=== PATIENT | male | born 1985 | race Caucasian/White ===

== ENCOUNTER → 2017-10-28 | Outpatient (CLI) | payer BC, OTHER ==
--- NOTE | 2017-10-28 15:37 | US ---
EXAMINATION TYPE: US carotid duplex BILAT DATE OF EXAM: 10/28/2017 COMPARISON: NONE CLINICAL HISTORY: R42 DIZZINESS. only symptoms is dizziness, no h/o stroke or high bp EXAM MEASUREMENTS: RIGHT: Peak Systolic Velocity (PSV) cm/sec ----- Right CCA: 95.2 ----- Right ICA: 73.5 ----- Right ECA: 95.2 ICA/CCA ratio: 0.8 RIGHT: End Diastole cm/sec ----- Right CCA: 18.2 ----- Right ICA: 32.2 ----- Right ECA: 22.7 LEFT: Peak Systolic Velocity (PSV) cm/sec ----- Left CCA: 89.6 ----- Left ICA: 74.5 ----- Left ECA: 84.3 ICA/CCA ratio: 0.8 LEFT: End Diastole cm/sec ----- Left CCA: 24.1 ----- Left ICA: 33.9 ----- Left ECA: 19.8 VERTEBRALS (direction of flow): Right Vertebral: Antegrade Left Vertebral: Antegrade Rhythm: Normal Mild homogeneous plaque seen with no significant stenosis IMPRESSION: 1. Minimal intimal thickening without significant flow-limiting stenosis. Criteria for Assigning % of Stenosis / Diameter reduction (Estimation based on the indirect measurements of the internal carotid artery velocities (ICA PSV). 1. Normal (no stenosis)=ICA PSV < 125 cm/s: ratio < 2.0: ICA EDV<40 cm/s. 2. Less than 50% stenosis=ICA PSV < 125 cm/s: ratio < 2.0: ICA EDV<40 cm/s. 3. 50 to 69% stenosis=ICA PSV of 125 to 230 cm/s: ration 2.0 ? 4.0: ICA EDV 40-100 cm/s. 4. Greater than 70% stenosis to near occlusion= ICA PSV > 230 cm/s: ratio > 4.0: ICA EDV > 100 cm/s. 5. Near occlusion= ICA PSV velocities may be low or undetectable: variable ratio and ICA EDV. 6. Total occlusion=unable to detect flow.
== END | disposition home or self-care (01) ==
LOC: RADUSWWP 14:48
PROVIDERS: ATTEND Psychiatry & Neurology Neurology
DX: I77.89 Other specified disorders of arteries and arterioles (principal)
CPT/HCPCS: 93880

== ENCOUNTER 2021-01-25 08:35 | Inpatient (IN) | payer BC, OTHER ==
[2021-01-25] MEDS ORDERED: ONDANSETRON 4 MG/2 ML VIAL IVP PRN (09:00)
[2021-01-25 11:00] LABS: Anisocytosis Moderate; HCT 26.7 % (39.0-53.0); Hypochromasia Marked; MCH 32.8 pg (25.0-35.0); MCHC 30.2 g/dL (31.0-37.0); MCV 108.6 fL (80.0-100.0); Macrocytosis Marked; Poikilocytosis Slight; RBC 2.45 m/uL (4.30-5.90); RDW 21.2 % (11.5-15.5)
[2021-01-25 11:11] LABS: Prothrombin Time 10.5 sec (9.0-12.0)
[2021-01-25 11:51] LABS: ALT 28 U/L (4-49); AST 47 U/L (17-59); African American GFR (CKD) >90 (>60 ml/min/1.73 sqM); Albumin 4.2 g/dL (3.5-5.0); Albumin/Globulin Ratio 1.6; Alkaline Phosphatase 66 U/L (38-126); Anion Gap 7 mmol/L; Blood Urea Nitrogen 14 mg/dL (9-20); Calcium 9.4 mg/dL (8.4-10.2); Carbon Dioxide 28 mmol/L (22-30); Chloride 106 mmol/L (98-107); Globulin 2.6 g/dL; Glucose 123 mg/dL (74-99); Non-African American GFR(CKD) >90 (>60 ml/min/1.73 sqM); Phosphorus 4.2 mg/dL (2.5-4.5); Potassium 4.1 mmol/L (3.5-5.1); Sodium 141 mmol/L (137-145); Total Bilirubin 0.7 mg/dL (0.2-1.3); Total Protein 6.8 g/dL (6.3-8.2); Uric Acid 7.9 mg/dL (3.5-8.5)
[2021-01-25] MEDS: SODIUM CHLORIDE 0.9% 1,000 ML IV SCH ×2 (11:57→18:09)
[2021-01-25] MEDS: SALT AND SODA MOUTHWASH 1,000 ML PO SCH ×3 (11:57→19:34)
[2021-01-25 12:00] LABS: Platelet Count 15 k/uL (150-450)
[2021-01-25 12:09] LABS: Band Neutrophils % 1 %; Metamyelocytes % 1 %; Myelocytes % 2 %; Neutrophils % (M) 24 %; Promyelocytes % 1 %
[2021-01-25 12:11] LABS: Nucleated Red Blood Cells 7 /100 WBC (0-0); Total Cells Counted 200
[2021-01-25 12:12] LABS: Metamyelocytes # (M) 0.39 k/uL (0); Monocytes # (M) 0.79 k/uL (0-1.0); Myelocytes # (M) 0.79 k/uL (0); Promyelocytes # (M) 0.39 k/uL (0); WBC 39.3 k/uL (3.8-10.6)
[2021-01-25 12:14] LABS: Polychromasia Present
[2021-01-25] MEDS ORDERED: LIDOCAINE 1% INJ 10MG/ML (20 ML MDV) SQ ONE (12:42)
[2021-01-25] MEDS ORDERED: metroNIDAZOLE 250 MG TABLET PO SCH (13:00)
--- NOTE | 2021-01-25 13:24 | IR ---
PICC LINE PLACEMENT: HISTORY: Infection requiring long-term antibiotic therapy PROCEDURE: Ultrasound and fluoroscopic guidance of PICC line placement. COMPLICATIONS: None ANESTHESIA: 1. 1% Lidocaine locally. FINDINGS/TECHNIQUE: The procedure was explained to the patient. The risks, complications, benefits and alternatives were discussed and any questions were answered. Informed consent was obtained. The patient was placed supine on the fluoroscopic table and prepped and draped in the usual sterile fash ion. Utilizing a 21 gauge needle and sonographic and fluoroscopic guidance, access in the basilic v ein was achieved and there is placement of a 0.018 guidewire. The vein is patent. A 4-F sheath was placed over the guidewire. The guidewire and dilator were removed and a 4-F. PICC line was placed th rough the sheath with the tip at the level of the SVC. The sheath was removed, the catheter was flus hed and sutured into position. The patient was stable throughout the procedure and remained stable u juan discharge from the Department of Radiology. The vein puncture was patent under ultrasound. A ortega scale image was obtained to document patency of the vein punctured. All elements of the maximal barrier technique were utilized. FLUOROSCOPY TIME: 0.2 minutes and one image submitted IMPRESSION: Successful PICC line placement under ultrasound and fluoroscopic guidance.
[2021-01-25] MEDS: PENICILLIN VK 500 MG TAB PO SCH ×2 (14:25→18:09)
[2021-01-25] MEDS: LEVOFLOXACIN 500 MG TAB PO SCH (14:26)
[2021-01-25] MEDS: DEXAMETHASONE SOD PHOSPHATE 10 MG/ML 1 ML VIAL IV SCH (14:27)
[2021-01-25] MEDS: FAMOTIDINE 20 MG/2 ML VIAL IV SCH (14:27)
[2021-01-25] MEDS: ONDANSETRON 16 MG in SODIUM CHLORIDE 0.9% 50 ML IVPB SCH (14:27)
[2021-01-25] MEDS: CYTARABINE IV SCH (15:23)
[2021-01-25] MEDS: IDArubicin HCL 20 MG, IDArubicin HCL 4 MG in EMPTY SYRINGE 1 SYR IV SCH ×2 (15:23)
[2021-01-25] MEDS: SODIUM CHLORIDE 0.9% IV SCH (15:23)
--- NOTE | 2021-01-25 16:54 | P.HPIM ---
History of Present Illness H&P Date: 01/25/21 Chief Complaint: AML, admit for CIVI induction chemotherapy with 7+3 regimen Mr. Ramos is a very pleasant 35-year-old male patient who recently had an abscessed tooth. Around the same time it was noted that his white count was increasing and his other counts were decreasing, he was also experiencing some mildly unusual fatigue. He was evaluated by Dr. Gresham and found to have a serial increasing white count as well as serial decreasing hemoglobin and platelets. Patient's hemoglobin has went from normal to 8 and about a week and a half. He had bone marrow biopsy and aspirate last week, preliminary results called to Dr. Gresham 2 days ago, unfortunate diagnosis of AML. Cytogenetics are pending. Patient is admitted today for CIVI 7 +3 induction chemotherapy regimen than for acute myeloid leukemia. He comes in today with no physical complaints and a 14 point review of systems, he is denying any current bleeding, some easy bruising, he is still on medication for his abscessed tooth. He has brought that with him. Review of Systems 14 point ROS is neg except as stated in HPI Past Medical History Past Medical History: Cancer Additional Past Medical History / Comment(s): AML, anemia/low RBC, elevated WBC, recent root canal with infection being treated with abx, occasional back pain History of Any Multi-Drug Resistant Organisms: None Reported Past Surgical History: Tonsillectomy Additional Past Surgical History / Comment(s): BMA/biopsy, EGD, colonoscopy Past Anesthesia/Blood Transfusion Reactions: No Reported Reaction Past Psychological History: No Psychological Hx Reported Smoking Status: Never smoker Past Alcohol Use History: None Reported Past Drug Use History: None Reported - Past Family History Mother Family Medical History: No Reported History Father Family Medical History: Osteoarthritis (OA) Medications and Allergies Home Medications Medication Instructions Recorded Confirmed Type Chlorhexidine Gluconate [Peridex] 15 ml PO DAILY 01/25/21 01/25/21 History Omeprazole [PriLOSEC] 40 mg PO BID 01/25/21 01/25/21 History Penicillin V Potassium [Pen Vee K] 500 mg PO QID 01/25/21 01/25/21 History metroNIDAZOLE [Flagyl] 250 mg PO QID 01/25/21 01/25/21 History Allergies Allergy/AdvReac Type Severity Reaction Status Date / Time No Known Allergies Allergy Verified 05/09/15 17:49 Physical Exam Vitals: Vital Signs Temp Pulse Resp BP Pulse Ox 01/25/21 09:23 98.1 F 93 18 137/86 99 Intake and Output 01/24/21 01/25/21 01/25/21 22:59 06:59 14:59 Other: Weight 106.9 kg - Constitutional General appearance: average body habitus, cooperative, no acute distress - EENT abscess tooth Eyes: anicteric sclerae, EOMI ENT: no hard of hearing, hearing grossly normal, no NA/AT, normal oropharynx, no other, no pharyngeal erythema, no thrush, no tonsillar exudates, no tonsillar swelling - Neck Neck: no lymphadenopathy, normal ROM - Respiratory Respiratory: bilateral: CTA - Cardiovascular Rhythm: regular Heart sounds: normal: S1, S2 Abnormal Heart Sounds: no systolic murmur, no diastolic murmur, no rub, no S3 Gallop, no S4 Gallop, no click, no other leg Peripheral Edema: bilateral: None - Gastrointestinal General gastrointestinal: no absent bowel sounds, no decreased bowel sounds, no distended, no hepatomegaly, no hyperactive bowel sounds, normal bowel sounds, no organomegaly, no rigid, no scaphoid, soft, no splenomegaly, no tenderness, no umbilical hernia, no ventral hernia - Integumentary Integumentary: normal, normal turgor - Neurologic Neurologic: CNII-XII intact - Musculoskeletal Musculoskeletal: strength equal bilaterally - Psychiatric Psychiatric: A&O x's 3, appropriate affect, intact judgment & insight Results CBC & Chem 7: 01/25/21 10:32 01/25/21 10:32 Thrombosis Risk Factor Assmnt - DVT/VTE Prophylaxis DVT/VTE Prophylaxis: Contraindicated - See note (Platelets are 15,000) - Choose All That Apply Any of the Below Risk Factors Present?: Yes Each Factor Represents 1 point: Obesity (BMI >25) Other Risk Factors: Yes Each Risk Factor Represents 2 Points: Malignancy Other congenital or acquired thrombophilia - If yes, enter type in comment: No Thrombosis Risk Factor Assessment Total Risk Factor Score: 3 Thrombosis Risk Factor Assessment Level: Moderate Risk Assessment and Plan (1) AML (acute myeloid leukemia) Narrative/Plan: New diagnosis, still pending cytology. Dr. Gresham reviewed the pathology, treatment recommendations as well as the follow-up plan. Risks versus benefit. Prognosis. F/U plans. Admit for 7+3 induction chemotherapy regimen. Orders reviewed. PICC line placement. Chemotherapy education, RN will provide. Diet as tolerated, liberal fluid intake Activity as tolerated, mandatory ambulation 4 times a day Supportive medications ordered. CBC and CMP monitoring. Uric acid and phos daily. Elitek will be ordered if needed for TLS. Current Visit: Yes Status: Acute Priority: High Code(s): C92.00 - ACUTE MYELOBLASTIC LEUKEMIA, NOT HAVING ACHIEVED REMISSION SNOMED Code(s): 59799783 (2) Tooth abscess Narrative/Plan: Patient brought his oral rinse medication from home. He will continue this as prescribed. RN will send him down to Pharmacy for documentation. Levaquin 500 mg by mouth daily added Current Visit: Yes Status: Acute Priority: High Code(s): K04.7 - P ERIAPICAL ABSCESS WITHOUT SINUS SNOMED Code(s): 148114063 Plan: Doctor attests: I performed a history and physical examination of this patient, developed impression and plan of care. Discussed with dictator. I agree with dictators note, documented as a scribe. Time with Patient: Greater than 30
[2021-01-26] MEDS: SALT AND SODA MOUTHWASH 1,000 ML PO SCH ×5 (00:13→20:31)
[2021-01-26] MEDS: SODIUM CHLORIDE 0.9% 1,000 ML IV SCH ×3 (00:15→18:31)
[2021-01-26 06:45] LABS: ALT 23 U/L (4-49); AST 39 U/L (17-59); African American GFR (CKD) >90 (>60 ml/min/1.73 sqM); Albumin 3.6 g/dL (3.5-5.0); Albumin/Globulin Ratio 1.6; Alkaline Phosphatase 57 U/L (38-126); Anion Gap 3 mmol/L; Blood Urea Nitrogen 16 mg/dL (9-20); Calcium 8.6 mg/dL (8.4-10.2); Carbon Dioxide 27 mmol/L (22-30); Chloride 108 mmol/L (98-107); Globulin 2.3 g/dL; Glucose 116 mg/dL (74-99); Non-African American GFR(CKD) >90 (>60 ml/min/1.73 sqM); Phosphorus 4.1 mg/dL (2.5-4.5); Sodium 138 mmol/L (137-145); Total Bilirubin 0.7 mg/dL (0.2-1.3); Total Protein 5.9 g/dL (6.3-8.2); Uric Acid 5.9 mg/dL (3.5-8.5)
[2021-01-26 06:46] LABS: Anisocytosis Moderate; HCT 23.9 % (39.0-53.0); Hypochromasia Marked; MCHC 29.2 g/dL (31.0-37.0); MCV 109.6 fL (80.0-100.0); Macrocytosis Marked; Mean Platelet Volume 6.3; Poikilocytosis Slight; Potassium 4.1 mmol/L (3.5-5.1); RBC 2.18 m/uL (4.30-5.90); RDW 21.3 % (11.5-15.5)
[2021-01-26 07:08] LABS: Platelet Count 15 k/uL (150-450)
[2021-01-26] MEDS ORDERED: ENOXAPARIN 40 MG/0.4 ML SYRINGE SQ SCH (09:00)
[2021-01-26] MEDS: LEVOFLOXACIN 500 MG TAB PO SCH (12:55)
[2021-01-26 13:29] LABS: Metamyelocytes % 1 %; Myelocytes % 2 %; Neutrophils % (M) 33 %; Promyelocytes % 2 %
[2021-01-26 13:30] LABS: Lymphocytes # (M) 4.65 k/uL (1.0-4.8); Metamyelocytes # (M) 0.33 k/uL (0); Monocytes # (M) 0.33 k/uL (0-1.0); Myelocytes # (M) 0.66 k/uL (0); Neutrophils # (M) 10.96 k/uL (1.3-7.7); Nucleated Red Blood Cells 7 /100 WBC (0-0); Promyelocytes # (M) 0.66 k/uL (0); Total Cells Counted 200; WBC 33.2 k/uL (3.8-10.6)
[2021-01-26 13:31] LABS: Polychromasia Present
[2021-01-26] MEDS: DEXAMETHASONE SOD PHOSPHATE 10 MG/ML 1 ML VIAL IV SCH (16:12)
[2021-01-26] MEDS: ONDANSETRON 16 MG in SODIUM CHLORIDE 0.9% 50 ML IVPB SCH (16:12)
[2021-01-26] MEDS: FAMOTIDINE 20 MG/2 ML VIAL IV SCH (16:12)
[2021-01-26] MEDS: IDArubicin HCL 20 MG, IDArubicin HCL 4 MG in EMPTY SYRINGE 1 SYR IV SCH ×2 (16:25)
[2021-01-26] MEDS: CYTARABINE IV SCH (16:26)
[2021-01-26] MEDS: SODIUM CHLORIDE 0.9% IV SCH (16:26)
--- NOTE | 2021-01-26 17:14 | P.PN ---
Subjective Progress Note Date: 01/26/21 Principal diagnosis: Day two of Induction with Chemotherapy for AML Some oozing around picc line, no swelling, no pain Platelets 15K, Hemoglobin 7. Afebrile Objective - Vital Signs Vital signs: Vital Signs Temp 98.0 F 01/26/21 12:00 Pulse 74 01/26/21 12:00 Resp 17 01/26/21 12:00 BP 115/73 01/26/21 12:00 Pulse Ox 99 01/26/21 12:00 Intake & Output 01/25/21 01/26/21 01/26/21 18:59 06:59 18:59 Intake Total 550 2840 Balance 550 2840 Weight 106.9 kg Intake: Intake, IV Titration 550 1760 Amount Cytarabine 400 mg In 260 Sodium Chloride 0.9% 500 ml 500 ml @ 21.667 mls/hr IV Q24H [facility] Rx#: [id number] Ondansetron 16 mg In 50 Sodium Chloride 0.9% 50 ml @ 232 mls/hr IVPB Q24H [facility] Rx#:[id number] Sodium Chloride 0.9% 1, 500 1500 000 ml @ 125 mls/hr IV . Q8H [facility] Rx#:[id number] Oral 1080 - Exam - Constitutional General appearance: average body habitus, cooperative, no acute distress - EENT abscess tooth Eyes: anicteric sclerae, EOMI ENT: no hard of hearing, hearing grossly normal, no NA/AT, normal oropharynx, no other, no pharyngeal erythema, no thrush, no tonsillar exudates, no tonsillar swelling - Neck Neck: no lymphadenopathy, normal ROM - Respiratory Respiratory: bilateral: CTA - Cardiovascular Rhythm: regular Heart sounds: normal: S1, S2 Abnormal Heart Sounds: no systolic murmur, no diastolic murmur, no rub, no S3 Gallop, no S4 Gallop, no click, no other leg Peripheral Edema: bilateral: None - Gastrointestinal General gastrointestinal: no absent bowel sounds, no decreased bowel sounds, no distended, no hepatomegaly, no hyperactive bowel sounds, normal bowel sounds, no organomegaly, no rigid, no scaphoid, soft, no splenomegaly, no tenderness, no umbilical hernia, no ventral hernia - Integumentary Integumentary: normal, normal turgor - Neurologic Neurologic: CNII-XII intact - Musculoskeletal Musculoskeletal: strength equal bilaterally - Psychiatric Psychiatric: A&O x's 3, appropriate affect, intact judgment & insight - Labs CBC & Chem 7: 01/26/21 06:14 01/26/21 06:14 Labs: Abnormal Lab Results - Last 24 Hours (Table) 01/26/21 01/26/21 Range/Units 06:14 06:14 WBC 33.2 H (3.8-10.6) k/uL RBC 2.18 L (4.30-5.90) m/uL Hgb 7.0 L (13.0-17.5) gm/dL Hct 23.9 L (39.0-53.0) % MCV 109.6 H (80.0-100.0) fL MCHC 29.2 L (31.0-37.0) g/dL RDW 21.3 H (11.5-15.5) % Plt Count 15 L* (150-450) k/uL Blast Cells % 50 H* % Neutrophils # (Manual) 10.96 H (1.3-7.7) k/uL Metamyelocytes # (Man) 0.33 H (0) k/uL Myelocytes # (Manual) 0.66 H (0) k/uL Promyelocytes # (Man) 0.66 H (0) k/uL Blast Cells # (Man) 16.60 H (0) k/uL Nucleated RBCs 7 H (0-0) /100 WBC Macrocytosis Marked A Chloride 108 H (98-107) mmol/L Glucose 116 H (74-99) mg/dL Total Protein 5.9 L (6.3-8.2) g/dL Assessment and Plan Plan: Thrombosis Risk Factor Assmnt - DVT/VTE Prophylaxis DVT/VTE Prophylaxis: Contraindicated - See note (Platelets are 15,000) - Choose All That Apply Any of the Below Risk Factors Present?: Yes Each Factor Represents 1 point: Obesity (BMI >25) Other Risk Factors: Yes Each Risk Factor Represents 2 Points: Malignancy Other congenital or acquired thrombophilia - If yes, enter type in comment: No Thrombosis Risk Factor Assessment Total Risk Factor Score: 3 Thrombosis Risk Factor Assessment Level: Moderate Risk Assessment and Plan: AML (acute myeloid leukemia) - New diagnosis, still pending cytology. - Dr. Gresham reviewed the pathology, treatment recommendations as well as the follow-up plan. Risks versus benefit. Prognosis. F/U plans. - Continue with Day 2 of 7+3 induction chemotherapy regimen. - Status Post Picc Line Activity as tolerated, mandatory ambulation 4 times a day Supportive medications ordered. CBC and CMP monitoring. Uric acid and phos daily. Elitek will be ordered if needed for TLS. Current Visit: Yes Status: Acute Priority: High Code(s): C92.00 - ACUTE MYELOBLASTIC LEUKEMIA, NOT HAVING ACHIEVED REMISSION SNOMED Code(s): 21636362 Tooth abscess Patient brought his oral rinse medication from home. He will continue this as prescribed. RN will send him down to Pharmacy for documentation. Levaquin 500 mg by mouth daily added Current Visit: Yes Status: Acute Priority: High Code(s): K04.7 - PERIAPICAL ABSCESS WITHOUT SINUS SNOMED Code(s): 184997960 Plan: Doctor attests: I performed a history and physical examination of this patient, developed impression and plan of care. Discussed with dictator. I agree with dictators note, documented as a scribe.
[2021-01-27] MEDS: SALT AND SODA MOUTHWASH 1,000 ML PO SCH ×6 (00:16→23:57)
[2021-01-27] MEDS: SODIUM CHLORIDE 0.9% 1,000 ML IV SCH ×3 (02:29→16:48)
[2021-01-27 05:56] LABS: Anisocytosis Moderate; HCT 22.6 % (39.0-53.0); Hypochromasia Marked; MCH 33.2 pg (25.0-35.0); MCHC 30.2 g/dL (31.0-37.0); MCV 109.9 fL (80.0-100.0); Macrocytosis Marked; Mean Platelet Volume 7.5; Poikilocytosis Slight; RBC 2.06 m/uL (4.30-5.90); RDW 20.9 % (11.5-15.5)
[2021-01-27 06:05] LABS: HGB 6.8 gm/dL (13.0-17.5); Platelet Count 12 k/uL (150-450)
[2021-01-27 06:10] LABS: Prothrombin Time 10.3 sec (9.0-12.0)
[2021-01-27 06:13] LABS: Partial Thromboplastin Time 18.9 sec (22.0-30.0)
[2021-01-27 06:16] LABS: Potassium 4.2 mmol/L (3.5-5.1)
[2021-01-27 06:17] LABS: ALT 20 U/L (4-49); AST 37 U/L (17-59); African American GFR (CKD) >90 (>60 ml/min/1.73 sqM); Albumin 3.3 g/dL (3.5-5.0); Albumin/Globulin Ratio 1.4; Alkaline Phosphatase 60 U/L (38-126); Anion Gap 3 mmol/L; Blood Urea Nitrogen 15 mg/dL (9-20); Calcium 8.6 mg/dL (8.4-10.2); Carbon Dioxide 26 mmol/L (22-30); Chloride 110 mmol/L (98-107); Globulin 2.4 g/dL; Glucose 125 mg/dL (74-99); Non-African American GFR(CKD) >90 (>60 ml/min/1.73 sqM); Phosphorus 4.1 mg/dL (2.5-4.5); Sodium 139 mmol/L (137-145); Total Bilirubin 0.6 mg/dL (0.2-1.3); Total Protein 5.7 g/dL (6.3-8.2); Uric Acid 6.4 mg/dL (3.5-8.5)
[2021-01-27 06:27] LABS: LDH 2124 U/L (313-618); Neutrophils % (M) 47 %; Nucleated Red Blood Cells 10 /100 WBC (0-0); Total Cells Counted 200
[2021-01-27 06:28] LABS: Blast Cells # (M) 9.36 k/uL (0); Lymphocytes # (M) 1.66 k/uL (1.0-4.8); Neutrophils # (M) 9.78 k/uL (1.3-7.7); WBC 20.8 k/uL (3.8-10.6)
[2021-01-27 06:29] LABS: Anisocytosis (M) Present; Poikilocytosis (M) Present; Polychromasia Present
--- NOTE | 2021-01-27 10:01 | P.PN ---
Subjective Progress Note Date: 01/27/21 Principal diagnosis: AML Pancytopenia Hgb 6.8, Plt 12 today. Today is D3 of chemotherapy. Tolerating well so far. Objective - Vital Signs Vital signs: Vital Signs Temp 98.3 F 01/27/21 08:00 Pulse 89 01/27/21 08:00 Resp 19 01/27/21 08:00 BP 117/70 01/27/21 08:00 Pulse Ox 98 01/27/21 08:00 Intake & Output 01/26/21 01/27/21 01/27/21 18:59 06:59 18:59 Intake Total 2520 Balance 2520 Intake: Intake, IV Titration 1440 Amount Cytarabine 400 mg In 240 Sodium Chloride 0.9% 500 ml 500 ml @ 21.667 mls/hr IV Q24H [facility] Rx#: [id number] Sodium Chloride 0.9% 1, 1200 000 ml @ 125 mls/hr IV . Q8H [facility] Rx#:[id number] Oral 1080 Other: # Voids 2 1 - Exam Gen: No acute distress HEENT: Conjunctival pallor. Neck: Supple Lungs: No respiratory distress Heart: Normal rate Abdomen: Soft MSK: No obvious deformities Neuro: Alert and oriented 3 Psych: Appropriate affect Skin: No jaundice - Labs CBC & Chem 7: 01/27/21 05:07 01/27/21 05:07 Labs: Abnormal Lab Results - Last 24 Hours (Table) 01/26/21 01/27/21 01/27/21 Range/Units 06:14 05:07 05:07 WBC 33.2 H 20.8 H (3.8-10.6) k/uL RBC 2.06 L (4.30-5.90) m/uL Hgb 6.8 L* (13.0-17.5) gm/dL Hct 22.6 L (39.0-53.0) % MCV 109.9 H (80.0-100.0) fL MCHC 30.2 L (31.0-37.0) g/dL RDW 20.9 H (11.5-15.5) % Plt Count 12 L* (150-450) k/uL Blast Cells % 50 H* 45 H* % Neutrophils # (Manual) 10.96 H 9.78 H (1.3-7.7) k/uL Lymphocytes # 6.1 H (1.0-4.8) k/uL Monocytes # 3.9 H (0-1.0) k/uL Metamyelocytes # (Man) 0.33 H (0) k/uL Myelocytes # (Manual) 0.66 H (0) k/uL Promyelocytes # (Man) 0.66 H (0) k/uL Blast Cells # (Man) 16.60 H 9.36 H (0) k/uL Nucleated RBCs 7 H 10 H (0-0) /100 WBC Macrocytosis Marked A APTT (22.0-30.0) sec Chloride 110 H (98-107) mmol/L Glucose 125 H (74-99) mg/dL Lactate Dehydrogenase 2124 H (313-618) U/L Total Protein 5.7 L (6.3-8.2) g/dL Albumin 3.3 L (3.5-5.0) g/dL 01/27/21 Range/Units 05:07 WBC (3.8-10.6) k/uL RBC (4.30-5.90) m/uL Hgb (13.0-17.5) gm/dL Hct (39.0-53.0) % MCV (80.0-100.0) fL MCHC (31.0-37.0) g/dL RDW (11.5-15.5) % Plt Count (150-450) k/uL Blast Cells % % Neutrophils # (Manual) (1.3-7.7) k/uL Lymphocytes # (1.0-4.8) k/uL Monocytes # (0-1.0) k/uL Metamyelocytes # (Man) (0) k/uL Myelocytes # (Manual) (0) k/uL Promyelocytes # (Man) (0) k/uL Blast Cells # (Man) (0) k/uL Nucleated RBCs (0-0) /100 WBC Macrocytosis APTT 18.9 L (22.0-30.0) sec Chloride (98-107) mmol/L Glucose (74-99) mg/dL Lactate Dehydrogenase (313-618) U/L Total Protein (6.3-8.2) g/dL Albumin (3.5-5.0) g/dL Assessment and Plan Assessment: AML Pancytopenia due to AML Plan: Mr. Ramos is a very pleasant 35 yo male with newly found AML who is here for induction chemotherapy with 7+3. Today's day 3 of chemo. Tolerating well so far. Continues to have bicytopenia with leukocytosis, white count decreasing slowly down to 20 today, and hemoglobin 6.8 with platelets of 12 today. Plan on PRBC transfusion today, irradiated blood products. Continue with supportive transfusion with leuko-reduced and irradiated blood products to maintain hemoglobin of 7 and platelets above 10 or bleeding. Continue chemotherapy. Continue supportive medications. Discussed with patient is agreeable to the plan. All of his questions were answered.
[2021-01-27] MEDS: LEVOFLOXACIN 500 MG TAB PO SCH (13:15)
[2021-01-27] MEDS: FAMOTIDINE 20 MG/2 ML VIAL IV SCH (16:42)
[2021-01-27] MEDS: DEXAMETHASONE SOD PHOSPHATE 10 MG/ML 1 ML VIAL IV SCH (16:42)
[2021-01-27] MEDS: ONDANSETRON 16 MG in SODIUM CHLORIDE 0.9% 50 ML IVPB SCH (16:42)
[2021-01-27] MEDS: IDArubicin HCL 20 MG, IDArubicin HCL 4 MG in EMPTY SYRINGE 1 SYR IV SCH ×2 (16:50)
[2021-01-27] MEDS: CYTARABINE IV SCH (16:52)
[2021-01-27] MEDS: SODIUM CHLORIDE 0.9% IV SCH (16:52)
[2021-01-28] MEDS: SODIUM CHLORIDE 0.9% 1,000 ML IV SCH ×2 (02:22→12:46)
[2021-01-28 05:54] LABS: Anisocytosis Moderate; HCT 23.6 % (39.0-53.0); HGB 7.5 gm/dL (13.0-17.5); Hypochromasia Marked; MCH 33.6 pg (25.0-35.0); MCHC 31.8 g/dL (31.0-37.0); MCV 105.7 fL (80.0-100.0); Macrocytosis Marked; Mean Platelet Volume 7.5; Poikilocytosis Moderate; RBC 2.24 m/uL (4.30-5.90); RDW 21.3 % (11.5-15.5); WBC 6.5 k/uL (3.8-10.6)
[2021-01-28 06:04] LABS: ALT 19 U/L (4-49); AST 30 U/L (17-59); African American GFR (CKD) >90 (>60 ml/min/1.73 sqM); Albumin 3.5 g/dL (3.5-5.0); Albumin/Globulin Ratio 1.5; Alkaline Phosphatase 51 U/L (38-126); Anion Gap 3 mmol/L; Blood Urea Nitrogen 16 mg/dL (9-20); Calcium 8.7 mg/dL (8.4-10.2); Carbon Dioxide 26 mmol/L (22-30); Chloride 111 mmol/L (98-107); Globulin 2.3 g/dL; Glucose 126 mg/dL (74-99); Non-African American GFR(CKD) >90 (>60 ml/min/1.73 sqM); Phosphorus 4.3 mg/dL (2.5-4.5); Potassium 4.3 mmol/L (3.5-5.1); Sodium 140 mmol/L (137-145); Total Bilirubin 0.7 mg/dL (0.2-1.3); Total Protein 5.8 g/dL (6.3-8.2); Uric Acid 5.8 mg/dL (3.5-8.5)
[2021-01-28 06:31] LABS: Platelet Count 10 k/uL (150-450)
[2021-01-28 07:29] LABS: Band Neutrophils % 1 %; Lymphocytes # (M) 0.52 k/uL (1.0-4.8); Neutrophils % (M) 69 %
[2021-01-28 07:30] LABS: Blast Cells # (M) 1.56 k/uL (0); Nucleated Red Blood Cells 0 /100 WBC (0-0); Total Cells Counted 200
--- NOTE | 2021-01-28 10:12 | P.PN ---
Subjective Progress Note Date: 01/28/21 Principal diagnosis: AML Leukocytosis Anemia Thrombocytopenia Hgb 7.5 after 1 unit pRBC yesterday, Plt 10 today. Today is D4 of chemotherapy. Tolerating well so far. Objective - Vital Signs Vital signs: Vital Signs Temp 97.6 F 01/28/21 08:00 Pulse 83 01/28/21 08:00 Resp 18 01/28/21 08:00 BP 145/73 01/28/21 08:00 Pulse Ox 95 01/28/21 08:00 Intake & Output 01/27/21 01/28/21 01/28/21 18:59 06:59 18:59 Intake Total 2500 3350 Balance 2500 3350 Intake: Intake, IV Titration 1000 1500 Amount Sodium Chloride 0.9% 1, 1000 1500 000 ml @ 125 mls/hr IV . Q8H [facility] Rx#:[id number] Oral 1500 1540 Blood Product 310 Rc Irr As1 Unit 310 [id number] Other: # Voids 2 - Exam Gen: No acute distress HEENT: Conjunctival pallor. Neck: Supple Lungs: No respiratory distress Heart: Normal rate Abdomen: Soft MSK: No obvious deformities Neuro: Alert and oriented 3 Psych: Appropriate affect Skin: No jaundice - Labs CBC & Chem 7: 01/28/21 04:51 01/28/21 04:51 Labs: Abnormal Lab Results - Last 24 Hours (Table) 01/27/21 01/28/21 01/28/21 Range/Units 09:46 04:51 04:51 RBC 2.24 L (4.30-5.90) m/uL Hgb 7.5 L (13.0-17.5) gm/dL Hct 23.6 L (39.0-53.0) % MCV 105.7 H (80.0-100.0) fL RDW 21.3 H (11.5-15.5) % Plt Count 10 L* (150-450) k/uL Blast Cells % 24 H* % Lymphocytes # (Manual) 0.52 L (1.0-4.8) k/uL Blast Cells # (Man) 1.56 H (0) k/uL Macrocytosis Marked A Chloride 111 H (98-107) mmol/L Glucose 126 H (74-99) mg/dL Total Protein 5.8 L (6.3-8.2) g/dL Crossmatch See Detail Assessment and Plan Assessment: AML Leukocytosis due to AML Bicytopenia, anemia and thrombocytopenia, due to AML Plan: Mr. Ramos is a very pleasant 35 yo male with newly found AML who is here for induction chemotherapy with 7+3. Today's day 4 of chemo. Tolerating well so far. Continues to have bicytopenia with leukocytosis, white count decreasing slowly down to 6.5 today, and hemoglobin 7.5 after 1 unit pRBC yesterday, with platelets of 10 today. Plan on plt transfusion today, irradiated blood products. Continue with supportive transfusion with leuko-reduced and irradiated blood products to maintain hemoglobin of 7 and platelets above 10 or bleeding. Monitor for TLS, no signs of this at this time. Continue chemotherapy. Continue supportive medications. Discussed with patient is agreeable to the plan. All of his questions were an swered.
[2021-01-28] MEDS: LEVOFLOXACIN 500 MG TAB PO SCH (12:45)
[2021-01-28] MEDS: SALT AND SODA MOUTHWASH 1,000 ML PO SCH ×4 (12:46→19:25)
[2021-01-28] MEDS: FAMOTIDINE 20 MG/2 ML VIAL IV SCH (16:32)
[2021-01-28] MEDS: DEXAMETHASONE SOD PHOSPHATE 10 MG/ML 1 ML VIAL IV SCH (16:32)
[2021-01-28] MEDS: ONDANSETRON 16 MG in SODIUM CHLORIDE 0.9% 50 ML IVPB SCH (16:32)
[2021-01-28] MEDS: CYTARABINE IV SCH (17:03)
[2021-01-28] MEDS: SODIUM CHLORIDE 0.9% IV SCH (17:03)
[2021-01-29] MEDS: SODIUM CHLORIDE 0.9% 1,000 ML IV SCH ×4 (00:10→17:10)
[2021-01-29] MEDS: SALT AND SODA MOUTHWASH 1,000 ML PO SCH ×5 (00:12→20:27)
[2021-01-29 05:47] LABS: Anisocytosis Moderate; HCT 22.6 % (39.0-53.0); HGB 7.3 gm/dL (13.0-17.5); Hypochromasia Marked; MCH 33.7 pg (25.0-35.0); MCHC 32.4 g/dL (31.0-37.0); MCV 104.2 fL (80.0-100.0); Macrocytosis Marked; Mean Platelet Volume 7.4; Poikilocytosis Moderate; RBC 2.17 m/uL (4.30-5.90); RDW 20.2 % (11.5-15.5)
[2021-01-29 05:53] LABS: Platelet Count 12 k/uL (150-450)
[2021-01-29 06:08] LABS: ALT 17 U/L (4-49); AST 24 U/L (17-59); African American GFR (CKD) >90 (>60 ml/min/1.73 sqM); Albumin 3.5 g/dL (3.5-5.0); Albumin/Globulin Ratio 1.5; Alkaline Phosphatase 44 U/L (38-126); Anion Gap 5 mmol/L; Blood Urea Nitrogen 16 mg/dL (9-20); Calcium 9.1 mg/dL (8.4-10.2); Carbon Dioxide 26 mmol/L (22-30); Chloride 108 mmol/L (98-107); Globulin 2.4 g/dL; Glucose 126 mg/dL (74-99); Non-African American GFR(CKD) >90 (>60 ml/min/1.73 sqM); Phosphorus 4.4 mg/dL (2.5-4.5); Potassium 4.2 mmol/L (3.5-5.1); Sodium 139 mmol/L (137-145); Total Bilirubin 0.7 mg/dL (0.2-1.3); Total Protein 5.9 g/dL (6.3-8.2); Uric Acid 4.9 mg/dL (3.5-8.5)
[2021-01-29 06:36] LABS: Band Neutrophils % 6 %; Neutrophils % (M) 68 %; Nucleated Red Blood Cells 10 /100 WBC (0-0); Total Cells Counted 100
[2021-01-29 06:37] LABS: Lymphocytes # (M) 0.17 k/uL (1.0-4.8); WBC 1.4 k/uL (3.8-10.6)
[2021-01-29 06:38] LABS: Anisocytosis (M) Present; Poikilocytosis (M) Present
[2021-01-29] MEDS: LEVOFLOXACIN 500 MG TAB PO SCH (12:07)
--- NOTE | 2021-01-29 15:24 | P.PN ---
Subjective Progress Note Date: 01/29/21 Principal diagnosis: Day two of Induction with Chemotherapy for AML Hemoglobin 7.3, platelets 12K. No fevers, s/s infection or bleedign. Objective - Vital Signs Vital signs: Vital Signs Temp 98.4 F 01/29/21 12:00 Pulse 78 01/29/21 12:00 Resp 18 01/29/21 12:00 BP 130/81 01/29/21 12:00 Pulse Ox 100 01/29/21 12:00 Intake & Output 01/28/21 01/29/21 01/29/21 18:59 06:59 18:59 Intake Total 1274 360 Balance 1274 360 Intake: Intake, IV Titration 1000 Amount Sodium Chloride 0.9% 1, 1000 000 ml @ 125 mls/hr IV . Q8H [facility] Rx#:[id number] Oral 360 Blood Product 274 Platelet Pheresis Pas 274 Psoralen Unit [id number] - Exam - Constitutional General appearance: average body habitus, cooperative, no acute distress - EENT abscess tooth Eyes: anicteric sclerae, EOMI ENT: no hard of hearing, hearing grossly normal, no NA/AT, normal oropharynx, no other, no pharyngeal erythema, no thrush, no tonsillar exudates, no tonsillar swelling - Neck Neck: no lymphadenopathy, normal ROM - Respiratory Respiratory: bilateral: CTA - Cardiovascular Rhythm: regular Heart sounds: normal: S1, S2 Abnormal Heart Sounds: no systolic murmur, no diastolic murmur, no rub, no S3 Gallop, no S4 Gallop, no click, no other leg Peripheral Edema: bilateral: None - Gastrointestinal General gastrointestinal: no absent bowel sounds, no decreased bowel sounds, no distended, no hepatomegaly, no hyperactive bowel sounds, normal bowel sounds, no organomegaly, no rigid, no scaphoid, soft, no splenomegaly, no tenderness, no umbilical hernia, no ventral hernia - Integumentary Integumentary: normal, normal turgor - Neurologic Neurologic: CNII-XII intact - Musculoskeletal Musculoskeletal: strength equal bilaterally - Psychiatric Psychiatric: A&O x's 3, appropriate affect, intact judgment & insight - Labs CBC & Chem 7: 01/29/21 05:10 01/29/21 05:10 Labs: Abnormal Lab Results - Last 24 Hours (Table) 01/29/21 01/29/21 Range/Units 05:10 05:10 WBC 1.4 L* (3.8-10.6) k/uL RBC 2.17 L (4.30-5.90) m/uL Hgb 7.3 L (13.0-17.5) gm/dL Hct 22.6 L (39.0-53.0) % MCV 104.2 H (80.0-100.0) fL RDW 20.2 H (11.5-15.5) % Plt Count 12 L* (150-450) k/uL Blast Cells % 14 H* % Neutrophils # (Manual) 1.00 L (1.3-7.7) k/uL Lymphocytes # (Manual) 0.17 L (1.0-4.8) k/uL Blast Cells # (Man) 0.20 H (0) k/uL Nucleated RBCs 10 H (0-0) /100 WBC Macrocytosis Marked A Chloride 108 H (98-107) mmol/L Creatinine 0.55 L (0.66-1.25) mg/dL Glucose 126 H (74-99) mg/dL Total Protein 5.9 L (6.3-8.2) g/dL Assessment and Plan Plan: Thrombosis Risk Factor Assmnt - DVT/VTE Prophylaxis DVT/VTE Prophylaxis: Contraindicated - See note (Platelets are 15,000) - Choose All That Apply Any of the Below Risk Factors Present?: Yes Each Factor Represents 1 point: Obesity (BMI >25) Other Risk Factors: Yes Each Risk Factor Represents 2 Points: Malignancy Other congenital or acquired thrombophilia - If yes, enter type in comment: No Thrombosis Risk Factor Assessment Total Risk Factor Score: 3 Thrombosis Risk Factor Assessment Level: Moderate Risk Assessment and Plan: AML (acute myeloid leukemia) - New diagnosis, still pending cytology. - Dr. Gresham reviewed the pathology, treatment recommendations as well as the follow-up plan. Risks versus benefit. Prognosis. F/U plans. - Continue with Day 2 of 7+3 induction chemotherapy regimen. - Status Post Picc Line Activity as tolerated, mandatory ambulation 4 times a day Supportive medications ordered. CBC and CMP monitoring. Uric acid and phos daily. Elitek will be ordered if needed for TLS. Current Visit: Yes Status: Acute Priority: High Code(s): C92.00 - ACUTE MYELOBLASTIC LEUKEMIA, NOT HAVING ACHIEVED REMISSION SNOMED Code(s): 88907777 Tooth abscess Levaquin 500 mg by mouth daily added Current Visit: Yes Status: Acute Priority: High Code(s): K04.7 - PERIAPICAL ABSCESS WITHOUT SINUS SNOMED Code(s): 977469824 Plan: - COnitnue on Induction Chemo - COntinue daily labs - Supportive care - PRN Irradiated transfusions prn Doctor attests: I performed a history and physical examination of this patient, developed impression and plan of care. Discussed with dictator. I agree with dictators note, documented as a scribe.
[2021-01-29] MEDS: FAMOTIDINE 20 MG/2 ML VIAL IV SCH (16:37)
[2021-01-29] MEDS: DEXAMETHASONE SOD PHOSPHATE 10 MG/ML 1 ML VIAL IV SCH (16:39)
[2021-01-29] MEDS: ONDANSETRON 16 MG in SODIUM CHLORIDE 0.9% 50 ML IVPB SCH (16:41)
[2021-01-29] MEDS: SODIUM CHLORIDE 0.9% IV SCH (17:10)
[2021-01-29] MEDS: CYTARABINE IV SCH (17:10)
[2021-01-30] MEDS: SODIUM CHLORIDE 0.9% 1,000 ML IV SCH ×3 (00:42→17:41)
[2021-01-30] MEDS: SALT AND SODA MOUTHWASH 1,000 ML PO SCH ×6 (00:42→23:26)
[2021-01-30 04:40] LABS: Anisocytosis Moderate; HCT 22.2 % (39.0-53.0); Hypochromasia Marked; MCH 32.1 pg (25.0-35.0); MCHC 31.2 g/dL (31.0-37.0); MCV 103.1 fL (80.0-100.0); Macrocytosis Marked; Mean Platelet Volume 6.9; Poikilocytosis Slight; RBC 2.15 m/uL (4.30-5.90); RDW 20.1 % (11.5-15.5)
[2021-01-30 04:43] LABS: ALT 16 U/L (4-49); AST 19 U/L (17-59); African American GFR (CKD) >90 (>60 ml/min/1.73 sqM); Albumin 3.5 g/dL (3.5-5.0); Albumin/Globulin Ratio 1.6; Alkaline Phosphatase 41 U/L (38-126); Anion Gap 5 mmol/L; Blood Urea Nitrogen 15 mg/dL (9-20); Calcium 8.9 mg/dL (8.4-10.2); Carbon Dioxide 25 mmol/L (22-30); Chloride 108 mmol/L (98-107); Globulin 2.2 g/dL; Glucose 127 mg/dL (74-99); Non-African American GFR(CKD) >90 (>60 ml/min/1.73 sqM); Phosphorus 4.2 mg/dL (2.5-4.5); Potassium 4.3 mmol/L (3.5-5.1); Sodium 138 mmol/L (137-145); Total Bilirubin 0.6 mg/dL (0.2-1.3); Total Protein 5.7 g/dL (6.3-8.2); Uric Acid 4.1 mg/dL (3.5-8.5)
[2021-01-30 04:49] LABS: HGB 6.9 gm/dL (13.0-17.5); Platelet Count 11 k/uL (150-450); WBC 0.7 k/uL (3.8-10.6)
[2021-01-30] MEDS: LEVOFLOXACIN 500 MG TAB PO SCH (11:29)
--- NOTE | 2021-01-30 14:27 | P.PN ---
Subjective Progress Note Date: 01/30/21 Principal diagnosis: Day two of Induction with Chemotherapy for AML No acute complaints, tolerating chemo well. Hemoglobin 6.9 transfusion order placed Objective - Vital Signs Vital signs: Vital Signs Temp 98 F 01/30/21 12:02 Pulse 78 01/30/21 12:02 Resp 16 01/30/21 12:02 BP 151/85 01/30/21 12:02 Pulse Ox 100 01/30/21 11:22 Intake & Output 01/29/21 01/30/21 01/30/21 18:59 06:59 18:59 Intake Total 1766 3510 0 Balance 1766 3510 0 Intake: Intake, IV Titration 1765 1740 Amount Cytarabine 400 mg In 216 240 Sodium Chloride 0.9% 500 ml 500 ml @ 21.667 mls/hr IV Q24H [facility] Rx#: [id number] Ondansetron 16 mg In 50 Sodium Chloride 0.9% 50 ml @ 232 mls/hr IVPB Q24H [facility] Rx#:[id number] Sodium Chloride 0.9% 1, 1500 1500 000 ml @ 125 mls/hr IV . Q8H [facility] Rx#:[id number] Oral 1770 Blood Product 0 Rc Irr As1 Unit 0 [id number] Other: # Voids 5 1 - Exam - Constitutional General appearance: average body habitus, cooperative, no acute distress - EENT abscess tooth Eyes: anicteric sclerae, EOMI ENT: no hard of hearing, hearing grossly normal, no NA/AT, normal oropharynx, no other, no pharyngeal erythema, no thrush, no tonsillar exudates, no tonsillar swelling - Neck Neck: no lymphadenopathy, normal ROM - Respiratory Respiratory: bilateral: CTA - Cardiovascular Rhythm: regular Heart sounds: normal: S1, S2 Abnormal Heart Sounds: no systolic murmur, no diastolic murmur, no rub, no S3 Gallop, no S4 Gallop, no click, no other leg Peripheral Edema: bilateral: None - Gastrointestinal General gastrointestinal: no absent bowel sounds, no decreased bowel sounds, no distended, no hepatomegaly, no hyperactive bowel sounds, normal bowel sounds, no organomegaly, no rigid, no scaphoid, soft, no splenomegaly, no tenderness, no umbilical hernia, no ventral hernia - Integumentary Integumentary: normal, normal turgor - Neurologic Neurologic: CNII-XII intact - Musculoskeletal Musculoskeletal: strength equal bilaterally - Psychiatric Psychiatric: A&O x's 3, appropriate affect, intact judgment & insight - Labs CBC & Chem 7: 01/30/21 03:47 01/30/21 03:47 Labs: Abnormal Lab Results - Last 24 Hours (Table) 01/27/21 01/30/21 01/30/21 Range/Units 09:46 03:47 03:47 WBC 0.7 L* (3.8-10.6) k/uL RBC 2.15 L (4.30-5.90) m/uL Hgb 6.9 L* (13.0-17.5) gm/dL Hct 22.2 L (39.0-53.0) % MCV 103.1 H (80.0-100.0) fL RDW 20.1 H (11.5-15.5) % Plt Count 11 L* (150-450) k/uL Macrocytosis Marked A Chloride 108 H (98-107) mmol/L Creatinine 0.59 L (0.66-1.25) mg/dL Glucose 127 H (74-99) mg/dL Total Protein 5.7 L (6.3-8.2) g/dL Crossmatch See Detail Assessment and Plan Plan: Thrombosis Risk Factor Assmnt - DVT/VTE Prophylaxis DVT/VTE Prophylaxis: Contraindicated - See note (Platelets are 15,000) - Choose All That Apply Any of the Below Risk Factors Present?: Yes Each Factor Represents 1 point: Obesity (BMI >25) Other Risk Factors: Yes Each Risk Factor Represents 2 Points: Malignancy Other congenital or acquired thrombophilia - If yes, enter type in comment: No Thrombosis Risk Factor Assessment Total Risk Factor Score: 3 Thrombosis Risk Factor Assessment Level: Moderate Risk Assessment and Plan: AML (acute myeloid leukemia) - New diagnosis, still pending cytology. - Dr. Gresham reviewed the pathology, treatment recommendations as well as the follow-up plan. Risks versus benefit. Prognosis. F/U plans. - Continue with Day 2 of 7+3 induction chemotherapy regimen. - Status Post Picc Line Activity as tolerated, mandatory ambulation 4 times a day Supportive medications ordered. CBC and CMP monitoring. Uric acid and phos daily. Elitek will be ordered if needed for TLS. Current Visit: Yes Status: Acute Priority: High Code(s): C92.00 - ACUTE MYELOBLASTIC LEUKEMIA, NOT HAVING ACHIEVED REMISSION SNOMED Code(s): 32010337 Tooth abscess Levaquin 500 mg by mouth daily added Current Visit: Yes Status: Acute Priority: High Code(s): K04.7 - PERIAPICAL ABSCESS WITHOUT SINUS SNOMED Code(s): 381503851 Plan: - One unit of PRBC irradiated today - Acyclovir, Nystatin and Levaquin to continue Doctor attests: I performed a history and physical examination of this patient, developed impression and plan of care. Discussed with dictator. I agree with dictators note, documented as a scribe.
[2021-01-30] MEDS: NYSTATIN 100,000 UNIT/ML SUSP 500,000 UNIT/5 ML CUP PO SCH ×2 (17:14→21:04)
[2021-01-30] MEDS: FAMOTIDINE 20 MG/2 ML VIAL IV SCH (17:36)
[2021-01-30] MEDS: DEXAMETHASONE SOD PHOSPHATE 10 MG/ML 1 ML VIAL IV SCH (17:38)
[2021-01-30] MEDS: ONDANSETRON 16 MG in SODIUM CHLORIDE 0.9% 50 ML IVPB SCH (17:41)
[2021-01-30] MEDS: SODIUM CHLORIDE 0.9% IV SCH (18:03)
[2021-01-30] MEDS: CYTARABINE IV SCH (18:03)
[2021-01-30] MEDS: ACYCLOVIR 200 MG CAP PO SCH (20:01)
[2021-01-31] MEDS: SODIUM CHLORIDE 0.9% 1,000 ML IV SCH ×3 (01:34→17:17)
[2021-01-31] MEDS: SALT AND SODA MOUTHWASH 1,000 ML PO SCH ×5 (04:50→23:59)
[2021-01-31 06:37] LABS: Anisocytosis Slight; HCT 21.4 % (39.0-53.0); HGB 7.2 gm/dL (13.0-17.5); Hypochromasia Moderate; MCH 33.4 pg (25.0-35.0); MCHC 33.4 g/dL (31.0-37.0); MCV 99.7 fL (80.0-100.0); Macrocytosis Moderate; Mean Platelet Volume 6.3; Poikilocytosis Moderate; RBC 2.15 m/uL (4.30-5.90)
[2021-01-31 06:47] LABS: Platelet Count 9 k/uL (150-450); WBC 0.6 k/uL (3.8-10.6)
[2021-01-31 07:00] LABS: ALT 16 U/L (4-49); AST 18 U/L (17-59); African American GFR (CKD) >90 (>60 ml/min/1.73 sqM); Albumin 3.3 g/dL (3.5-5.0); Albumin/Globulin Ratio 1.4; Alkaline Phosphatase 37 U/L (38-126); Anion Gap 4 mmol/L; Blood Urea Nitrogen 14 mg/dL (9-20); Calcium 9.1 mg/dL (8.4-10.2); Carbon Dioxide 27 mmol/L (22-30); Chloride 108 mmol/L (98-107); Globulin 2.4 g/dL; Glucose 114 mg/dL (74-99); Non-African American GFR(CKD) >90 (>60 ml/min/1.73 sqM); Phosphorus 4.3 mg/dL (2.5-4.5); Potassium 4.2 mmol/L (3.5-5.1); Sodium 139 mmol/L (137-145); Total Bilirubin 0.9 mg/dL (0.2-1.3); Total Protein 5.7 g/dL (6.3-8.2); Uric Acid 3.5 mg/dL (3.5-8.5)
[2021-01-31 07:16] LABS: Anisocytosis (M) Present
[2021-01-31] MEDS: ACYCLOVIR 200 MG CAP PO SCH ×2 (07:52→21:12)
[2021-01-31] MEDS: NYSTATIN 100,000 UNIT/ML SUSP 500,000 UNIT/5 ML CUP PO SCH ×4 (07:53→21:12)
[2021-01-31 11:16] VITALS: BMI 31.9
[2021-01-31] MEDS: LEVOFLOXACIN 500 MG TAB PO SCH (11:23)
[2021-01-31 16:23] LABS: Platelet Count 18 k/uL (150-450)
[2021-01-31] MEDS: ONDANSETRON 16 MG in SODIUM CHLORIDE 0.9% 50 ML IVPB SCH (17:17)
[2021-01-31] MEDS: DEXAMETHASONE SOD PHOSPHATE 10 MG/ML 1 ML VIAL IV SCH (17:17)
[2021-01-31] MEDS: FAMOTIDINE 20 MG/2 ML VIAL IV SCH (17:17)
[2021-01-31] MEDS ORDERED: ACETAMINOPHEN TAB 325 MG TAB PO PRN (18:26)
--- NOTE | 2021-01-31 18:38 | P.PN ---
Subjective Progress Note Date: 01/31/21 Principal diagnosis: Day two of Induction with Chemotherapy for AML Afebrile, platelets 9K, One unit of PLT ordered (irr) Objective - Vital Signs Vital signs: Vital Signs Temp 98.1 F 01/31/21 04:00 Pulse 62 01/31/21 04:00 Resp 18 01/31/21 04:00 BP 105/55 01/31/21 04:00 Pulse Ox 98 01/31/21 04:00 Intake & Output 01/30/21 01/31/21 01/31/21 18:59 06:59 18:59 Intake Total 2119 236 Balance 2119 2360 Intake: Intake, IV Titration 1810 1760 Amount Cytarabine 400 mg In 260 260 Sodium Chloride 0.9% 500 ml 500 ml @ 21.667 mls/hr IV Q24H [facility] Rx#: [id number] Ondansetron 16 mg In 50 Sodium Chloride 0.9% 50 ml @ 232 mls/hr IVPB Q24H [facility] Rx#:[id number] Sodium Chloride 0.9% 1, 1500 1500 000 ml @ 125 mls/hr IV . Q8H [facility] Rx#:[id number] Oral 600 Blood Product 310 Rc Irr As1 Unit 310 [id number] Other: Voiding Method Toilet # Voids 4 6 - Exam - Constitutional General appearance: average body habitus, cooperative, no acute distress - EENT abscess tooth Eyes: anicteric sclerae, EOMI ENT: no hard of hearing, hearing grossly normal, no NA/AT, normal oropharynx, no other, no pharyngeal erythema, no thrush, no tonsillar exudates, no tonsillar swelling - Neck Neck: no lymphadenopathy, normal ROM - Respiratory Respiratory: bilateral: CTA - Cardiovascular Rhythm: regular Heart sounds: normal: S1, S2 Abnormal Heart Sounds: no systolic murmur, no diastolic murmur, no rub, no S3 Gallop, no S4 Gallop, no click, no other leg Peripheral Edema: bilateral: None - Gastrointestinal General gastrointestinal: no absent bowel sounds, no decreased bowel sounds, no distended, no hepatomegaly, no hyperactive bowel sounds, normal bowel sounds, no organomegaly, no rigid, no scaphoid, soft, no splenomegaly, no tenderness, no umbilical hernia, no ventral hernia - Integumentary Integumentary: normal, normal turgor - Neurologic Neurologic: CNII-XII intact - Musculoskeletal Musculoskeletal: strength equal bilaterally - Psychiatric Psychiatric: A&O x's 3, appropriate affect, intact judgment & insight - Labs CBC & Chem 7: 01/31/21 15:36 01/31/21 05:41 Labs: Abnormal Lab Results - Last 24 Hours (Table) 01/27/21 01/31/21 01/31/21 Range/Units 09:46 05:41 05:41 WBC 0.6 L* (3.8-10.6) k/uL RBC 2.15 L (4.30-5.90) m/uL Hgb 7.2 L (13.0-17.5) gm/dL Hct 21.4 L (39.0-53.0) % RDW 19.0 H (11.5-15.5) % Plt Count 9 L* (150-450) k/uL Chloride 108 H (98-107) mmol/L Creatinine 0.53 L (0.66-1.25) mg/dL Glucose 114 H (74-99) mg/dL Alkaline Phosphatase 37 L (38-126) U/L Total Protein 5.7 L (6.3-8.2) g/dL Albumin 3.3 L (3.5-5.0) g/dL Crossmatch See Detail Assessment and Plan Plan: Thrombosis Risk Factor Assmnt - DVT/VTE Prophylaxis DVT/VTE Prophylaxis: Contraindicated - See note (Platelets are 15,000) - Choose All That Apply Any of the Below Risk Factors Present?: Yes Each Factor Represents 1 point: Obesity (BMI >25) Other Risk Factors: Yes Each Risk Factor Represents 2 Points: Malignancy Other congenital or acquired thrombophilia - If yes, enter type in comment: No Thrombosis Risk Factor Assessment Total Risk Factor Score: 3 Thrombosis Risk Factor Assessment Level: Moderate Risk Assessment and Plan: AML (acute myeloid leukemia) - New diagnosis, still pending cytology. - Dr. Gresham reviewed the pathology, treatment recommendations as well as the follow-up plan. Risks versus benefit. Prognosis. F/U plans. - Continue with Day 2 of 7+3 induction chemotherapy regimen. - Status Post Picc Line Activity as tolerated, mandatory ambulation 4 times a day Supportive medications ordered. CBC and CMP monitoring. Uric acid and phos daily. Elitek will be ordered if needed for TLS. Current Visit: Yes Status: Acute Priority: High Code(s): C92.00 - ACUTE MYELOBLASTIC LEUKEMIA, NOT HAVING ACHIEVED REMISSION SNOMED Code(s): 29732527 Tooth abscess Levaquin 500 mg by mouth daily added Current Visit: Yes Status: Acute Priority: High Code(s): K04.7 - PERIAPICAL ABSCESS WITHOUT SINUS SNOMED Code(s): 586199310 Plan: - One unit of PRBC irradiated today - Acyclovir, Nystatin and Levaquin to continue - One hour post PLatelet count to assess for platelet response
[2021-01-31] MEDS: CYTARABINE IV SCH (20:05)
[2021-01-31] MEDS: SODIUM CHLORIDE 0.9% IV SCH (20:05)
[2021-02-01] MEDS: SODIUM CHLORIDE 0.9% 1,000 ML IV SCH ×4 (03:41→19:34)
[2021-02-01] MEDS: SALT AND SODA MOUTHWASH 1,000 ML PO SCH ×5 (05:59→23:51)
[2021-02-01 07:12] LABS: ALT 17 U/L (4-49); AST 18 U/L (17-59); African American GFR (CKD) >90 (>60 ml/min/1.73 sqM); Albumin 3.6 g/dL (3.5-5.0); Albumin/Globulin Ratio 1.6; Alkaline Phosphatase 38 U/L (38-126); Anion Gap 4 mmol/L; Blood Urea Nitrogen 14 mg/dL (9-20); Carbon Dioxide 30 mmol/L (22-30); Chloride 107 mmol/L (98-107); Globulin 2.3 g/dL; Glucose 107 mg/dL (74-99); Non-African American GFR(CKD) >90 (>60 ml/min/1.73 sqM); Phosphorus 4.1 mg/dL (2.5-4.5); Potassium 4.1 mmol/L (3.5-5.1); Sodium 141 mmol/L (137-145); Total Bilirubin 0.9 mg/dL (0.2-1.3); Total Protein 5.9 g/dL (6.3-8.2); Uric Acid 3.1 mg/dL (3.5-8.5)
[2021-02-01 08:20] LABS: Anisocytosis Slight; HCT 21.9 % (39.0-53.0); HGB 7.1 gm/dL (13.0-17.5); Hypochromasia Marked; MCH 32.6 pg (25.0-35.0); MCHC 32.5 g/dL (31.0-37.0); MCV 100.3 fL (80.0-100.0); Macrocytosis Moderate; Mean Platelet Volume 7.7; Poikilocytosis Slight; RBC 2.18 m/uL (4.30-5.90); RDW 18.6 % (11.5-15.5)
[2021-02-01 08:27] LABS: WBC 0.6 k/uL (3.8-10.6)
[2021-02-01 08:29] LABS: Platelet Count 11 k/uL (150-450)
[2021-02-01] MEDS: ACYCLOVIR 200 MG CAP PO SCH ×2 (09:02→21:02)
[2021-02-01] MEDS: NYSTATIN 100,000 UNIT/ML SUSP 500,000 UNIT/5 ML CUP PO SCH ×4 (09:03→21:02)
[2021-02-01] MEDS: LEVOFLOXACIN 500 MG TAB PO SCH (11:22)
[2021-02-01 20:22] LABS: Glucose,Whole Blood 115 mg/dL (75-99)
[2021-02-02] MEDS: SALT AND SODA MOUTHWASH 1,000 ML PO SCH ×5 (05:42→23:29)
[2021-02-02 07:29] LABS: Anisocytosis Slight; Hypochromasia Moderate; MCH 33.3 pg (25.0-35.0); MCHC 33.4 g/dL (31.0-37.0); MCV 99.7 fL (80.0-100.0); Macrocytosis Slight; Mean Platelet Volume 7.7; Poikilocytosis Slight; RBC 1.98 m/uL (4.30-5.90); RDW 17.9 % (11.5-15.5)
[2021-02-02 07:36] LABS: HCT 19.8 % (39.0-53.0); HGB 6.6 gm/dL (13.0-17.5); WBC 0.9 k/uL (3.8-10.6)
[2021-02-02 07:37] LABS: Platelet Count 7 k/uL (150-450)
[2021-02-02 07:58] LABS: ALT 16 U/L (4-49); AST 17 U/L (17-59); African American GFR (CKD) >90 (>60 ml/min/1.73 sqM); Albumin 3.1 g/dL (3.5-5.0); Albumin/Globulin Ratio 1.5; Alkaline Phosphatase 37 U/L (38-126); Anion Gap 3 mmol/L; Blood Urea Nitrogen 17 mg/dL (9-20); Calcium 8.2 mg/dL (8.4-10.2); Carbon Dioxide 27 mmol/L (22-30); Chloride 112 mmol/L (98-107); Globulin 2.1 g/dL; Glucose 87 mg/dL (74-99); LDH 546 U/L (313-618); Magnesium 1.9 mg/dL (1.6-2.3); Non-African American GFR(CKD) >90 (>60 ml/min/1.73 sqM); Phosphorus 3.8 mg/dL (2.5-4.5); Potassium 4.2 mmol/L (3.5-5.1); Sodium 142 mmol/L (137-145); Total Bilirubin 0.7 mg/dL (0.2-1.3); Total Protein 5.2 g/dL (6.3-8.2); Uric Acid 3.6 mg/dL (3.5-8.5)
[2021-02-02] MEDS: ACYCLOVIR 200 MG CAP PO SCH ×2 (08:06→21:13)
[2021-02-02] MEDS: NYSTATIN 100,000 UNIT/ML SUSP 500,000 UNIT/5 ML CUP PO SCH ×4 (08:06→21:15)
[2021-02-02 09:41] LABS: Spherocytes Present
[2021-02-02] MEDS: SODIUM CHLORIDE 0.9% 1,000 ML IV SCH ×2 (12:07→21:19)
[2021-02-02] MEDS: LEVOFLOXACIN 500 MG TAB PO SCH (12:07)
--- NOTE | 2021-02-02 14:06 | P.PN ---
Subjective Progress Note Date: 02/01/21 Principal diagnosis: Day two of Induction with Chemotherapy for AML Still tolerating well, a little flushed in face today, no thrush, diarrhea or constipation, no nausea or vomtiing Objective - Vital Signs Vital signs: Vital Signs Temp 98.4 F 02/01/21 11:26 Pulse 60 02/01/21 11:26 Resp 20 02/01/21 11:26 BP 124/73 02/01/21 11:26 Pulse Ox 100 02/01/21 11:26 Intake & Output 01/31/21 02/01/21 02/01/21 18:59 06:59 18:59 Intake Total 2184.2 2360 Balance 2184.2 2360 Weight 106.9 kg Intake: Intake, IV Titration 1809.2 1760 Amount Cytarabine 400 mg In 259.2 260 Sodium Chloride 0.9% 500 ml 500 ml @ 21.667 mls/hr IV Q24H [facility] Rx#: [id number] Ondansetron 16 mg In 50 Sodium Chloride 0.9% 50 ml @ 232 mls/hr IVPB Q24H [facility] Rx#:[id number] Sodium Chloride 0.9% 1, 1500 1500 000 ml @ 125 mls/hr IV . Q8H [facility] Rx#:[id number] Oral 600 Blood Product 375 Platelet Pheresis Pas 375 Psoralen Unit [id number] Other: Voiding Method Toilet # Voids 4 - Exam - Constitutional General appearance: average body habitus, cooperative, no acute distress - EENT abscess tooth Eyes: anicteric sclerae, EOMI ENT: no hard of hearing, hearing grossly normal, no NA/AT, normal oropharynx, no other, no pharyngeal erythema, no thrush, no tonsillar exudates, no tonsillar swelling - Neck Neck: no lymphadenopathy, normal ROM - Respiratory Respiratory: bilateral: CTA - Cardiovascular Rhythm: regular Heart sounds: normal: S1, S2 Abnormal Heart Sounds: no systolic murmur, no diastolic murmur, no rub, no S3 Gallop, no S4 Gallop, no click, no other leg Peripheral Edema: bilateral: None - Gastrointestinal General gastrointestinal: no absent bowel sounds, no decreased bowel sounds, no distended, no hepatomegaly, no hyperactive bowel sounds, normal bowel sounds, no organomegaly, no rigid, no scaphoid, soft, no splenomegaly, no tenderness, no umbilical hernia, no ventral hernia - Integumentary Integumentary: normal, normal turgor - Neurologic Neurologic: CNII-XII intact - Musculoskeletal Musculoskeletal: strength equal bilaterally - Psychiatric Psychiatric: A&O x's 3, appropriate affect, intact judgment & insight - Labs CBC & Chem 7: 02/02/21 07:12 02/02/21 07:12 Labs: Abnormal Lab Results - Last 24 Hours (Table) 01/31/21 02/01/21 02/01/21 Range/Units 15:36 06:07 06:07 WBC 0.6 L* (3.8-10.6) k/uL RBC 2.18 L (4.30-5.90) m/uL Hgb 7.1 L (13.0-17.5) gm/dL Hct 21.9 L (39.0-53.0) % MCV 100.3 H (80.0-100.0) fL RDW 18.6 H (11.5-15.5) % Plt Count 18 L* D 11 L* (150-450) k/uL Creatinine 0.57 L (0.66-1.25) mg/dL Glucose 107 H (74-99) mg/dL Uric Acid 3.1 L (3.5-8.5) mg/dL Total Protein 5.9 L (6.3-8.2) g/dL Assessment and Plan Plan: Thrombosis Risk Factor Assmnt - DVT/VTE Prophylaxis DVT/VTE Prophylaxis: Contraindicated - See note (Platelets are 15,000) - Choose All That Apply Any of the Below Risk Factors Present?: Yes Each Factor Represents 1 point: Obesity (BMI >25) Other Risk Factors: Yes Each Risk Factor Represents 2 Points: Malignancy Other congenital or acquired thrombophilia - If yes, enter type in comment: No Thrombosis Risk Factor Assessment Total Risk Factor Score: 3 Thrombosis Risk Factor Assessment Level: Moderate Risk Assessment and Plan: AML (acute myeloid leukemia) - New diagnosis, still pending cytology. - Dr. Gresham reviewed the pathology, treatment recommendations as well as the follow-up plan. Risks versus benefit. Prognosis. F/U plans. - Continue with Day 2 of 7+3 induction chemotherapy regimen. - Status Post Picc Line Activity as tolerated, mandatory ambulation 4 times a day Supportive medications ordered. CBC and CMP monitoring. Uric acid and phos daily. Elitek will be ordered if needed for TLS. Current Visit: Yes Status: Acute Priority: High Code(s): C92.00 - ACUTE MYELOBLASTIC LEUKEMIA, NOT HAVING ACHIEVED REMISSION SNOMED Code(s): 69941891 Tooth abscess Levaquin 500 mg by mouth daily added Current Visit: Yes Status: Acute Priority: High Code(s): K04.7 - PERIAPICAL ABSCESS WITHOUT SINUS SNOMED Code(s): 624399184 Plan: - One unit of PRBC irradiated today - Acyclovir, Nystatin and Levaquin to continue - One hour post PLatelet count to assess for platelet response
--- NOTE | 2021-02-02 14:24 | P.PN ---
Subjective Progress Note Date: 02/02/21 Principal diagnosis: Day two of Induction with Chemotherapy for AML Spoke to patient's nurse Angelica early this AM, patient had His picc line was being changed and he became pale and loss consciousness. I do not see event notes on my profile (however is charted) to provide full desciption of event. However, Platelet transfusion, PRBC transfusion, Chest Xray, Blood Cultures (maribell e and peripheral), B12 Folate, Iron (to draw from 01/30 labs), Echocardiogram, and EKG have been ordered to full assess for other causes. This likely was related to severe anemia but with a complex diagnosis with curative chemotherapy treatment plan will need to ensure. Patient and at bedside. He is feeling better after blood. Objective - Vital Signs Vital signs: Vital Signs Temp 98.2 F 02/02/21 13:50 Pulse 92 02/02/21 13:49 Resp 18 02/02/21 13:50 BP 134/68 02/02/21 13:50 Pulse Ox 98 02/02/21 12:39 Intake & Output 02/01/21 02/02/21 02/02/21 18:59 06:59 18:59 Intake Total 240 2180 310 Output Total 600 Balance -360 2180 310 Intake: Intake, IV Titration 1580 Amount Cytarabine 400 mg In 80 Sodium Chloride 0.9% 500 ml 500 ml @ 21.667 mls/hr IV Q24H [facility] Rx#: [id number] Sodium Chloride 0.9% 1, 1500 000 ml @ 125 mls/hr IV . Q8H [facility] Rx#:[id number] Oral 240 600 Blood Product 310 Rc Irr As1 Unit 310 [id number] Output: Urine 600 Other: Voiding Method Toilet Toilet # Voids 5 - Exam - Constitutional General appearance: average body habitus, cooperative, no acute distress - EENT abscess tooth Eyes: anicteric sclerae, EOMI ENT: no hard of hearing, hearing grossly normal, no NA/AT, normal oropharynx, no other, no pharyngeal erythema, no thrush, no tonsillar exudates, no tonsillar swelling - Neck Neck: no lymphadenopathy, normal ROM - Respiratory Respiratory: bilateral: CTA - Cardiovascular Rhythm: regular Heart sounds: normal: S1, S2 Abnormal Heart Sounds: no systolic murmur, no diastolic murmur, no rub, no S3 Gallop, no S4 Gallop, no click, no other leg Peripheral Edema: bilateral: None - Gastrointestinal General gastrointestinal: no absent bowel sounds, no decreased bowel sounds, no distended, no hepatomegaly, no hyperactive bowel sounds, normal bowel sounds, no organomegaly, no rigid, no scaphoid, soft, no splenomegaly, no tenderness, no umbilical hernia, no ventral hernia - Integumentary Integumentary: normal, normal turgor - Neurologic Neurologic: CNII-XII intact - Musculoskeletal Musculoskeletal: strength equal bilaterally - Psychiatric Psychiatric: A&O x's 3, appropriate affect, intact judgment & insight - Labs CBC & Chem 7: 02/02/21 07:12 02/02/21 07:12 Labs: Abnormal Lab Results - Last 24 Hours (Table) 02/01/21 02/02/21 02/02/21 Range/Units 20:10 07:12 07:12 WBC 0.9 L* (3.8-10.6) k/uL RBC 1.98 L (4.30-5.90) m/uL Hgb 6.6 L* (13.0-17.5) gm/dL Hct 19.8 L* (39.0-53.0) % RDW 17.9 H (11.5-15.5) % Plt Count 7 L* (150-450) k/uL Chloride 112 H (98-107) mmol/L Creatinine 0.59 L (0.66-1.25) mg/dL POC Glucose (mg/dL) 115 H (75-99) mg/dL Calcium 8.2 L (8.4-10.2) mg/dL Alkaline Phosphatase 37 L (38-126) U/L Total Protein 5.2 L (6.3-8.2) g/dL Albumin 3.1 L (3.5-5.0) g/dL Crossmatch 02/02/21 Range/Units 09:17 WBC (3.8-10.6) k/uL RBC (4.30-5.90) m/uL Hgb (13.0-17.5) gm/dL Hct (39.0-53.0) % RDW (11.5-15.5) % Plt Count (150-450) k/uL Chloride (98-107) mmol/L Creatinine (0.66-1.25) mg/dL POC Glucose (mg/dL) (75-99) mg/dL Calcium (8.4-10.2) mg/dL Alkaline Phosphatase (38-126) U/L Total Protein (6.3-8.2) g/dL Albumin (3.5-5.0) g/dL Crossmatch See Detail Assessment and Plan Plan: Thrombosis Risk Factor Assmnt - DVT/VTE Prophylaxis DVT/VTE Prophylaxis: Contraindicated - See note (Platelets are 15,000) - Choose All That Apply Any of the Below Risk Factors Present?: Yes Each Factor Represents 1 point: Obesity (BMI >25) Other Risk Factors: Yes Each Risk Factor Represents 2 Points: Malignancy Other congenital or acquired thrombophilia - If yes, enter type in comment: No Thrombosis Risk Factor Assessment Total Risk Factor Score: 3 Thrombosis Risk Factor Assessment Level: Moderate Risk Assessment and Plan: AML (acute myeloid leukemia) - New diagnosis, still pending cytology. - Dr. Gresham reviewed the pathology, treatment recommendations as well as the follow-up plan. Risks versus benefit. Prognosis. F/U plans. - Continue with Day 2 of 7+3 induction chemotherapy regimen. - Status Post Picc Line Activity as tolerated, mandatory ambulation 4 times a day Supportive medications ordered. CBC and CMP monitoring. Uric acid and phos daily. Elitek will be ordered if needed for TLS. Current Visit: Yes Status: Acute Priority: High Code(s): C92.00 - ACUTE MYELOBLASTIC LEUKEMIA, NOT HAVING ACHIEVED REMISSION SNOMED Code(s): 78523881 Tooth abscess Levaquin 500 mg by mouth daily added Current Visit: Yes Status: Acute Priority: High Code(s): K04.7 - PERIAPICAL ABSCESS WITHOUT SINUS SNOMED Code(s): 842606137 Plan: - One unit of PRBC irradiated today - Acyclovir, Nystatin and Levaquin to continue - One hour post PLatelet count to assess for platelet response - Aristeo in office on Friday - Will hold discharge today due to event below Spoke to patient's nurse Angelica early this AM, apparently patient had episode of syncope with loss of consciousness. Per RN there was a Code Blue, which was quic damir changed to A-Team as patient did have a pulse and was breathing. His hemoglobin has dropped to 6.6, platelets 7K, No obvious signs of bleeding. His picc line was being changed and he became pale and loss consciousness. I do not see event notes to provide full desciption of event. However, Platelet transfusion, PRBC transfusion, Chest Xray, Blood Cultures (line and peripheral), B12 Folate, Iron (to draw from 01/30 labs), Echocardiogram, and EKG have been ordered to full assess for other causes. This likely was related to severe anemia but with a complex diagnosis with curative chemotherapy treatment plan will need to ensure.
[2021-02-02 15:13] LABS: D-Dimer 0.9 mg/L FEU (<0.60)
[2021-02-02 15:18] LABS: Partial Thromboplastin Time 19.6 sec (22.0-30.0)
[2021-02-02 15:28] LABS: Reticulocyte % 0.1 % (0.5-2.0)
[2021-02-02 16:45] LABS: Appearance,Urine Clear (Clear); Bilirubin,Urine Negative (Negative); Blood,Urine Negative (Negative); Color,Urine Light Yellow; Glucose,Urine (UA) Negative (Negative); Ketones,Urine Negative (Negative); Leukocyte Esterase,Urine Negative (Negative); Nitrite,Urine Negative (Negative); PH, Urine 6.5 (5.0-8.0); Protein,Urine Negative (Negative); Specific Gravity,Urine 1.011 (1.001-1.035); Urobilinogen,Urine <2.0 mg/dL (<2.0)
--- NOTE | 2021-02-02 18:02 | ECHOF ---
Referral Reason:syncopal event on chemo MEASUREMENTS -------- HEIGHT: 182.9 cm WEIGHT: 106.6 kg BP: RVIDd: 2.6 cm (< 3.3) IVSd: 1.2 cm (0.6 - 1.1) LVIDd: 4.5 cm (3.9 - 5.3) LVPWd: 1.7 cm (0.6 - 1.1) IVSs: 1.5 cm LVIDs: 3.3 cm LVPWs: 1.8 cm LA Diam: 4.1 cm (2.7 - 3.8) Ao Diam: 3.1 cm (2.0 - 3.7) AV Cusp: 1.9 cm (1.5 - 2.6) LA Diam: 4.1 cm (2.7 - 3.8) MV EXCURSION: 19.523 mm (> 18.000) MV EF SLOPE: 89 mm/s (70 - 150) EPSS: 0.4 cm MV E Dmitriy: 0.65 m/s MV DecT: 185 ms MV A Dmitriy: 0.76 m/s MV E/A Ratio: 0.85 RAP: 5.00 mmHg RVSP: 17.37 mmHg FINDINGS -------- Sinus rhythm. This was a technically good study. The left ventricular size is normal. There is mild concentric left ventricular hypertrophy. Overa ll left ventricular systolic function is normal with, an EF between 55 - 60 %. The right ventricle is normal in size. The left atrium is mildly dilated. The right atrial size is normal. The aortic valve is trileaflet, and appears structurally normal. No aortic stenosis or regurgitation. The mitral valve is normal. Mild mitral regurgitation is present. The tricuspid valve appears structurally normal. Mild tricuspid regurgitation present. Right vent ricular systolic pressure is normal at < 35 mmHg. There is no pulmonic regurgitation present. The aortic root size is normal. There is no pericardial effusion. CONCLUSIONS -------- 1. There is mild concentric left ventricular hypertrophy. 2. Overall left ventricular systolic function is normal with, an EF between 55 - 60 %. 3. The left atrium is mildly dilated. 4. The aortic valve is trileaflet, and appears structurally normal. No aortic stenosis or regurgitati on. 5. Mild mitral regurgitation is present. 6. Mild tricuspid regurgitation present. 7. There is no pericardial effusion. PATIENT ACCOUNT SPECIALIST: Carisa Jackson RDCS
--- NOTE | 2021-02-02 18:41 | XR ---
EXAMINATION TYPE: XR chest 2V DATE OF EXAM: 02/02/2021 COMPARISON: NONE HISTORY: Syncope TECHNIQUE: 2 views FINDINGS: Heart and mediastinum are normal. Lungs are clear. Diaphragm is normal. Bony thorax appears intact. IMPRESSION: Normal chest.
[2021-02-02] MEDS ORDERED: diphenhydrAMINE 50 MG/ML 1 ML VIAL IVP ONE (21:53)
[2021-02-02 22:27] LABS: % Iron Saturation 84.13 (15.00-50.00)
[2021-02-02 22:37] LABS: Folate, Serum 5.7 ng/mL
[2021-02-02 22:42] LABS: Ferritin 770.5 ng/mL (22.0-322.0)
[2021-02-02 23:28] LABS: INR 0.9 (<1.2); Prothrombin Time 10.1 sec (9.0-12.0)
--- NOTE | 2021-02-02 23:33 | US ---
EXAMINATION TYPE: US venous doppler duplex UE LT DATE OF EXAM: 02/02/2021 COMPARISON: NONE CLINICAL HISTORY: left arm swelling. left picc line, iv in left wrist SIDE PERFORMED: left Left Arm: Negative for DVT IMPRESSION: No sign of deep vein thrombosis in the left arm.
[2021-02-03] MEDS: SODIUM CHLORIDE 0.9% 1,000 ML IV SCH ×2 (01:52→08:45)
[2021-02-03 04:12] VITALS: RESP 16
[2021-02-03] MEDS: SALT AND SODA MOUTHWASH 1,000 ML PO SCH ×2 (05:38→08:42)
[2021-02-03 06:23] LABS: Anisocytosis Slight; HCT 20.7 % (39.0-53.0); HGB 7.1 gm/dL (13.0-17.5); Hypochromasia Slight; MCH 33.3 pg (25.0-35.0); MCHC 34.4 g/dL (31.0-37.0); MCV 96.7 fL (80.0-100.0); Macrocytosis Slight; Mean Platelet Volume 12.6; Poikilocytosis Moderate; RBC 2.14 m/uL (4.30-5.90); RDW 17.8 % (11.5-15.5)
[2021-02-03 06:31] LABS: ALT 15 U/L (4-49); AST 18 U/L (17-59); African American GFR (CKD) >90 (>60 ml/min/1.73 sqM); Albumin 2.9 g/dL (3.5-5.0); Albumin/Globulin Ratio 1.4; Alkaline Phosphatase 37 U/L (38-126); Anion Gap 4 mmol/L; Blood Urea Nitrogen 14 mg/dL (9-20); Calcium 7.9 mg/dL (8.4-10.2); Carbon Dioxide 25 mmol/L (22-30); Chloride 111 mmol/L (98-107); Globulin 2.1 g/dL; Glucose 93 mg/dL (74-99); LDH 528 U/L (313-618); Magnesium 1.9 mg/dL (1.6-2.3); Non-African American GFR(CKD) >90 (>60 ml/min/1.73 sqM); Phosphorus 3.5 mg/dL (2.5-4.5); Sodium 140 mmol/L (137-145); Uric Acid 2.7 mg/dL (3.5-8.5)
[2021-02-03 06:37] LABS: WBC 0.9 k/uL (3.8-10.6)
[2021-02-03 06:38] LABS: Platelet Count 13 k/uL (150-450)
[2021-02-03] MEDS: NYSTATIN 100,000 UNIT/ML SUSP 500,000 UNIT/5 ML CUP PO SCH (08:41)
[2021-02-03] MEDS: ACYCLOVIR 200 MG CAP PO SCH (08:41)
--- NOTE | 2021-02-03 10:19 | P.PN ---
Subjective Progress Note Date: 02/03/21 Principal diagnosis: Day two of Induction with Chemotherapy for AML With John SYncopal episode , likely related to Anemia, will transfuse one unit PRBC today and he maybe discharged after. Will also supplement Folic acid, Vitamin D, and Calcium prior to discharge Objective - Vital Signs Vital signs: Vital Signs Temp 98.6 F 02/03/21 04:00 Pulse 97 02/03/21 04:00 Resp 16 02/03/21 04:00 BP 104/67 02/03/21 04:00 Pulse Ox 97 02/03/21 04:00 Intake & Output 02/02/21 02/03/21 02/03/21 18:59 06:59 18:59 Intake Total 860 1783 Balance 860 1783 Intake: Intake, IV Titration 1500 Amount Sodium Chloride 0.9% 1, 1500 000 ml @ 125 mls/hr IV . Q8H [facility] Rx#:[id number] Oral 240 Blood Product 620 283 Platelet Pheresis Pas 283 Psoralen Unit [id number] Rc Irr As1 Unit 310 [id number] Rc Irr As1 Unit 310 [id number] Other: Voiding Method Toilet Toilet # Voids 3 1 # Bowel Movements 1 - Exam - Constitutional General appearance: average body habitus, cooperative, no acute distress - EENT abscess tooth Eyes: anicteric sclerae, EOMI ENT: no hard of hearing, hearing grossly normal, no NA/AT, normal oropharynx, no other, no pharyngeal erythema, no thrush, no tonsillar exudates, no tonsillar swelling - Neck Neck: no lymphadenopathy, normal ROM - Respiratory Respiratory: bilateral: CTA - Cardiovascular Rhythm: regular Heart sounds: normal: S1, S2 Abnormal Heart Sounds: no systolic murmur, no diastolic murmur, no rub, no S3 Gallop, no S4 Gallop, no click, no other leg Peripheral Edema: bilateral: None - Gastrointestinal General gastrointestinal: no absent bowel sounds, no decreased bowel sounds, no distended, no hepatomegaly, no hyperactive bowel sounds, normal bowel sounds, no organomegaly, no rigid, no scaphoid, soft, no splenomegaly, no tenderness, no umbilical hernia, no ventral hernia - Integumentary Integumentary: normal, normal turgor - Neurologic Neurologic: CNII-XII intact - Musculoskeletal Musculoskeletal: strength equal bilaterally - Psychiatric Psychiatric: A&O x's 3, appropriate affect, intact judgment & insight - Labs CBC & Chem 7: 02/03/21 05:37 02/03/21 05:37 Labs: Abnormal Lab Results - Last 24 Hours (Table) 02/02/21 02/02/21 02/02/21 Range/Units 09:17 14:26 14:26 WBC (3.8-10.6) k/uL RBC (4.30-5.90) m/uL Hgb (13.0-17.5) gm/dL Hct (39.0-53.0) % RDW (11.5-15.5) % Plt Count (150-450) k/uL Retic Count 0.1 L (0.5-2.0) % APTT (22.0-30.0) sec D-Dimer (<0.60) mg/L FEU Chloride (98-107) mmol/L Creatinine (0.66-1.25) mg/dL Uric Acid (3.5-8.5) mg/dL Calcium (8.4-10.2) mg/dL TIBC 208 L (228-460) ug/dL % Saturation 84.13 H (15.00-50.00) Ferritin 770.5 H (22.0-322.0) ng/mL Alkaline Phosphatase (38-126) U/L Total Protein (6.3-8.2) g/dL Albumin (3.5-5.0) g/dL Vitamin D 25-Hydroxy 19.6 L (30.0-100.0) ng/mL Crossmatch See Detail 02/02/21 02/03/21 02/03/21 Range/Units 14:26 05:37 05:37 WBC 0.9 L* (3.8-10.6) k/uL RBC 2.14 L (4.30-5.90) m/uL Hgb 7.1 L (13.0-17.5) gm/dL Hct 20.7 L (39.0-53.0) % RDW 17.8 H (11.5-15.5) % Plt Count 13 L* D (150-450) k/uL Retic Count (0.5-2.0) % APTT 19.6 L (22.0-30.0) sec D-Dimer 0.90 H (<0.60) mg/L FEU Chloride 111 H (98-107) mmol/L Creatinine 0.46 L (0.66-1.25) mg/dL Uric Acid 2.7 L (3.5-8.5) mg/dL Calcium 7.9 L (8.4-10.2) mg/dL TIBC (228-460) ug/dL % Saturation (15.00-50.00) Ferritin (22.0-322.0) ng/mL Alkaline Phosphatase 37 L (38-126) U/L Total Protein 5.0 L (6.3-8.2) g/dL Albumin 2.9 L (3.5-5.0) g/dL Vitamin D 25-Hydroxy (30.0-100.0) ng/mL Crossmatch Assessment and Plan (1) Hypocalcemia Status: Acute Code(s): E83.51 - HYPOCALCEMIA SNOMED Code(s): 0037114 (2) Pancytopenia due to antineoplastic chemotherapy Status: Acute Code(s): D61.810 - ANTINEOPLASTIC CHEMOTHERAPY INDUCED PANCYTOPENIA; T45.1X5A - ADVERSE EFFECT OF ANTINEOPLASTIC AND IMMUNOSUP DRUGS, INIT SNOMED Code(s): 551754011791687 (3) Syncopal episodes Status: Acute Code(s): R55 - SYNCOPE AND COLLAPSE SNOMED Code(s): 301219209 Plan: Thrombosis Risk Factor Assmnt - DVT/VTE Prophylaxis DVT/VTE Prophylaxis: Contraindicated - See note (Platelets are 15,000) - Choose All That Apply Any of the Below Risk Factors Present?: Yes Each Factor Represents 1 point: Obesity (BMI >25) Other Risk Factors: Yes Each Risk Factor Represents 2 Points: Malignancy Other congenital or acquired thrombophilia - If yes, enter type in comment: No Thrombosis Risk Factor Assessment Total Risk Factor Score: 3 Thrombosis Risk Factor Assessment Level: Moderate Risk Assessment and Plan: AML (acute myeloid leukemia) - New diagnosis, still pending cytology. - Dr. Gresham reviewed the pathology, treatment recommendations as well as the follow-up plan. Risks versus benefit. Prognosis. F/U plans. - Continue with Day 2 of 7+3 induction chemotherapy regimen. - Status Post Picc Line Activity as tolerated, mandatory ambulation 4 times a day Supportive medications ordered. CBC and CMP monitoring. Uric acid and phos daily. Elitek will be ordered if needed for TLS. Current Visit: Yes Status: Acute Priority: High Code(s): C92.00 - ACUTE MYELOBLASTIC LEUKEMIA, NOT HAVING ACHIEVED REMISSION SNOMED Code(s): 66163473 Tooth abscess Levaquin 500 mg by mouth daily added Current Visit: Yes Status: Acute Priority: High Code(s): K04.7 - PERIAPICAL ABSCESS WITHOUT SINUS SNOMED Code(s): 382417654 Plan: - One unit of PRBC irradiated today - Acyclovir, Nystatin and Levaquin to continue - One hour post PLatelet count to assess for platelet response - Folic acid sent to pharmacy and Vitamin D3 - CBC/CMP friday with [employer], and CBc 3x a week - Monitor for recurrent syncopal episodes, likely related to symptomatic anemia: infectious and cardiac work-up neg - May benefit from PRBC transfusion less than 7.5
[2021-02-03] MEDS ORDERED: FOLIC ACID 1 MG TAB PO SCH (10:33)
[2021-02-03] MEDS ORDERED: CALCIUM GLUCONATE 2 GM in SODIUM CHLORIDE 0.9% 100 ML IVPB ONE (11:00)
[2021-02-03] MEDS: LEVOFLOXACIN 500 MG TAB PO SCH (11:02)
[2021-02-03 12:35] VITALS: TEMP 98.6
--- NOTE | 2021-02-03 14:48 | P.DS ---
Providers Date of admission: 01/25/21 08:58 Expected date of discharge: 02/03/21 Attending physician: Leif Gresham Primary care physician: Stated None Hospital Course: See Progress Note dated today Patient Condition at Discharge: Fair Plan - Discharge Summary Discharge Rx Participant: No New Discharge Prescriptions: New Acetaminophen Tab [Tylenol] 650 mg PO Q4HR PRN tab PRN Reason: Fever And/ Or Pain Acyclovir [Zovirax] 400 mg PO BID #60 cap Sennosides/Docusate Sodium [Senna Plus 8.6-50 mg Tablet] 2 each PO HS #60 tablet Ondansetron Odt [Zofran ODT] 4 mg PO Q6HR PRN #45 tab PRN Reason: Nausea Folic Acid 1 mg PO DAILY 30 Days tab Levofloxacin [Levaquin] 500 mg PO Q24H #30 tab Nystatin 100,000 Unit/ml Susp [Mycostatin Oral Susp] 500,000 unit PO QID #360 ml Cholecalciferol [Vitamin D3 (25 Mcg = 1000 Iu)] 50 mcg PO DAILY #60 tablet Folic Acid 1 mg PO DAILY #30 tablet Continue Omeprazole [PriLOSEC] 40 mg PO BID Chlorhexidine Gluconate [Peridex] 15 ml PO DAILY Discontinued metroNIDAZOLE [Flagyl] 250 mg PO QID Penicillin V Potassium [Pen Vee K] 500 mg PO QID Discharge Medication List Chlorhexidine Gluconate [Peridex] 15 ml PO DAILY 01/25/21 [History] Omeprazole [PriLOSEC] 40 mg PO BID 01/25/21 [History] Acetaminophen Tab [Tylenol] 650 mg PO Q4HR PRN tab 02/02/21 [Rx] Acyclovir [Zovirax] 400 mg PO BID #60 cap 02/02/21 [Rx] Ondansetron Odt [Zofran ODT] 4 mg PO Q6HR PRN #45 tab 02/02/21 [Rx] Sennosides/Docusate Sodium [Senna Plus 8.6-50 mg Tablet] 2 each PO HS #60 tablet 02/02/21 [Rx] Cholecalciferol [Vitamin D3 (25 Mcg = 1000 Iu)] 50 mcg PO DAILY #60 tablet 02/03/21 [Rx] Folic Acid 1 mg PO DAILY #30 tablet 02/03/21 [Rx] Folic Acid 1 mg PO DAILY 30 Days tab 02/03/21 [Rx] Levofloxacin [Levaquin] 500 mg PO Q24H #30 tab 02/03/21 [Rx] Nystatin 100,000 Unit/ml Susp [Mycostatin Oral Susp] 500,000 unit PO QID #360 ml 02/03/21 [Rx] Follow up Appointment(s)/Referral(s): Leif Gresham MD [STAFF PHYSICIAN] - 02/05/21 11:30 am (Lab encounter) Maggie Yuen NPC [Nurse Practitioner] - 02/06/21 8:30 am Patient Instructions/Handouts: Pancytopenia (DC) Activity/Diet/Wound Care/Special Instructions: Call if fever greater than 100.4, any signs of bleeding or more dizzy spells.
[2021-02-03 15:47] VITALS: BP 133/80; PULSE 94
[2021-02-04] MEDS ORDERED: CHOLECALCIFEROL 25 MCG (1000 IU) TABLET PO SCH (09:00)
[2021-02-04] MEDS ORDERED: FOLIC ACID 1 MG TAB PO SCH (09:00)
== END 2021-02-03 16:22 | disposition home or self-care (01) | DRG 837 ==
LOC: 5NMEDONC 08:58
PROVIDERS: ADMIT Internal Medicine Hematology & Oncology; ATTEND Internal Medicine Hematology & Oncology
PROC: 02HV33Z Insertion of Infusion Device into Superior Vena Cava, Percutaneous Approach (ICD-10-PCS; 2021-01-25)
PROC: B5181ZA Fluoroscopy of Superior Vena Cava using Low Osmolar Contrast, Guidance (ICD-10-PCS; 2021-01-25)
PROC: 3E0M305 Introduction of Other Antineoplastic into Peritoneal Cavity, Percutaneous Approach (ICD-10-PCS; principal; 2021-01-25 09:00)
PROC: 30233N1 Transfusion of Nonautologous Red Blood Cells into Peripheral Vein, Percutaneous Approach (ICD-10-PCS; 2021-01-27)
PROC: 30233R1 Transfusion of Nonautologous Platelets into Peripheral Vein, Percutaneous Approach (ICD-10-PCS; 2021-01-28)
DX: Z51.11 Encounter for antineoplastic chemotherapy (principal); D61.810 Antineoplastic chemotherapy induced pancytopenia; C92.00 Acute myeloblastic leukemia, not having achieved remission; K04.7 Periapical abscess without sinus; D69.59 Other secondary thrombocytopenia; E83.51 Hypocalcemia; T45.1X5A Adverse effect of antineoplastic and immunosuppressive drugs, initial encounter; Z79.2 Long term (current) use of antibiotics
CPT/HCPCS: 36573; 71046; 80053; 81003; 82306; 82607; 82728; 82746; 83540; 83550; 83615; 83735; 83921; 84100; 84443; 84550; 85025; 85045; 85049; 85379; 85384; 85610; 85730; 86850; 86900; 86901; 86920; 87040; 92950; 93005; 93306

== ENCOUNTER → 2021-02-14 | Outpatient (CLI) | payer BC, OTHER ==
--- NOTE | 2021-02-14 11:35 | CT ---
CT CHEST FOR PULMONARY EMBOLISM. EXAMINATION TYPE: CT angio chest DATE OF EXAM: 02/14/2021 INDICATION: Mid Chest discomfort and shortness of breath. CT DLP: 448.4 mGycm, Automated exposure control for dose reduction was used. CONTRAST: Patient injected with 48 mL of Isovue 370. COMPARISON: None TECHNIQUE: CT of the chest is performed on a spiral scan at 2 mm thick sections. Study is performed with intravenous contrast timed for evaluation for pulmonary embolism. This will limit additional po rtions of the evaluation. 3-D MIP images reconstructed by the technologist are reviewed on the compu ter in the coronal and sagittal planes. FINDINGS: Contrast timing is limited. No persistent filling defects are evident to suggest an acute pulmonary e mbolism. No mediastinal or hilar adenopathy enlarged by CT criteria is evident. The ascending aorta diameter at the level of the main pulmonary artery is 2.9 cm. The main pulmonary artery diameter at the bifur cation is 3.4 cm. Correlate for some pulmonary hypertension. Some reflux into the proximal inferior v tori cava is present. Lung windows are clear. Limited CT section through the upper abdomen are unremarkable. IMPRESSIONS: 1. No obvious large pulmonary emboli evident. However, contrast spine causes some limitation. Clinica l consideration for pulmonary hypertension
== END | disposition home or self-care (01) ==
LOC: RADCTMAIN 10:04
PROVIDERS: ATTEND Internal Medicine Hematology & Oncology
DX: R07.89 Other chest pain (principal); R06.02 Shortness of breath
CPT/HCPCS: 71275; Q9967

== ENCOUNTER 2021-02-15 13:50 | Observation (INO) | payer BC, OTHER ==
[2021-02-15] MEDS ORDERED: ASPIRIN 81 MG PO STA (14:33)
[2021-02-15] MEDS ORDERED: NITROGLYCERIN SL TABS 0.4 MG TAB SUBLINGUAL STA ×3 (14:33)
--- NOTE | 2021-02-15 14:38 | ED ---
General Adult HPI - General Chief complaint: Chest Pain Stated complaint: chest pain Time Seen by Provider: 02/15/21 14:12 Source: patient, RN notes reviewed Mode of arrival: ambulatory Limitations: no limitations - History of Present Illness Initial comments: Patient is a pleasant 35-year-old male presenting to the emergency department with complaints of chest discomfort. Onset of symptoms was 2 days ago. Symptoms worsened around noon today. Discomfort seemed somewhat improved is currently rated 6/10. Patient does have history of AML. Patient did have a CTA of the chest done yesterday which was reported as negative. Patient did not have EKG or chest x-ray done. This was as discussed with Bertha Pastrana, practitioner. Patient states he did feel a little bit sweaty earlier. Patient states there is some mild dyspnea however that has been somewhat chronic. Patient does have some increased discomfort with deep breaths. - Related Data Home Medications Medication Instructions Recorded Confirmed Chlorhexidine Gluconate [Peridex] 15 ml PO DAILY 01/25/21 02/12/21 Omeprazole [PriLOSEC] 40 mg PO BID 01/25/21 02/12/21 Previous Rx's Medication Instructions Recorded Acetaminophen Tab [Tylenol] 650 mg PO Q4HR PRN tab 02/02/21 Acyclovir [Zovirax] 400 mg PO BID #60 cap 02/02/21 Ondansetron Odt [Zofran ODT] 4 mg PO Q6HR PRN #45 tab 02/02/21 Sennosides/Docusate Sodium [Senna 2 each PO HS #60 tablet 02/02/21 Plus 8.6-50 mg Tablet] Cholecalciferol [Vitamin D3 (25 50 mcg PO DAILY #60 tablet 02/03/21 Mcg = 1000 Iu)] Folic Acid 1 mg PO DAILY #30 tablet 02/03/21 Folic Acid 1 mg PO DAILY 30 Days tab 02/03/21 Levofloxacin [Levaquin] 500 mg PO Q24H #30 tab 02/03/21 Nystatin 100,000 Unit/ml Susp 500,000 unit PO QID #360 ml 02/03/21 [Mycostatin Oral Susp] Allergies Allergy/AdvReac Type Severity Reaction Status Date / Time No Known Allergies Allergy Verified 02/15/21 13:55 Review of Systems ROS Statement: Those systems with pertinent positive or pertinent negative responses have been documented in the HPI. ROS Other: All systems not noted in ROS Statement are negative. Constitutional: Denies: fever Eyes: Denies: eye pain ENT: Denies: ear pain Respiratory: Reports: as per HPI Cardiovascular: Reports: as per HPI, chest pain Endocrine: Denies: fatigue Gastrointestinal: Denies: abdominal pain Genitourinary: Denies: dysuria Musculoskeletal: Denies: back pain Skin: Denies: rash Neurological: Denies: headache Past Medical History Past Medical History: Cancer Additional Past Medical History / Comment(s): AML, anemia/low RBC, elevated WBC, recent root canal with infection being treated with abx, occasional back pain History of Any Multi-Drug Resistant Organisms: None Reported Past Surgical History: Tonsillectomy Additional Past Surgical History / Comment(s): BMA/biopsy, EGD, colonoscopy Past Anesthesia/Blood Transfusion Reactions: No Reported Reaction Past Psychological History: No Psychological Hx Reported Smoking Status: Never smoker Past Alcohol Use History: None Reported Past Drug Use History: None Reported - Past Family History Mother Family Medical History: No Reported History Father Family Medical History: Osteoarthritis (OA) General Exam Limitations: no limitations General appearance: alert, in no apparent distress Head exam: Present: normocephalic Eye exam: Present: normal appearance Neck exam: Present: normal inspection Respiratory exam: Present: normal lung sounds bilaterally Cardiovascular Exam: Present: regular rate, normal rhythm, normal heart sounds Expanded Peripheral pulses: 2+: Radial (R), Radial (L), Posterior Tibialis (R), Posterior Tibialis (L) GI/Abdominal exam: Present: soft. 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 EKG Findings - EKG Comments: EKG Findings:: Normal sinus rhythm with rate of 75. OR 140. QRS 86. QT 368. QTC 410. Normal axis. LVH criteria. No acute ST change. Medical Decision Making - Medical Decision Making Patient reevaluated and resting comfortably in bed. Discomfort improved with nitroglycerin however still 45/10. Nitropaste will be applied. Medications are limited secondary to patient's counts. Dr. Lewis has been paged for admission covering for hospital call. Cardiology and oncology will be placed on consult. - Lab Data Result diagrams: 02/15/21 14:36 02/15/21 14:36 Lab Results 02/15/21 02/15/21 02/15/21 Range/Units 14:36 14:36 14:36 WBC 1.0 L* (3.8-10.6) k/uL RBC 2.42 L (4.30-5.90) m/uL Hgb 7.7 L (13.0-17.5) gm/dL Hct 22.8 L (39.0-53.0) % MCV 94.3 (80.0-100.0) fL MCH 31.9 (25.0-35.0) pg MCHC 33.8 (31.0-37.0) g/dL RDW 18.4 H (11.5-15.5) % Plt Count 18 L* (150-450) k/uL MPV 9.7 Neutrophils % (Manual) 26 % Lymphocytes % (Manual) 71 % Monocytes % (Manual) 3 % Neutrophils # (Manual) 0.26 L* (1.3-7.7) k/uL Lymphocytes # (Manual) 0.71 L (1.0-4.8) k/uL Monocytes # (Manual) 0.03 (0-1.0) k/uL Nucleated RBCs 3 H (0-0) /100 WBC Manual Slide Review Performed Polychromasia Present Hypochromasia Slight Poikilocytosis Moderate Anisocytosis Slight Macrocytosis Slight PT 10.3 (9.0-12.0) sec INR 1.0 (<1.2) APTT 20.5 L (22.0-30.0) sec Sodium 139 (137-145) mmol/L Potassium 3.9 (3.5-5.1) mmol/L Chloride 107 (98-107) mmol/L Carbon Dioxide 26 (22-30) mmol/L Anion Gap 6 mmol/L BUN 11 (9-20) mg/dL Creatinine 0.58 L (0.66-1.25) mg/dL Est GFR (CKD-EPI)AfAm >90 (>60 ml/min/1.73 sqM) Est GFR (CKD-EPI)NonAf >90 (>60 ml/min/1.73 sqM) Glucose 119 H (74-99) mg/dL Calcium 8.9 (8.4-10.2) mg/dL Magnesium 2.0 (1.6-2.3) mg/dL Total Bilirubin 1.0 (0.2-1.3) mg/dL AST 39 (17-59) U/L ALT 27 (4-49) U/L Alkaline Phosphatase 109 (38-126) U/L Troponin I (0.000-0.034) ng/mL NT-Pro-B Natriuret Pep pg/mL Total Protein 6.4 (6.3-8.2) g/dL Albumin 3.8 (3.5-5.0) g/dL Amylase 39 (30-110) U/L Lipase 79 (23-300) U/L 02/15/21 02/15/21 Range/Units 14:36 14:36 WBC (3.8-10.6) k/uL RBC (4.30-5.90) m/uL Hgb (13.0-17.5) gm/dL Hct (39.0-53.0) % MCV (80.0-100.0) fL MCH (25.0-35.0) pg MCHC (31.0-37.0) g/dL RDW (11.5-15.5) % Plt Count (150-450) k/uL MPV Neutrophils % (Manual) % Lymphocytes % (Manual) % Monocytes % (Manual) % Neutrophils # (Manual) (1.3-7.7) k/uL Lymphocytes # (Manual) (1.0-4.8) k/uL Monocytes # (Manual) (0-1.0) k/uL Nucleated RBCs (0-0) /100 WBC Manual Slide Review Polychromasia Hypochromasia Poikilocytosis Anisocytosis Macrocytosis PT (9.0-12.0) sec INR (<1.2) APTT (22.0-30.0) sec Sodium (137-145) mmol/L Potassium (3.5-5.1) mmol/L Chloride (98-107) mmol/L Carbon Dioxide (22-30) mmol/L Anion Gap mmol/L BUN (9-20) mg/dL Creatinine (0.66-1.25) mg/dL Est GFR (CKD-EPI)AfAm (>60 ml/min/1.73 sqM) Est GFR (CKD-EPI)NonAf (>60 ml/min/1.73 sqM) Glucose (74-99) mg/dL Calcium (8.4-10.2) mg/dL Magnesium (1.6-2.3) mg/dL Total Bilirubin (0.2-1.3) mg/dL AST (17-59) U/L ALT (4-49) U/L Alkaline Phosphatase (38-126) U/L Troponin I 0.362 H* (0.000-0.034) ng/mL NT-Pro-B Natriuret Pep 362 pg/mL Total Protein (6.3-8.2) g/dL Albumin (3.5-5.0) g/dL Amylase (30-110) U/L Lipase (23-300) U/L - Radiology Data Radiology results: image reviewed (Chest x-ray shows likely atelectasis. PICC line.) Disposition Clinical Impression: Unstable angina pectoris Disposition: ADMITTED IP TO THIS HOSP Condition: Serious Is patient prescribed a controlled substance at d/c from ED?: No Referrals: Jose Thomson NPC [Primary Care Provider] - 1-2 days Decision Time: 16:04
[2021-02-15 14:46] LABS: Anisocytosis Slight; HCT 22.8 % (39.0-53.0); HGB 7.7 gm/dL (13.0-17.5); Hypochromasia Slight; MCH 31.9 pg (25.0-35.0); MCHC 33.8 g/dL (31.0-37.0); MCV 94.3 fL (80.0-100.0); Macrocytosis Slight; Mean Platelet Volume 9.7; Poikilocytosis Moderate; RBC 2.42 m/uL (4.30-5.90); RDW 18.4 % (11.5-15.5)
[2021-02-15 14:51] LABS: Platelet Count 18 k/uL (150-450)
[2021-02-15 14:56] LABS: ALT 27 U/L (4-49); AST 39 U/L (17-59); African American GFR (CKD) >90 (>60 ml/min/1.73 sqM); Albumin 3.8 g/dL (3.5-5.0); Alkaline Phosphatase 109 U/L (38-126); Amylase 39 U/L (30-110); Anion Gap 6 mmol/L; Blood Urea Nitrogen 11 mg/dL (9-20); Calcium 8.9 mg/dL (8.4-10.2); Carbon Dioxide 26 mmol/L (22-30); Chloride 107 mmol/L (98-107); Glucose 119 mg/dL (74-99); Lipase 79 U/L (23-300); Non-African American GFR(CKD) >90 (>60 ml/min/1.73 sqM); Potassium 3.9 mmol/L (3.5-5.1); Sodium 139 mmol/L (137-145); Total Protein 6.4 g/dL (6.3-8.2)
[2021-02-15 15:04] LABS: Prothrombin Time 10.3 sec (9.0-12.0)
[2021-02-15 15:05] LABS: Partial Thromboplastin Time 20.5 sec (22.0-30.0)
[2021-02-15 15:12] LABS: Neutrophils % (M) 26 %
[2021-02-15 15:14] LABS: Lymphocytes # (M) 0.71 k/uL (1.0-4.8); Monocytes # (M) 0.03 k/uL (0-1.0); Neutrophils # (M) 0.26 k/uL (1.3-7.7); Nucleated Red Blood Cells 3 /100 WBC (0-0); Total Cells Counted 100
[2021-02-15 15:19] LABS: Polychromasia Present
--- NOTE | 2021-02-15 15:42 | XR ---
EXAMINATION TYPE: XR chest 2V DATE OF EXAM: 02/15/2021 COMPARISON: 02/02/2021 HISTORY: 35-year-old male with chest pain TECHNIQUE: PA and lateral views FINDINGS: Slightly low lung volumes and crowded vascular markings. Heart normal size. Aorta and pelvic vasculat ure within normal limits. Left PICC tip not seen beyond the left brachiocephalic vein, located to the left of midline. No pleural effusion. Some mild patchy density at the medial right base, likely atel ectasis. IMPRESSION: Left PICC tip likely in the left brachiocephalic vein to the left of midline. Mild patchy medial righ t basilar opacity, likely atelectasis.
[2021-02-15] MEDS ORDERED: ATORVASTATIN 40 MG TAB PO SCH (16:00)
[2021-02-15] MEDS ORDERED: NITROGLYCERIN SL TABS 0.4 MG TAB SUBLINGUAL PRN (16:04)
[2021-02-15] MEDS: NITROGLYCERIN OINT 1 INCH/GM PACKET TOPICAL SCH (16:56)
[2021-02-15] MEDS: METOPROLOL TARTRATE 25 MG TAB PO SCH ×2 (16:56→23:09)
[2021-02-15] MEDS ORDERED: ONDANSETRON ODT 4 MG TAB PO PRN (20:47)
--- NOTE | 2021-02-15 20:59 | P.HPIM ---
History of Present Illness H&P Date: 02/15/21 Chief Complaint: Chest pain Patient is a 35-year-old male with a known history of AML with recent chemotherapy, pancytopenia was sent to hospital from his oncologist clinic due to complaints of chest pain. Patient states that he has been having left retrosternal chest pain for the past 2 days intermittently. While he was at his oncologist office patient started having left retrosternal chest pain with radiation to the left arm. Patient otherwise denies any complaints of nausea or vomiting. Mild shortness of breath. Patient was sent to ER for evaluation. EKG and chest x-ray was done. While he was coming to the ER he became diaphoretic. No dizziness or lighthead edness. He was given nitroglycerin which seemed to improve his symptoms. EKG showed left 50 likely in the left brachiocephalic vein to the left of midline. Mild patchy medial right basilar opacity likely atelectasis. EKG showed normal sinus rhythm. On admission blood pressure 89/47, pulse 91 respirations 16 and pulse ox 100% on room air Laboratory showed WBC 1.0, hemoglobin 7.7 and platelets 18 Sodium 132 potassium 3.9 chloride 107 BUN 11 and creatinine 0.58 Troponin 0 0.362, 0.360 proBNP 362 Liver enzymes are not elevated Review of Systems Constitutional: Patient denies any fever or chills . No generalized weakness or weight loss. Abdomen: Patient denied nausea vomiting and diarrhea and abdominal pain. Cardiovascular: Patient does left retrosternal chest pain associated with diaphoresis. No palpitations. No dizziness or lightheadedness.. Respiratory: patient denied any cough or sputum production. No shortness of breath Neurologic: Patient denied any numbness or tingling headache. Musculoskeletal: Patient denies any complaints of joint swelling or deformity. Skin: Negative Psychiatric: Negative Endocrine: No heat or cold intolerance. No recent weight gain. Genitourinary: No dysuria or hematuria. All other 14 point ROS negative except the above Past Medical History Past Medical History: Cancer Additional Past Medical History / Comment(s): AML, anemia/low RBC, elevated WBC, recent root canal with infection being treated with abx, occasional back pain History of Any Multi-Drug Resistant Organisms: None Reported Past Surgical History: Tonsillectomy Additional Past Surgical History / Comment(s): BMA/biopsy, EGD, colonoscopy Past Anesthesia/Blood Transfusion Reactions: No Reported Reaction Smoking Status: Never smoker - Past Family History Mother Family Medical History: No Reported History Father Family Medical History: Osteoarthritis (OA) Medications and Allergies Home Medications Medication Instructions Recorded Confirmed Type Chlorhexidine Gluconate [Peridex] 15 ml PO DAILY 01/25/21 02/15/21 History Omeprazole [PriLOSEC] 40 mg PO BID 01/25/21 02/15/21 History Acyclovir [Zovirax] 400 mg PO BID #60 cap 02/02/21 02/15/21 Rx Ondansetron Odt [Zofran ODT] 4 mg PO Q6HR PRN #45 tab 02/02/21 02/15/21 Rx Cholecalciferol [Vitamin D3 (25 50 mcg PO DAILY #60 tablet 02/03/21 02/15/21 Rx Mcg = 1000 Iu)] Folic Acid 1 mg PO DAILY #30 tablet 02/03/21 02/15/21 Rx Nystatin 100,000 Unit/ml Susp 500,000 unit PO QID #360 ml 02/03/21 02/15/21 Rx [Mycostatin Oral Susp] Levofloxacin [Levaquin] 750 mg PO DAILY 02/15/21 02/15/21 History Loratadine [Claritin] 10 mg PO DAILY 02/15/21 02/15/21 History Atorvastatin [Lipitor] 20 mg PO HS #30 tab 02/16/21 Rx Metoprolol Succinate (ER) [Toprol 25 mg PO DAILY #30 tab.er.24h 02/16/21 Rx XL] Nitroglycerin Sl Tabs [Nitrostat] 0.4 mg SUBLINGUAL Q5M PRN #30 tab 02/16/21 Rx Allergies Allergy/AdvReac Type Severity Reaction Status Date / Time No Known Allergies Allergy Verified 02/15/21 16:39 Physical Exam Vitals: Vital Signs Temp Pulse Pulse Resp BP BP Pulse Ox 02/15/21 18:40 99.1 F 94 20 128/80 99 02/15/21 18:25 92 16 102/67 100 02/15/21 16:21 92 16 107/72 100 02/15/21 16:18 91 16 89/47 100 02/15/21 15:42 86 18 100 02/15/21 14:20 18 02/15/21 13:53 97.4 F L 81 20 112/59 99 Intake and Output 02/15/21 02/15/21 02/15/21 06:59 14:59 22:59 Other: Weight 106.141 kg 106.141 kg PHYSICAL EXAMINATION: Patient is lying in the bed comfortably, no acute distress, awake alert and oriented.. HEENT: Normocephalic. Neck is supple. Pupils reactive. Nostrils clear. Oral cavity is moist. Neck reveals no JVD, carotid bruits, or thyromegaly. CHEST EXAMINATION: Trachea is central. Symmetrical expansion. Lung brock clear to auscultation and percussion. CARDIAC: Normal S1, S2 with no gallops. No murmurs ABDOMEN: Soft. Bowel sounds normal. No organomegaly. No abdominal bruits. Extremities: reveal no edema. No clubbing or cyanosis Neurologically awake, alert, oriented x3 with well-coordinated movements. No focal deficits noted Skin: No rash or skin lesions. Psychiatric: Coperative. Nonsuicidal Musculoskeletal: No joint swelling or deformity. Normal range of motion. Results CBC & Chem 7: 02/16/21 06:48 02/16/21 06:48 Labs: Abnormal Lab Results - Last 24 Hours (Table) 02/15/21 02/15/21 02/15/21 Range/Units 14:36 14:36 14:36 WBC 1.0 L* (3.8-10.6) k/uL RBC 2.42 L (4.30-5.90) m/uL Hgb 7.7 L (13.0-17.5) gm/dL Hct 22.8 L (39.0-53.0) % RDW 18.4 H (11.5-15.5) % Plt Count 18 L* (150-450) k/uL Neutrophils # (Manual) 0.26 L* (1.3-7.7) k/uL Lymphocytes # (Manual) 0.71 L (1.0-4.8) k/uL Nucleated RBCs 3 H (0-0) /100 WBC APTT 20.5 L (22.0-30.0) sec Creatinine 0.58 L (0.66-1.25) mg/dL Glucose 119 H (74-99) mg/dL Troponin I (0.000-0.034) ng/mL 02/15/21 02/15/21 Range/Units 14:36 16:35 WBC (3.8-10.6) k/uL RBC (4.30-5.90) m/uL Hgb (13.0-17.5) gm/dL Hct (39.0-53.0) % RDW (11.5-15.5) % Plt Count (150-450) k/uL Neutrophils # (Manual) (1.3-7.7) k/uL Lymphocytes # (Manual) (1.0-4.8) k/uL Nucleated RBCs (0-0) /100 WBC APTT (22.0-30.0) sec Creatinine (0.66-1.25) mg/dL Glucose (74-99) mg/dL Troponin I 0.362 H* 0.360 H* (0.000-0.034) ng/mL Thrombosis Risk Factor Assmnt - DVT/VTE Prophylaxis DVT/VTE Prophylaxis: Mechanical Prophylaxis ordered - Choose All That Apply Other Risk Factors: No Other congenital or acquired thrombophilia - If yes, enter type in comment: No Assessment and Plan Assessment: Acute non-ST elevated WA with elevated troponin level. Atypical chest pain Possible demand ischemia AML status post chemotherapy on January 25, 2021 Pancytopenia secondary to chemotherapy. Right basilar atelectasis Occasional black pain DVT prophylaxis with SCDs due to thrombocytopenia Plan: Patient will be continued on telemetry monitoring. Serial EKG and troponin x3. Patient was not given aspirin or started on heparin drip due to severe thrombocytopenia. Monitor CBC daily. Continue with statins, metoprolol and cardiology was informed. Oncology will be consulted as well. Follow-up closely. Patient will be continued on home dose of prophylactic antibiotics due to AML and recent chemotherapy. Time with Patient: Greater than 30
[2021-02-15] MEDS: PANTOPRAZOLE 40 MG TABLET PO SCH (21:11)
[2021-02-15] MEDS: ACYCLOVIR 200 MG CAP PO SCH (21:11)
[2021-02-15] MEDS: NYSTATIN 100,000 UNIT/ML SUSP 500,000 UNIT/5 ML CUP PO SCH (21:11)
[2021-02-16] MEDS: NITROGLYCERIN OINT 1 INCH/GM PACKET TOPICAL SCH ×2 (01:08→05:43)
[2021-02-16] MEDS: ACETAMINOPHEN TAB 325 MG TAB PO PRN (03:56)
[2021-02-16 08:09] LABS: African American GFR (CKD) >90 (>60 ml/min/1.73 sqM); Anion Gap 5 mmol/L; Blood Urea Nitrogen 11 mg/dL (9-20); Calcium 8.7 mg/dL (8.4-10.2); Carbon Dioxide 27 mmol/L (22-30); Chloride 108 mmol/L (98-107); Glucose 111 mg/dL (74-99); Non-African American GFR(CKD) >90 (>60 ml/min/1.73 sqM); Sodium 140 mmol/L (137-145)
[2021-02-16 08:12] LABS: Anisocytosis Slight; HGB 7.3 gm/dL (13.0-17.5); Hypochromasia Moderate; MCHC 33.2 g/dL (31.0-37.0); MCV 96.3 fL (80.0-100.0); Macrocytosis Slight; Mean Platelet Volume 10.3; Poikilocytosis Moderate; RBC 2.28 m/uL (4.30-5.90); RDW 18.5 % (11.5-15.5)
[2021-02-16 08:17] LABS: Platelet Count 19 k/uL (150-450); WBC 0.9 k/uL (3.8-10.6)
[2021-02-16] MEDS: LEVOFLOXACIN 750 MG TAB PO SCH (08:41)
[2021-02-16] MEDS: NYSTATIN 100,000 UNIT/ML SUSP 500,000 UNIT/5 ML CUP PO SCH ×4 (08:41→20:59)
[2021-02-16] MEDS: FOLIC ACID 1 MG TAB PO SCH (08:42)
[2021-02-16] MEDS: ACYCLOVIR 200 MG CAP PO SCH ×2 (08:42→20:59)
[2021-02-16] MEDS: CHOLECALCIFEROL 25 MCG (1000 IU) TABLET PO SCH (08:42)
[2021-02-16] MEDS: PANTOPRAZOLE 40 MG TABLET PO SCH ×2 (08:42→20:59)
[2021-02-16] MEDS: LORATADINE 10 MG TAB PO SCH (08:42)
[2021-02-16] MEDS: METOPROLOL TARTRATE 25 MG TAB PO SCH (08:42)
[2021-02-16] MEDS: CHLORHEXIDINE GLUCONATE 15 ML CUP MUCOUS MEM SCH (08:43)
[2021-02-16 08:47] LABS: Mixed Population RBC Present
[2021-02-16 08:48] LABS: Target Cells Present
[2021-02-16] MEDS ORDERED: ASPIRIN 325 MG TAB PO SCH (09:00)
--- NOTE | 2021-02-16 12:24 | P.CRDCN ---
History of Present Illness History of present illness: HISTORY OF PRESENTING ILLNESS This is a pleasant 35-year-old male past medical history significant for AML status post chemotherapy. 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 We have been asked to see in consultation for chest pain. Center to the hospital with a 2-3 day history of chest discomfort in the midsternal region. He states he finished chemotherapy on January 27. He has been following closely with Dr. Gresham. He saw Dr. buckley nurse practitioner and was describing his chest discomfort. He was sent for a CT of the chest that revealed no obvious large pulmonary embolism. He was sent to the hospital for further evaluation. He states the discomfort in his chest is located in the midsternal region and at times radiates to the left shoulder and down his left arm. The pain is worse when he moves his torso, stretches his arm or to lay down. The pain is relieved when he gets up and moves around. He still has a mild chest discomfort that hasn't proved in intensity since admission. EKG reveals sinus mechanism with no acute ST or T wave abnormalities noted. Chest x-ray reveals mild patchy medial right basilar opacity. Laboratory data reviewed, WBC 0.9, hemoglobin 7.3, platelets 19, sodium 140, potassium 4.0, creatinine 0.48, magnesium 2.0, troponin 0.362, 0.360, 0.258 and an T proBNP 362. He takes no daily cardiac medications. He had an echocardiogram performed status post chemotherapy earlier this month revealing preserved LV systolic function with ejection fraction 55-60%. REVIEW OF SYSTEMS At the time of my exam: CONSTITUTIONAL: Denies fever or chills. CARDIOVASCULAR: Denies chest pain, shortness of breath, orthopnea, PND or palpitations. RESPIRATORY: Denies cough. GASTROINTESTINAL: Denies abdominal pain, diarrhea, constipation, nausea or vomiting. MUSCULOSKELETAL: Denies myalgias. NEUROLOGIC: Denies numbness, tingling, headacbe or weakness. ENDOCRINE: Denies fatigue, weight change, polydipsia or polyurina. GENITOURINARY: Denies burning, hematuria or urgency with micturation. HEMATOLOGIC: Denies history of anemia or bleeding. PHYSICAL EXAMINATION Blood pressure 137/82 heart rate 80 afebrile and maintaining oxygen saturation on room air. CONSTITUTIONAL: No apparent distress. HEENT: Head is normocephalic. Pupils are equal, round. Sclerae anicteric. Mucous membranes of the mouth are moist. No JVD. No carotid bruit. CHEST EXAMINATION: Lungs are clear to auscultation. No chest wall tenderness is noted on palpation or with deep breathing. HEART EXAMINATION: Regular rate and rhythm. S1, S2 heard. No murmurs, gallops or rub. ABDOMEN: Soft, nontender. Positive bowel sounds. EXTREMITIES: 2+ peripheral pulses, no lower extremity edema and no calf tenderness. NEUROLOGIC EXAMINATION: Patient is awake, alert and oriented x3. ASSESSMENT Chest pain, pleuritic and musculoskeletal Pancytopenia status post chemotherapy AML status post chemotherapy Troponin leak of unclear etiology, flat in nature and not suggestive of primary myocardial injury with no evidence of EKG abnormalities and atypical chest discomfort PLAN Obtain a limited echo to assess cardiac function. Recommend some Toprol 25 mg daily and atorvastatin 20 mg daily to be taken for the next 30 days. Given his significant pancytopenia we recommend discharge from the hospital to prevent infection. Follow-up in the office with Dr. York for further outpatient testing as warranted. Thank you kindly for this consultation. Nurse Practitioner note has been reviewed, I agree with a documented findings and plan of care. Patient was seen and examined. Past Medical History Past Medical History: Cancer Additional Past Medical History / Comment(s): AML, anemia/low RBC, elevated WBC, recent root canal with infection being treated with abx, occasional back pain History of Any Multi-Drug Resistant Organisms: None Reported Past Surgical History: Tonsillectomy Additional Past Surgical History / Comment(s): BMA/biopsy, EGD, colonoscopy Past Anesthesia/Blood Transfusion Reactions: No Reported Reaction Smoking Status: Never smoker - Past Family History Mother Family Medical History: No Reported History Father Family Medical History: Osteoarthritis (OA) Medications and Allergies Home Medications Medication Instructions Recorded Confirmed Type Chlorhexidine Gluconate [Peridex] 15 ml PO DAILY 01/25/21 02/15/21 History Omeprazole [PriLOSEC] 40 mg PO BID 01/25/21 02/15/21 History Acyclovir [Zovirax] 400 mg PO BID #60 cap 02/02/21 02/15/21 Rx Ondansetron Odt [Zofran ODT] 4 mg PO Q6HR PRN #45 tab 02/02/21 02/15/21 Rx Cholecalciferol [Vitamin D3 (25 50 mcg PO DAILY #60 tablet 02/03/21 02/15/21 Rx Mcg = 1000 Iu)] Folic Acid 1 mg PO DAILY #30 tablet 02/03/21 02/15/21 Rx Nystatin 100,000 Unit/ml Susp 500,000 unit PO QID #360 ml 02/03/21 02/15/21 Rx [Mycostatin Oral Susp] Levofloxacin [Levaquin] 750 mg PO DAILY 02/15/21 02/15/21 History Loratadine [Claritin] 10 mg PO DAILY 02/15/21 02/15/21 History Allergies Allergy/AdvReac Type Severity Reaction Status Date / Time No Known Allergies Allergy Verified 02/15/21 16:39 Physical Exam Vitals: Vital Signs Temp Pulse Pulse Resp BP BP Pulse Ox 02/16/21 05:00 98.8 F 02/16/21 03:30 99.7 F H 109 H 17 114/70 95 02/15/21 23:08 99 F 101 H 17 119/72 95 02/15/21 20:05 99 F 90 19 125/83 99 02/15/21 18:40 99.1 F 94 20 128/80 99 02/15/21 18:25 92 16 102/67 100 02/15/21 16:21 92 16 107/72 100 02/15/21 16:18 91 16 89/47 100 02/15/21 15:42 86 18 100 02/15/21 14:20 18 02/15/21 13:53 97.4 F L 81 20 112/59 99 Intake and Output 02/15/21 02/16/21 02/16/21 22:59 06:59 14:59 Other: Voiding Method Toilet Toilet # Voids 3 Weight 106.141 kg 105.2 kg Results 02/16/21 06:48 02/16/21 06:48 Cardiac Enzymes 02/15/21 02/15/21 02/15/21 Range/Units 14:36 14:36 16:35 AST 39 (17-59) U/L Troponin I 0.362 H* 0.360 H* (0.000-0.034) ng/mL 02/15/21 Range/Units 20:39 AST (17-59) U/L Troponin I 0.258 H* (0.000-0.034) ng/mL Coagulation 02/15/21 Range/Units 14:36 PT 10.3 (9.0-12.0) sec APTT 20.5 L (22.0-30.0) sec CBC 02/15/21 02/16/21 Range/Units 14:36 06:48 WBC 1.0 L* 0.9 L* (3.8-10.6) k/uL RBC 2.42 L 2.28 L (4.30-5.90) m/uL Hgb 7.7 L 7.3 L (13.0-17.5) gm/dL Hct 22.8 L 22.0 L (39.0-53.0) % Plt Count 18 L* 19 L* (150-450) k/uL Comprehensive Metabolic Panel 02/15/21 02/16/21 Range/Units 14:36 06:48 Sodium 139 140 (137-145) mmol/L Potassium 3.9 4.0 (3.5-5.1) mmol/L Chloride 107 108 H (98-107) mmol/L Carbon Dioxide 26 27 (22-30) mmol/L BUN 11 11 (9-20) mg/dL Creatinine 0.58 L 0.48 L (0.66-1.25) mg/dL Glucose 119 H 111 H (74-99) mg/dL Calcium 8.9 8.7 (8.4-10.2) mg/dL AST 39 (17-59) U/L ALT 27 (4-49) U/L Alkaline Phosphatase 109 (38-126) U/L Total Protein 6.4 (6.3-8.2) g/dL Albumin 3.8 (3.5-5.0) g/dL Current Medications Generic Name Dose Route Start Last Admin Trade Name Freq PRN Reason Stop Dose Admin Acetaminophen 650 mg 02/16/21 03:34 02/16/21 03:56 Acetaminophen Tab 325 Mg Tab PO 650 mg Q6HR PRN Administration Fever and/ or Pain Acyclovir 400 mg 02/15/21 21:00 02/15/21 21:11 Acyclovir 200 Mg Cap PO 400 mg BID MARTINE Administration Atorvastatin Calcium 40 mg 02/15/21 16:00 02/15/21 16:56 Atorvastatin 40 Mg Tab PO 40 mg HS MARTINE Administration Chlorhexidine Gluconate 15 ml 02/16/21 09:00 Chlorhexidine Gluconate 15 Ml Cup MUCOUS MEM DAILY [facility] Cholecalciferol 50 mcg 02/16/21 09:00 Cholecalciferol 25 Mcg (1000 Iu) Tablet PO DAILY [facility] Folic Acid 1 mg 02/16/21 09:00 Folic Acid 1 Mg Tab PO DAILY [facility] Levofloxacin 750 mg 02/16/21 09:00 Levofloxacin 750 Mg Tab PO DAILY [facility] Loratadine 10 mg 02/16/21 09:00 Loratadine 10 Mg Tab PO DAILY [facility] Metoprolol Tartrate 25 mg 02/15/21 16:00 02/15/21 23:09 Metoprolol Tartrate 25 Mg Tab PO 25 mg BID MARTINE Administration Nitroglycerin 0.4 mg 02/15/21 16:04 Nitroglycerin Sl Tabs 0.4 Mg Tab SUBLINGUAL Q5M PRN Chest Pain Nitroglycerin 1 inch 02/15/21 16:00 02/16/21 05:43 Nitroglycerin Oint 1 Inch/Gm Packet TOPICAL Not Given Q6HR [facility] Nystatin 500,000 unit 02/15/21 22:00 02/15/21 21:11 Nystatin 100,000 Unit/Ml Susp 500,000 Unit/5 Ml Cup PO 500,000 unit QID [facility] Administration Ondansetron HCl 4 mg 02/15/21 20:47 Ondansetron Odt 4 Mg Tab PO Q6HR PRN Nausea Pantoprazole Sodium 40 mg 02/15/21 21:00 02/15/21 21:11 Pantoprazole 40 Mg Tablet PO 40 mg BID [facility] Administration Intake and Output 02/15/21 02/16/21 02/16/21 22:59 06:59 14:59 Other: Voiding Method Toilet Toilet # Voids 3 Weight 106.141 kg 105.2 kg 02/16/21 06:48 02/16/21 06:48
[2021-02-16 13:37] LABS: Chol/HDL Ratio 4.13; Cholesterol 161 mg/dL (0-200); LDL Cholesterol,Calculated 111.4 mg/dL (0.0-131.0)
--- NOTE | 2021-02-16 17:13 | ECHOF ---
Referral Reason: MEASUREMENTS -------- HEIGHT: 182.9 cm WEIGHT: 104.8 kg BP: 114/70 FINDINGS -------- Sinus rhythm. Echo done 02/05 normal EF: Limited study for LV function, no changes. This was a technically good study. Overall left ventricular systolic function is normal with, an EF between 55 - 60 %. The right ventricle is normal in size. The left atrial size is normal. The right atrial size is normal. There is no pericardial effusion. CONCLUSIONS -------- 1. Echo done 02/05 normal EF: Limited study for LV function, no changes. 2. Overall left ventricular systolic function is normal with, an EF between 55 - 60 %. 3. There is no pericardial effusion. [employer] ASSEMBLER: Carisa Jacksno RDCS
--- NOTE | 2021-02-16 17:13 | P.CONS ---
History of Present Illness - Reason for Consult Consult date: 02/16/21 Chest Pain, AML, Pancytopenia - History of Present Illness the patient is a 75-year-old white male well known to myself. He was initially evaluated in 09/07 for macrocytic anemia. Initial workup was negative other than high sedimentation rate. Patient was referred to rheumatology and had negative autoimmune workup. On follow-up he was found to have new onset of leukocytosis with a significant left shift. He therefore underwent bone marrow aspiration biopsy in early 02/05 that was positive for acute myeloid leukemia. The patient was admitted for induction chemotherapy with a 7+3 regimen on 01/26/21, and was discharged on 02/03/21. He has followed up in the office since then with CBC 3 times a week and blood transfusions as needed. She was admitted this time because of development of mid chest pain with some radiation to the left shoulder and down the left arm. This was of acute onset and not associated with any significant exertion there was no associated shortness of breath, diaphoresis or nausea. It is intermittent. CTA of the chest was negative for PE. Patient was subsequently admitted and had cardiac workup done which showed no change in his EKG. There was a minimal troponin leak in the 0.3 range, without any increase on follow-up. The patient's pretreatment echocardiogram was normal. His CBC this admission showed WBC in the 900-1000 range, platelets 17-18, and hemoglobin 7.8. He d enied any signs or symptoms suggestive of infection. There is no history of smoking, or cardiovascular risk factors. number of the left upper extremity was negative on 02/02/21. He does have PICC line in situ on the left Review of Systems Constitutional: Reports fatigue Eyes: denies blurred vision, denies pain Ears: deny: decreased hearing, ear discharge, earache, tinnitus Ears, nose, mouth and throat: Denies headache, Denies sore throat Cardiovascular: Reports chest pain, Reports decreased exercise tolerance Respiratory: Denies cough Gastrointestinal: Denies abdominal pain, Denies diarrhea, Denies nausea, Denies vomiting Genitourinary: Reports as per HPI Musculoskeletal: Reports muscle weakness, Denies myalgias Integumentary: Denies pruritus, Denies rash Neurological: Reports weakness (mild) Psychiatric: Denies anxiety, Denies depression Endocrine: Reports fatigue Hematologic/Lymphatic: Reports as per HPI Past Medical History Past Medical History: Cancer Additional Past Medical History / Comment(s): AML, anemia/low RBC, elevated WBC, recent root canal with infection being treated with abx, occasional back pain History of Any Multi-Drug Resistant Organisms: None Reported Past Surgical History: Tonsillectomy Additional Past Surgical History / Comment(s): BMA/biopsy, EGD, colonoscopy Past Anesthesia/Blood Transfusion Reactions: No Reported Reaction Smoking Status: Never smoker - Past Family History Mother Family Medical History: No Reported History Father Family Medical History: Osteoarthritis (OA) Medications and Allergies Home Medications Medication Instructions Recorded Confirmed Type Chlorhexidine Gluconate [Peridex] 15 ml PO DAILY 01/25/21 02/15/21 History Omeprazole [PriLOSEC] 40 mg PO BID 01/25/21 02/15/21 History Acyclovir [Zovirax] 400 mg PO BID #60 cap 02/02/21 02/15/21 Rx Ondansetron Odt [Zofran ODT] 4 mg PO Q6HR PRN #45 tab 02/02/21 02/15/21 Rx Cholecalciferol [Vitamin D3 (25 50 mcg PO DAILY #60 tablet 02/03/21 02/15/21 Rx Mcg = 1000 Iu)] Folic Acid 1 mg PO DAILY #30 tablet 02/03/21 02/15/21 Rx Nystatin 100,000 Unit/ml Susp 500,000 unit PO QID #360 ml 02/03/21 02/15/21 Rx [Mycostatin Oral Susp] Levofloxacin [Levaquin] 750 mg PO DAILY 02/15/21 02/15/21 History Loratadine [Claritin] 10 mg PO DAILY 02/15/21 02/15/21 History Atorvastatin [Lipitor] 20 mg PO HS #30 tab 02/16/21 Rx Metoprolol Succinate (ER) [Toprol 25 mg PO DAILY #30 tab.er.24h 02/16/21 Rx XL] Nitroglycerin Sl Tabs [Nitrostat] 0.4 mg SUBLINGUAL Q5M PRN #30 tab 02/16/21 Rx Allergies Allergy/AdvReac Type Severity Reaction Status Date / Time No Known Allergies Allergy Verified 02/15/21 16:39 Physical Exam Vitals: Vital Signs Temp Pulse Pulse Resp BP BP Pulse Ox 02/16/21 16:00 98.0 F 95 16 128/80 99 02/16/21 14:00 80 16 02/16/21 11:38 98.6 F 80 16 137/82 99 02/16/21 08:00 98.7 F 85 16 116/74 96 02/16/21 05:00 98.8 F 02/16/21 03:30 99.7 F H 109 H 17 114/70 95 02/15/21 23:08 99 F 101 H 17 119/72 95 02/15/21 20:05 99 F 90 19 125/83 99 02/15/21 18:40 99.1 F 94 20 128/80 99 02/15/21 18:25 92 16 102/67 100 Intake and Output 02/16/21 02/16/21 02/16/21 06:59 14:59 22:59 Intake Total 240 1600 Balance 240 1600 Intake: Oral 240 1600 Other: Voiding Method Toilet Toilet # Voids 3 1 Weight 105.2 kg - Constitutional General appearance: no acute distress - EENT Eyes: EOMI, PERRLA ENT: hearing grossly normal, normal oropharynx - Neck Neck: no lymphadenopathy Thyroid: bilateral: normal size - Respiratory Respiratory: bilateral: CTA - Cardiovascular Rhythm: regular Heart sounds: normal: S1, S2 - Gastrointestinal General gastrointestinal: normal bowel sounds, soft - Integumentary Integumentary: normal - Neurologic Neurologic: CNII-XII intact - Musculoskeletal Musculoskeletal: generalized weakness, strength equal bilaterally - Psychiatric Psychiatric: A&O x's 3, appropriate affect Results CBC & Chem 7: 02/16/21 06:48 02/16/21 06:48 Labs: Abnormal Lab Results - Last 24 Hours (Table) 02/15/21 02/15/21 02/16/21 Range/Units 16:35 20:39 06:48 WBC (3.8-10.6) k/uL RBC (4.30-5.90) m/uL Hgb (13.0-17.5) gm/dL Hct (39.0-53.0) % RDW (11.5-15.5) % Plt Count (150-450) k/uL Chloride 108 H (98-107) mmol/L Creatinine 0.48 L (0.66-1.25) mg/dL Glucose 111 H (74-99) mg/dL Troponin I 0.360 H* 0.258 H* (0.000-0.034) ng/mL HDL Cholesterol 39.0 L (40.0-60.0) mg/dL 02/16/21 Range/Units 06:48 WBC 0.9 L* (3.8-10.6) k/uL RBC 2.28 L (4.30-5.90) m/uL Hgb 7.3 L (13.0-17.5) gm/dL Hct 22.0 L (39.0-53.0) % RDW 18.5 H (11.5-15.5) % Plt Count 19 L* (150-450) k/uL Chloride (98-107) mmol/L Creatinine (0.66-1.25) mg/dL Glucose (74-99) mg/dL Troponin I (0.000-0.034) ng/mL HDL Cholesterol (40.0-60.0) mg/dL Comments: EKG report reviewed Chest x-ray: report reviewed CT scan - chest: report reviewed Assessment and Plan (1) Unstable angina pectoris Narrative/Plan: the patient was admitted with a diagnosis of the same, given history of chest pain, as well as small troponin leak. He has been evaluated by cardiology. It is felt that this troponin leak is of unclear etiology. The patient is 35-year-old, with no family history of premature coronary artery disease, and has no cardiovascular risk factors. At this time he is not a candidate for any invasive, investigational procedures because of his low WBC and platelets. Therefore cardiology has recommended empiric statin and beta adrian. The patient was advised that it is possible that his chest discomfort could be due to impending bone marrow recovery causing marrow expansion, especially in the sternal region. However it would be reasonable to empirically treat for possible cardiac causes and work that up further once his counts have recovered. Given the location of his pain, I will also check repeat Doppler of his left u pper extremity. Current Visit: Yes Status: Acute Code(s): I20.0 - UNSTABLE ANGINA SNOMED Code(s): 8041962 (2) AML (acute myeloid leukemia) Narrative/Plan: the patient is status post induction treatment with the 7+3 regimen. He is currently on day 20. Bone marrow recovery is expected in the next few days. Repeat bone marrow aspiration biopsy to be scheduled once recovery has stabilized. Current Visit: No Status: Acute Priority: High Code(s): C92.00 - ACUTE MYELOBLASTIC LEUKEMIA, NOT HAVING ACHIEVED REMISSION SNOMED Code(s): 64178801 (3) Pancytopenia due to antineoplastic chemotherapy Narrative/Plan: his counts are in a safe range from the hematology standpoint. Transfuse, if needed, to keep hemoglobin greater than 7, and platelets greater than 10,000 unless the patient has active bleeding. Only irradiated products to be transfused Current Visit: No Status: Acute Code(s): D61.810 - ANTINEOPLASTIC CHEMOTHERAPY INDUCED PANCYTOPENIA; T45.1X5A - ADVERSE EFFECT OF ANTINEOPLASTIC AND IMMUNOSUP DRUGS, INIT SNOMED Code(s): 560685414139788
[2021-02-16] MEDS ORDERED: ATORVASTATIN 20 MG TAB PO SCH (21:00)
--- NOTE | 2021-02-16 22:11 | P.PN ---
Subjective Progress Note Date: 02/16/21 Principal diagnosis: Elevated troponin level Patient is a 35-year-old male with a known history of AML with recent chemotherapy, pancytopenia was sent to hospital from his oncologist clinic due to complaints of chest pain. Patient states that he has been having left retrosternal chest pain for the past 2 days intermittently. While he was at his oncologist office patient started having left retrosternal chest pain with radiation to the left arm. Patient otherwise denies any complaints of nausea or vomiting. Mild shortness of breath. Patient was sent to ER for evaluation. EKG and chest x-ray was done. While he was coming to the ER he became diaphoretic. No dizziness or lightheadedness. He was given nitroglycerin which seemed to improve his symptoms. EKG showed left 50 likely in the left brachiocephalic vein to the left of midline. Mild patchy medial right basilar opacity likely atelectasis. EKG showed normal sinus rhythm. On admission blood pressure 89/47, pulse 91 respirations 16 and pulse ox 100% on room air Laboratory showed WBC 1.0, hemoglobin 7.7 and platelets 18 Sodium 132 potassium 3.9 chloride 107 BUN 11 and creatinine 0.58 Troponin 0 0.362, 0.360 proBNP 362 Liver enzymes are not elevated 02/16/2021 Patient is currently sitting in the chair comfortably. No complaints of chest pain or shortness of breath. 2-D echocardiogram showed normal EF. Limited study for LV function. No changes. Overall left ventricle systolic function is normal with ejection fraction 55-60%. No pericardial effusion. Patient was seen by cardiology and recommends to continue metoprolol and statins. Patient may need workup down the road. Patient did improve symptomatically otherwise. Continue with telemetry monitoring. Anticipate discharge home soon. Current medications reviewed. Objective - Vital Signs Vital signs: Vital Signs Temp 98.0 F 02/16/21 16:00 Pulse 95 02/16/21 16:00 Resp 16 02/16/21 16:00 BP 128/80 02/16/21 16:00 Pulse Ox 99 02/16/21 16:00 Intake & Output 02/16/21 02/16/21 02/17/21 06:59 18:59 06:59 Intake Total 1840 Balance 1840 Weight 105.2 kg Intake: Oral 1840 Other: Voiding Method Toilet Toilet # Voids 3 1 - Exam PHYSICAL EXAMINATION: Patient is lying in the bed comfortably, no acute distress, awake alert and oriented.. HEENT: Normocephalic. Neck is supple. Pupils reactive. Nostrils clear. Oral cavity is moist. Neck reveals no JVD, carotid bruits, or thyromegaly. CHEST EXAMINATION: Trachea is central. Symmetrical expansion. Lung brock clear to auscultation and percussion. CARDIAC: Normal S1, S2 with no gallops. No murmurs ABDOMEN: Soft. Bowel sounds normal. No organomegaly. No abdominal bruits. Extremities: reveal no edema. No clubbing or cyanosis Neurologically awake, alert, oriented x3 with well-coordinated movements. No focal deficits noted Skin: No rash or skin lesions. Psychiatric: Coperative. Nonsuicidal Musculoskeletal: No joint swelling or deformity. Normal range of motion. - Labs CBC & Chem 7: 02/16/21 06:48 02/16/21 06:48 Labs: Abnormal Lab Results - Last 24 Hours (Table) 02/15/21 02/16/21 02/16/21 Range/Units 20:39 06:48 06:48 WBC 0.9 L* (3.8-10.6) k/uL RBC 2.28 L (4.30-5.90) m/uL Hgb 7.3 L (13.0-17.5) gm/dL Hct 22.0 L (39.0-53.0) % RDW 18.5 H (11.5-15.5) % Plt Count 19 L* (150-450) k/uL Chloride 108 H (98-107) mmol/L Creatinine 0.48 L (0.66-1.25) mg/dL Glucose 111 H (74-99) mg/dL Troponin I 0.258 H* (0.000-0.034) ng/mL HDL Cholesterol 39.0 L (40.0-60.0) mg/dL Assessment and Plan Assessment: Acute non-ST elevated VA with elevated troponin level. Atypical chest pain. Mostly pleuritic and musculoskeletal. AML status post chemotherapy on January 25, 2021 Pancytopenia secondary to chemotherapy. Right basilar atelectasis Occasional black pain DVT prophylaxis with SCDs due to thrombocytopenia Plan: Patient will be continued on telemetry monitoring. Serial EKG and troponin x3. Patient was not given aspirin or started on heparin drip due to severe thrombocytopenia. Monitor CBC daily. Continue with statins, metoprolol as per cardiology recommendations. 2-D echocardiogram was ordered.. Oncology will be consulted as well. Follow-up closely. Patient will be continued on home dose of prophylactic antibiotics due to AML and recent chemotherapy.
--- NOTE | 2021-02-16 22:22 | US ---
EXAMINATION TYPE: US venous doppler duplex UE LT DATE OF EXAM: 02/16/2021 COMPARISON: US 02/02/2021 CLINICAL HISTORY: left chest, UE pain. SIDE PERFORMED: Left Left Arm: Negative for DVT There is venous flow and compressibility demonstrated in the axillary and brachial veins. Patency of the cephalic and basilic veins. There is patency of the radial and ulnar veins. IMPRESSION: No evidence of deep vein thrombosis in the left arm.
[2021-02-17] MEDS: ACETAMINOPHEN TAB 325 MG TAB PO PRN (04:49)
[2021-02-17 07:57] VITALS: BP 122/73; PULSE 89; RESP 16; TEMP 97.7
[2021-02-17] MEDS: ACYCLOVIR 200 MG CAP PO SCH (08:00)
[2021-02-17] MEDS: CHLORHEXIDINE GLUCONATE 15 ML CUP MUCOUS MEM SCH (08:00)
[2021-02-17] MEDS: NYSTATIN 100,000 UNIT/ML SUSP 500,000 UNIT/5 ML CUP PO SCH (08:00)
[2021-02-17] MEDS: FOLIC ACID 1 MG TAB PO SCH (08:01)
[2021-02-17] MEDS: PANTOPRAZOLE 40 MG TABLET PO SCH (08:01)
[2021-02-17] MEDS: LORATADINE 10 MG TAB PO SCH (08:01)
[2021-02-17] MEDS: CHOLECALCIFEROL 25 MCG (1000 IU) TABLET PO SCH (08:01)
[2021-02-17] MEDS: LEVOFLOXACIN 750 MG TAB PO SCH (08:02)
[2021-02-17] MEDS ORDERED: METOPROLOL SUCCINATE (ER) 25 MG TAB.ER.24H PO SCH (09:00)
--- NOTE | 2021-02-17 13:59 | P.PN ---
Subjective Progress Note Date: 02/17/21 Patient was interviewed and examined sitting in the chair with his spouse at the bedside. Patient has no complaints today of any chest pain. He reports that the pain in his chest, left arm, mid back does respond to Tylenol. It is felt at this time that his pain is mostly related to his cancer treatment. Echocardiogram was completed which demonstrated an EF of 55-60%. GENERAL: Well-appearing, well-nourished and in no acute distress. NECK: Supple without JVD or thyromegaly. LUNGS: Breath sounds clear to auscultation bilaterally. Respiration equal and unlabored. No wheezes, rales or rhonchi. HEART: Regular rate and rhythm without murmurs, rubs or gallops. S1 and S2 heard. EXTREMITIES: Normal range of motion, no edema. No clubbing or cyanosis. Peripheral pulses intact and strong. VITALS: [97.7, pulse 89, respirations 16, blood pressure 122/73, O2 sat 97% on room air] TELEMETRY: [Dictation is normal sinus rhythm on telemetry] LABS: White count 0.9, hemoglobin 7.3, sodium 140, potassium 4.0, B1 11, creatinine 0.48, glucose 111, triglycerides 53, cholesterol 161, LDL 111.4, VLDL 10.60, HDL 39.0. IMPRESSION: Chest pain, pleuritic and musculoskeletal Pancytopenia status post chemotherapy AML status post chemotherapy Troponin leak of unclear etiology, flat nature and not suggestive of primary [place] arterial injury with no evidence of EKG abnormalities and atypical chest discomfort PLAN: [Continue medications as prescribed Patient can be discharged from a cardiology standpoint Follow-up in the office with Dr. York for further outpatient testing as warranted The patient has been seen and evaluated. Plan of care has been reviewed and agreed upon by Dr. York.] Objective - Vital Signs Vital signs: Vital Signs Temp 97.7 F 02/17/21 07:55 Pulse 89 02/17/21 07:55 Resp 16 02/17/21 07:55 BP 122/73 02/17/21 07:55 Pulse Ox 97 02/17/21 07:55 Intake & Output 02/16/21 02/17/21 02/17/21 18:59 06:59 18:59 Intake Total 1840 480 240 Balance 1840 480 240 Weight 104.3 kg Intake: Oral 1840 480 240 Other: Voiding Method Toilet Toilet # Voids 1 2 - Labs CBC & Chem 7: 02/16/21 06:48 02/16/21 06:48
--- NOTE | 2021-02-23 18:16 | P.DS ---
Providers Date of admission: 02/15/21 16:04 Expected date of discharge: 02/17/21 Attending physician: Alissa Lewis Consults: 02/15/21 16:04 Consult Physician Urgent Consulting Provider: Israel York Consult Reason/Comments: cp, elevated trop Do you want consulting provider notified?: Yes Consult Physician Urgent Consulting Provider: Leif Gresham Consult Reason/Comments: Oncological care Do you want consulting provider notified?: Yes Primary care physician: Jose Thomson Hospital Course: Discharge diagnosis Atypical chest pain. Mostly pleuritic and musculoskeletal. Elevated troponin level likely due to ischemia without evidence of infarct. AML status post chemotherapy on January 25, 2021 Pancytopenia secondary to chemotherapy. Right basilar atelectasis Occasional black pain DVT prophylaxis with SCDs due to thrombocytopenia Hospital course Patient is a 35-year-old male with a known history of AML with recent chemotherapy, pancytopenia was sent to hospital from his oncologist clinic due to complaints of chest pain. Patient states that he has been having left retrosternal chest pain for the past 2 days intermittently. While he was at his oncologist office patient started having left retrosternal chest pain with radiation to the left arm. Patient otherwise denies any complaints of nausea or vomiting. Mild shortness of breath. Patient was sent to ER for evaluation. EKG and chest x-ray was done. While he was coming to the ER he became diaphoretic. No dizziness or lightheadedness. He was given nitroglycerin which seemed to improve his symptoms. EKG showed left 50 likely in the left brachiocephalic vein to the left of midline. Mild patchy medial right basilar opacity likely atelectasis. EKG showed normal sinus rhythm. On admission blood pressure 89/47, pulse 91 respirations 16 and pulse ox 100% on room air Laboratory showed WBC 1.0, hemoglobin 7.7 and platelets 18 Sodium 132 potassium 3.9 chloride 107 BUN 11 and creatinine 0.58 Troponin 0 0.362, 0.360 proBNP 362 Liver enzymes are not elevated 02/16/2021 Patient is currently sitting in the chair comfortably. No complaints of chest pain or shortness of breath. 2-D echocardiogram showed normal EF. Limited study for LV function. No changes. Overall left ventricle systolic function is normal with ejection fraction 55-60%. No pericardial effusion. Patient was seen by cardiology and recommends to continue metoprolol and statins. Patient may need workup down the road. Patient did improve symptomatically otherwise. Continue with telemetry monitoring. Anticipate discharge home soon. 02/17/2021 Patient is currently sitting in the chair comfortably. No complaints of chest pain or shortness of breath. No pleuritic chest pain today. Cardiology recommends to continue metoprolol and statins and follow-up as an outpatient. No further workup recommended at this time. His chest pain could be expanding bone marrow as per oncology. Patient denied any fever or chills. No headache or dizziness lightheadedness. No cough or sputum production. Patient is being discharged home today. Next and PHYSICAL EXAMINATION: Patient is lying in the bed comfortably, no acute distress, awake alert and oriented.. HEENT: Normocephalic. Neck is supple. Pupils reactive. Nostrils clear. Oral cavity is moist. Neck reveals no JVD, carotid bruits, or thyromegaly. CHEST EXAMINATION: Trachea is central. Symmetrical expansion. Lung brock clear to auscultation and percussion. CARDIAC: Normal S1, S2 with no gallops. No murmurs ABDOMEN: Soft. Bowel sounds normal. No organomegaly. No abdominal bruits. Extremities: reveal no edema. No clubbing or cyanosis Neurologically awake, alert, oriented x3 with well-coordinated movements. No focal deficits noted Skin: No rash or skin lesions. Psychiatric: Coperative. Nonsuicidal Musculoskeletal: No joint swelling or deformity. Normal range of motion. Vital signs: Vital Signs Temp 97.7 F 02/17/21 07:55 Pulse 89 02/17/21 07:55 Resp 16 02/17/21 07:55 BP 122/73 02/17/21 07:55 Pulse Ox 97 02/17/21 07:55 Intake & Output 02/16/21 02/17/21 02/17/21 18:59 06:59 18:59 Intake Total 1840 480 240 Balance 1840 480 240 Weight 104.3 kg Intake: Oral 1840 480 240 Other: Voiding Method Toilet Toilet # Voids 1 2 Patient Condition at Discharge: Serious Plan - Discharge Summary Discharge Rx Participant: Yes New Discharge Prescriptions: New Atorvastatin [Lipitor] 20 mg PO HS #30 tab Nitroglycerin Sl Tabs [Nitrostat] 0.4 mg SUBLINGUAL Q5M PRN #30 tab PRN Reason: Chest Pain Metoprolol Succinate (ER) [Toprol XL] 25 mg PO DAILY #30 tab.er.24h Continue Acyclovir [Zovirax] 400 mg PO BID #60 cap Levofloxacin [Levaquin] 750 mg PO DAILY Omeprazole [PriLOSEC] 40 mg PO BID Chlorhexidine Gluconate [Peridex] 15 ml PO DAILY Ondansetron Odt [Zofran ODT] 4 mg PO Q6HR PRN #45 tab PRN Reason: Nausea Nystatin 100,000 Unit/ml Susp [Mycostatin Oral Susp] 500,000 unit PO QID #360 ml Cholecalciferol [Vitamin D3 (25 Mcg = 1000 Iu)] 50 mcg PO DAILY #60 tablet Folic Acid 1 mg PO DAILY #30 tablet Loratadine [Claritin] 10 mg PO DAILY Discharge Medication List Chlorhexidine Gluconate [Peridex] 15 ml PO DAILY 01/25/21 [History] Omeprazole [PriLOSEC] 40 mg PO BID 01/25/21 [History] Acyclovir [Zovirax] 400 mg PO BID #60 cap 02/02/21 [Rx] Ondansetron Odt [Zofran ODT] 4 mg PO Q6HR PRN #45 tab 02/02/21 [Rx] Cholecalciferol [Vitamin D3 (25 Mcg = 1000 Iu)] 50 mcg PO DAILY #60 tablet 02/03/21 [Rx] Folic Acid 1 mg PO DAILY #30 tablet 02/03/21 [Rx] Nystatin 100,000 Unit/ml Susp [Mycostatin Oral Susp] 500,000 unit PO QID #360 ml 02/03/21 [Rx] Levofloxacin [Levaquin] 750 mg PO DAILY 02/15/21 [History] Loratadine [Claritin] 10 mg PO DAILY 02/15/21 [History] Atorvastatin [Lipitor] 20 mg PO HS #30 tab 02/16/21 [Rx] Metoprolol Succinate (ER) [Toprol XL] 25 mg PO DAILY #30 tab.er.24h 02/16/21 [Rx] Nitroglycerin Sl Tabs [Nitrostat] 0.4 mg SUBLINGUAL Q5M PRN #30 tab 02/16/21 [Rx] Follow up Appointment(s)/Referral(s): Jose Thomson, NPC [Primary Care Provider] - 1-2 days (office closed please make an apt Friday ) Patient Instructions/Handouts: Angina (DC) Discharge Disposition: HOME SELF-CARE
== END 2021-02-17 12:00 | disposition home or self-care (01) ==
LOC: EC 13:50 → 3SCARD 16:04 → INTOOBSV 16:04 → 3SCARD 17:35 → UNDODISIN 02-17 12:00
PROVIDERS: ADMIT Internal Medicine; ATTEND Internal Medicine
DX: R07.89 Other chest pain (principal); R79.89 Other specified abnormal findings of blood chemistry; C92.00 Acute myeloblastic leukemia, not having achieved remission; D61.810 Antineoplastic chemotherapy induced pancytopenia; T45.1X5A Adverse effect of antineoplastic and immunosuppressive drugs, initial encounter; J98.11 Atelectasis; R61 Generalized hyperhidrosis; M54.9 Dorsalgia, unspecified; Z79.2 Long term (current) use of antibiotics; Z79.899 Other long term (current) drug therapy; Z98.890 Other specified postprocedural states; Z95.828 Presence of other vascular implants and grafts; Z86.19 Personal history of other infectious and parasitic diseases; Z82.61 Family history of arthritis
CPT/HCPCS: 99285; 36415; 94760; 93005; 93308; 83880; 80061; 80053; 80048; 82150; 83690; 83735; 84484; 85025 ×2; 85610; 85730; 71046; 93971; G0378 ×3

== ENCOUNTER 2021-04-02 09:02 | Inpatient (IN) | payer BC, OTHER ==
[2021-04-02] MEDS ORDERED: NITROGLYCERIN SL TABS 0.4 MG TAB SUBLINGUAL PRN (10:04)
[2021-04-02] MEDS ORDERED: PROCHLORPERAZINE INJ 10 MG/2 ML VIAL IVP PRN (10:07)
[2021-04-02] MEDS ORDERED: ONDANSETRON 4 MG/2 ML VIAL IVP PRN (10:07)
[2021-04-02] MEDS ORDERED: LORazepam 2 MG/ML INJ IV PRN (10:07)
[2021-04-02 10:22] LABS: ALT 24 U/L (4-49); AST 51 U/L (17-59); African American GFR (CKD) >90 (>60 ml/min/1.73 sqM); Albumin 4.2 g/dL (3.5-5.0); Albumin/Globulin Ratio 1.8; Alkaline Phosphatase 73 U/L (38-126); Anion Gap 6 mmol/L; Blood Urea Nitrogen 10 mg/dL (9-20); Calcium 9.6 mg/dL (8.4-10.2); Carbon Dioxide 27 mmol/L (22-30); Chloride 107 mmol/L (98-107); Globulin 2.4 g/dL; Glucose 113 mg/dL (74-99); Non-African American GFR(CKD) >90 (>60 ml/min/1.73 sqM); Phosphorus 3.8 mg/dL (2.5-4.5); Potassium 3.7 mmol/L (3.5-5.1); Sodium 140 mmol/L (137-145); Total Bilirubin 1.1 mg/dL (0.2-1.3); Total Protein 6.6 g/dL (6.3-8.2); Uric Acid 8.2 mg/dL (3.5-8.5)
[2021-04-02 10:39] LABS: Anisocytosis Marked; HCT 25.9 % (39.0-53.0); HGB 7.9 gm/dL (13.0-17.5); Hypochromasia Marked; MCH 33.7 pg (25.0-35.0); MCHC 30.6 g/dL (31.0-37.0); Macrocytosis Marked; Mean Platelet Volume 11.5; Poikilocytosis Moderate; RBC 2.36 m/uL (4.30-5.90)
[2021-04-02 10:40] LABS: RDW 25.1 % (11.5-15.5)
[2021-04-02 10:46] LABS: Platelet Count 51 k/uL (150-450)
[2021-04-02 11:50] LABS: Blast Cells # (M) 6.98 k/uL (0); Lymphocytes # (M) 2.33 k/uL (1.0-4.8); Metamyelocytes # (M) 0.47 k/uL (0); Metamyelocytes % 1 %; Neutrophils # (M) 37.67 k/uL (1.3-7.7); Neutrophils % (M) 81 %; Nucleated Red Blood Cells 9 /100 WBC (0-0); Total Cells Counted 200; WBC 46.5 k/uL (3.8-10.6)
[2021-04-02] MEDS: ALTEPLASE 2 MG VIAL (CATHFLO) IV PRN ×2 (11:51→11:53)
[2021-04-02 11:53] LABS: Polychromasia Present
[2021-04-02] MEDS ORDERED: FLUDARABINE PHOSPHATE IV SCH (12:00)
[2021-04-02] MEDS ORDERED: SODIUM CHLORIDE 0.9% IV SCH (12:00)
[2021-04-02] MEDS ORDERED: IDARUBICIN HCL IV SCH ×2 (12:00)
[2021-04-02] MEDS: NYSTATIN 100,000 UNIT/ML SUSP 500,000 UNIT/5 ML CUP PO SCH ×3 (15:28→21:30)
[2021-04-02] MEDS: prednisoLONE ACETATE 1% OPHTH DROPS 5 ML BTL BOTH EYES SCH ×3 (15:29→21:31)
[2021-04-02] MEDS: SALT AND SODA MOUTHWASH 1,000 ML PO SCH ×2 (15:37→17:33)
--- NOTE | 2021-04-02 15:37 | P.HPIM ---
History of Present Illness H&P Date: 04/02/21 Chief Complaint: Re-Induction Timed Chemotherapy, AML Mr. 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 He began Filgrastrim Day 0, 04/01. Rydapt will begin Day 8-21 (50mg PO BID for 14 days). He will receive prophylaxic anti-viral, antibiotics, and antifungal. Neuro checks and prednisone eye drops will continue through protocol. Unfortunetly we have not been able to obtain blood return from his picc line, despite two rounds of TPA. A replacement Picc ordered and asked for stat replace, RN is working with labor relations director to switch as soon as possible. Oncologic History: Mr Ramos is a reason white male, quite healthy at baseline. The patient was in his usual state of health until about late 06/06. Around that time he started developing upper mid abdominal pain, that was present intermittently, ranging from moderate to severe. He denied any aggravating or relieving factors. He did report some associated bloating and burping. Around this time he also realized that he had lost about 25 pounds of weight compared to his baseline. He was therefore evaluated by his primary care physician in early 08/06. Labs from 07/21/20 showed hemoglobin of 8.5, WBC 7.9 with normal differential, MCV 106 and platelets 317. His chem panel revealed ALT of 57 and alkaline phosphatase of 221. Bilirubin was normal. Amylase and lipase were also within normal limits. Thyroid studies were normal. Repeat CBC from 08/15/20 again showed hemoglobin of 8.8 with MCV of 104.7. Reticulocyte count was elevated at 3.74%. He had a CT of the abdomen and pelvis with IV contrast on 07/21/20 that did not show any significant findings. He also had an EGD and colonoscopy in 08/06 showing some erosive esophagitis and a small hiatal hernia with biopsy positive only for chronic inflammation. CBC from 07/10/20 had shown hemoglobin of 16.4 with WBC 12.2 and MCV 93.1. Chem panel at that time and show normal liver enzymes. Was therefore referred here for further evaluation and recommendations. He denied any prior history of blood related problems or malignancy. He denied any obvious bleeding. In retrospect he states that since about 04/06, he had had a cough off and on and some night sweats. Since about the end of 08/06, he feels that the abdominal pain has improved. His weight has also been stable.After his initial visit here, he developed a reddish skin rash on his LE, with some swelling of his knees and LE. This improved with steroids and antibiotic. He also increased the dose of his Prilosec with marked improvement in his GI symptoms and appetite. He had multiple labs showing a sed rate of > 140, and low level RF positive. i t was negative otherwise. he had CT chest done in 12/06, which was also negative. He was referred to rheumatology, based on the clinical presentation, to check for autoimmune disease. He had an extensive workup with them, which showed ADAM and HLA-B27 positivity, without however any other supporting labs or symptoms. Therefore it is felt that at this time he did not have any definite evidence of autoimmune disease. the patient stated that he had been feeling well, with good energy, appetite, and no other significant symptoms still about early 01/05. At that time he had a root canal procedure following which he developed marked swelling and pain due to infection. Symptoms improved with antibiotics. at his visit on 01/09/21, the patient was noted to have marked increase in WBC with significant left shift including blasts. Flow cytometry confirmed about 53% myeloblasts. He had a bone marrow aspiration biopsy in 01/18/21 confirming AML, with 30-35% involvement of the bone marrow. Cytogenetics and AML FISH studies were negative. There appeared to be some underlying myelodysplasia. 01/23/21-Preliminary BM Bx results, AML, pendgin cytogenetics. Pt and brought in for diagnosis discussion and plan to start induction chemo LIYAH. Pt is 3 mo . Pt has no physical c/o. the patient received induction chemotherapy with a 7+3 regimen, completing that on 02/05/21. 02/07/21-Plt trans from Mondays plt count of 6K was given yesterday, had hematruia, that has resolved, feels great today. Plt are 5K today. No fevers, bleeding, appetite good, mild N, no V, stool is loose but no blood, mucus, cramping. He had some purple spots on his face but they are stable. Moderate metal taste in the mouth. Tylenol for MS c/o, nothing persistent or progressive. No other c/o, questions or concerns. the patient was admitted to the hospital again for febrile neutropenia, which resolved fairly quickly with antibiotics, with infection workup negative. Patient was able to discharged on 02/17/21. he states [facility] but has not had an actual appointment yet Review of systems otherwise as per HPI and negative out of 10 Education on 03/28 for Moni-FLAG with rydapt for FLT3 mutation edu. Pt feels fine, he has no c/o at this time. He did get free drug approved. Review of Systems All systems: negative Constitutional: Reports as per HPI Past Medical History Past Medical History: Cancer Additional Past Medical History / Comment(s): AML, anemia/low RBC, elevated WBC, recent root canal with infection being treated with abx, occasional back pain History of Any Multi-Drug Resistant Organisms: None Reported Past Surgical History: Tonsillectomy Additional Past Surgical History / Comment(s): BMA/biopsy, EGD, colonoscopy Past Anesthesia/Blood Transfusion Reactions: No Reported Reaction Smoking Status: Never smoker - Past Family History Mother Family Medical History: No Reported History Father Family Medical History: Osteoarthritis (OA) Medications and Allergies Home Medications Medication Instructions Recorded Confirmed Type Chlorhexidine Gluconate [Peridex] 15 ml PO DAILY 01/25/21 02/15/21 History Omeprazole [PriLOSEC] 40 mg PO BID 01/25/21 02/15/21 History Acyclovir [Zovirax] 400 mg PO BID #60 cap 02/02/21 02/15/21 Rx Ondansetron Odt [Zofran ODT] 4 mg PO Q6HR PRN #45 tab 02/02/21 02/15/21 Rx Cholecalciferol [Vitamin D3 (25 50 mcg PO DAILY #60 tablet 02/03/21 02/15/21 Rx Mcg = 1000 Iu)] Folic Acid 1 mg PO DAILY #30 tablet 02/03/21 02/15/21 Rx Nystatin 100,000 Unit/ml Susp 500,000 unit PO QID #360 ml 02/03/21 02/15/21 Rx [Mycostatin Oral Susp] Levofloxacin [Levaquin] 750 mg PO DAILY 02/15/21 02/15/21 History Loratadine [Claritin] 10 mg PO DAILY 02/15/21 02/15/21 History Atorvastatin [Lipitor] 20 mg PO HS #30 tab 02/16/21 Rx Metoprolol Succinate (ER) [Toprol 25 mg PO DAILY #30 tab.er.24h 02/16/21 Rx XL] Nitroglycerin Sl Tabs [Nitrostat] 0.4 mg SUBLINGUAL Q5M PRN #30 tab 02/16/21 Rx Allergies Allergy/AdvReac Type Severity Reaction Status Date / Time No Known Allergies Allergy Verified 04/01/21 11:19 Physical Exam Vitals: Vital Signs Temp Pulse Resp BP Pulse Ox 04/02/21 09:20 97.6 F 76 16 144/78 100 Intake and Output 04/01/21 04/02/21 04/02/21 22:59 06:59 14:59 Other: Weight 109.4 kg Results CBC & Chem 7: 04/02/21 09:49 04/02/21 09:49 Thrombosis Risk Factor Assmnt - DVT/VTE Prophylaxis DVT/VTE Prophylaxis: Mechanical Prophylaxis ordered, Contraindicated - See note (platelets less than 50K) Assessment and Plan Plan: AML (acute myeloid leukemia) Narrative/Plan: - The patient is status post induction treatment with the 7+3 regimen. Unfo rtunetly he is here requiring re-duction - Monitor labs daily - GOod supportive care Current Visit: No Status: Acute Priority: High Code(s): C92.00 - ACUTE MYELOBLASTIC LEUKEMIA, NOT HAVING ACHIEVED REMISSION SNOMED Code(s): 08318644 Pancytopenia due to antineoplastic chemotherapy Narrative/Plan: - His counts are in a safe range from the hematology standpoint. - Transfuse, if needed, to keep hemoglobin greater than 7, and platelets greater than 10,000 unless the patient has active bleeding. - Only irradiated products to be transfused - Monitor CBC Daily Current Visit: No Status: Acute Code(s): D61.810 - ANTINEOPLASTIC CHEMOTHE RAPY INDUCED PANCYTOPENIA; T45.1X5A - ADVERSE EFFECT OF ANTINEOPLASTIC AND IMMUNOSUP DRUGS, INIT SNOMED Code(s): 796948052947852
[2021-04-02] MEDS: FILGRASTIM-SNDZ 480 MCG/0.8 ML SYRINGE SQ SCH (15:49)
[2021-04-02] MEDS: ONDANSETRON 16 MG in SODIUM CHLORIDE 0.9% 50 ML IVPB SCH (15:49)
[2021-04-02] MEDS: SODIUM CHLORIDE 0.9% 1,000 ML IV SCH (16:44)
[2021-04-02] MEDS: IDARUBICIN HCL IV SCH ×2 (16:55)
[2021-04-02] MEDS: SODIUM CHLORIDE 0.9% IV SCH ×2 (17:17→21:31)
[2021-04-02] MEDS: FLUDARABINE PHOSPHATE IV SCH (17:17)
[2021-04-02 17:30] LABS: INR 0.9 (<1.2); Prothrombin Time 10.2 sec (9.0-12.0)
[2021-04-02] MEDS: PANTOPRAZOLE 40 MG TABLET PO SCH (17:33)
--- NOTE | 2021-04-02 20:09 | XR ---
EXAMINATION TYPE: XR chest 1V portable DATE OF EXAM: 04/02/2021 COMPARISON: 02/15/2021 HISTORY: Chest pain TECHNIQUE: 2 views FINDINGS: Heart and mediastinum are normal. Lungs are clear. Diaphragm is normal. Bony thorax is inta ct. There are chest leads. IMPRESSION: Normal chest. No adverse change.
[2021-04-02] MEDS: ATORVASTATIN 20 MG TAB PO SCH (21:30)
[2021-04-02] MEDS: LEVOFLOXACIN 500 MG TAB PO SCH (21:30)
[2021-04-02] MEDS: ACYCLOVIR 200 MG CAP PO SCH (21:30)
[2021-04-02] MEDS: CYTARABINE IV SCH (21:31)
[2021-04-02] MEDS: FLUCONAZOLE 100 MG TAB PO SCH (21:38)
--- NOTE | 2021-04-02 22:11 | CONS ---
CONSULTATION DATE OF SERVICE: 04/02/2021. REASON FOR CONSULTATION: Advice regarding root canal infection and other multiple medical issues, requested by Hematology/Oncology. HISTORY OF PRESENT ILLNESS: This 35-year-old gentleman with a past medical history of tonsillectomy and history of DJD was recently diagnosed to have AML. The patient was admitted for chemotherapy at this time. The patient has also had recent root canal treatment and antibiotics. The patient's white count is elevated at 46.2. Hemoglobin is 7.9. The blast cells are 15%. There is no history of any fever, rigor or chills. No history of headache, loss of consciousness or seizures at this time. PAST MEDICAL HISTORY: History of AML, elevated WBC, recent root canal treatment. HOME MEDICATIONS: Home medications are Zofran 4 mg q.6 p.r.n., Prilosec, Nystatin, nitroglycerin, Toprol- XL, Claritin, folic acid, vitamin D2, Peridex, Lipitor, Levaquin, Zoladex. ALLERGIES: NONE. FAMILY HISTORY: No history of heart disease or strokes in the family. SOCIAL HISTORY: No history of smoking. No history of alcohol intake. REVIEW OF SYSTEMS: ENT: No diminished hearing. No diminished vision. CARDIOVASCULAR SYSTEM: No angina, palpitations. RESPIRATORY SYSTEM: No cough, hemoptysis. GI: No nausea, vomiting. : No dysuria. NERVOUS SYSTEM: No numbness, weakness. ALLERGY/IMMUNOLOGY: No asthma or hay fever. MUSCULOSKELETAL: No history of arthritis. CONSTITUTIONAL: As mentioned earlier. DERMATOLOGY: Negative. RHEUMATOLOGY: Negative. PSYCHIATRY: As mentioned earlier. HEMATOLOGY/ONCOLOGY: As mentioned earlier. PHYSICAL EXAMINATION: Patient alert and oriented x3. Pulse 76, blood pressure 113/72, respiration 14, temperature 98 degrees, pulse ox 96% on room air. HEENT: Conjunctivae pale. Oral mucosa moist. NECK: No jugular venous distention. No carotid bruit. No lymph node enlargement. CARDIOVASCULAR SYSTEM: S1, S2 muffled. No S3. No S4. RESPIRATORY: Breath sounds diminished at the bases. A few scattered rhonchi. ABDOMEN: Soft, obese, nontender. LEGS: No edema. No swelling. NERVOUS SYSTEM: Higher functions as mentioned earlier. Moves all 4 limbs. No focal motor or sensory deficit. LYMPHATICS: No lymph node palpable in neck, axillae or groin. SKIN: No ulcer, rash, bleeding. JOINTS: No active deforming arthropathy. LABS: WBC 46.3, hemoglobin 7.9. ASSESSMENT: 1. AML, for chemotherapy. 2. Increased white count. 3. Anemia. 4. Macrocytosis. 5. Thrombocytopenia. 6. Increased random glucose. 7. History of tonsillectomy. 8. Obesity with body mass index of 32.7. RECOMMENDATIONS AND DISCUSSION: I recommend to continue current medications. I would recommend a portable chest x-ray as a baseline. Otherwise, repeat labs per Hematology/Oncology. We will follow the patient closely with you. Further recommendations to follow. Thank you, Mp Steven, for letting us participate in the care of this patient. MMODL / IJN: [id number] /
[2021-04-03] MEDS: SODIUM CHLORIDE 0.9% 1,000 ML IV SCH ×3 (03:48→16:51)
[2021-04-03 05:50] LABS: Anisocytosis Marked; HCT 23.4 % (39.0-53.0); HGB 7.2 gm/dL (13.0-17.5); Hypochromasia Marked; MCH 33.7 pg (25.0-35.0); MCV 108.9 fL (80.0-100.0); Macrocytosis Marked; Mean Platelet Volume 10.8; Poikilocytosis Moderate; RBC 2.14 m/uL (4.30-5.90); RDW 24.6 % (11.5-15.5)
[2021-04-03 05:57] LABS: INR 1.1 (<1.2); Prothrombin Time 11.6 sec (9.0-12.0)
[2021-04-03 05:59] LABS: Platelet Count 47 k/uL (150-450)
[2021-04-03 06:57] LABS: Band Neutrophils % 2 %; Neutrophils % (M) 80 %
[2021-04-03 06:58] LABS: Blast Cells # (M) 3.42 k/uL (0); Lymphocytes # (M) 2.74 k/uL (1.0-4.8); Nucleated Red Blood Cells 18 /100 WBC (0-0); Total Cells Counted 200; WBC 34.2 k/uL (3.8-10.6)
[2021-04-03 07:00] LABS: Anisocytosis (M) Present; Poikilocytosis (M) Present; Polychromasia Present; Stomatocytes Present; Tear Drop Cells Present
[2021-04-03] MEDS: METOPROLOL SUCCINATE (ER) 25 MG TAB.ER.24H PO SCH (08:08)
[2021-04-03] MEDS: LORATADINE 10 MG TAB PO SCH (08:08)
[2021-04-03] MEDS: FOLIC ACID 1 MG TAB PO SCH (08:09)
[2021-04-03] MEDS: CHOLECALCIFEROL 25 MCG (1000 IU) TABLET PO SCH (08:09)
[2021-04-03] MEDS: PANTOPRAZOLE 40 MG TABLET PO SCH ×2 (08:09→17:20)
[2021-04-03] MEDS: ACYCLOVIR 200 MG CAP PO SCH ×2 (08:09→20:42)
[2021-04-03] MEDS: NYSTATIN 100,000 UNIT/ML SUSP 500,000 UNIT/5 ML CUP PO SCH ×4 (08:10→20:44)
[2021-04-03] MEDS: CHLORHEXIDINE GLUCONATE 15 ML CUP MUCOUS MEM SCH (08:10)
[2021-04-03] MEDS: SALT AND SODA MOUTHWASH 1,000 ML PO SCH ×3 (08:11→17:20)
[2021-04-03] MEDS: prednisoLONE ACETATE 1% OPHTH DROPS 5 ML BTL BOTH EYES SCH ×4 (09:41→20:44)
[2021-04-03 10:22] LABS: African American GFR (CKD) 140.7 (60.0-200.0); Albumin 3.5 g/dL (3.80-4.90); Albumin/Globulin Ratio 1.67 (1.60-3.17); Anion Gap 8.3 mmol/L (4.00-12.00); BUN/Creat Ratio 21.43 Ratio (12.00-20.00); Carbon Dioxide 24.7 mmol/L (21.6-31.8); Globulin 2.1 g/dL (1.6-3.3); Magnesium 1.6 mg/dL (1.5-2.4); Non-African American GFR(CKD) 121.4 (60.0-200.0); Phosphorus 4.7 mg/dL (2.4-5.1); Total Bilirubin 0.7 mg/dL (0.2-1.2); Total Protein 5.6 g/dL (6.2-8.2); Uric Acid 10.9 mg/dL (3.7-8.7)
[2021-04-03] MEDS: FILGRASTIM-SNDZ 480 MCG/0.8 ML SYRINGE SQ SCH (14:50)
--- NOTE | 2021-04-03 15:05 | P.PN ---
Subjective Progress Note Date: 04/03/21 Principal diagnosis: AML - Timed Re-induction Started chemotherapy yesterday after new picc line placed. he is tolerating well. No BM since arriving otherwise no acute complaints. Labs are stable Objective - Vital Signs Vital signs: Vital Signs Temp 98.5 F 04/03/21 12:15 Pulse 104 H 04/03/21 12:15 Resp 16 04/03/21 12:15 BP 102/57 04/03/21 12:15 Pulse Ox 98 04/03/21 12:15 Intake & Output 04/02/21 04/03/21 04/03/21 18:59 06:59 18:59 Intake Total 563 Balance 563 Weight 109.4 kg Intake: Intake, IV Titration 563 Amount Fludarabine Phosphate 70 100 mg In Sodium Chloride 0.9 % 100 ml @ 200 mls/hr IV Q24H [facility] Rx#:[id number] IDArubicin HCL 20 mg 138 IDArubicin HCL 3 mg In Empty Syringe 1 syr @ 138 mls/hr IV Q24H [facility] Rx#: [id number] Ondansetron 16 mg In 100 Sodium Chloride 0.9% 50 ml @ 232 mls/hr IVPB Q24H [facility] Rx#:[id number] Sodium Chloride 0.9% 1, 225 000 ml @ 75 mls/hr IV . [id number] [facility] Rx#:[id number] Other: Voiding Method Toilet Toilet Toilet # Voids 2 - Exam - Constitutional General appearance: no acute distress - EENT Eyes: EOMI, PERRLA ENT: hearing grossly normal, normal oropharynx - Neck Neck: no lymphadenopathy Thyroid: bilateral: normal size - Respiratory Respiratory: bilateral: CTA - Cardiovascular Rhythm: regular Heart sounds: normal: S1, S2 - Gastrointestinal General gastrointestinal: normal bowel sounds, soft - Integumentary Integumentary: normal - Neurologic Neurologic: CNII-XII intact - Musculoskeletal Musculoskeletal: generalized weakness, strength equal bilaterally - Psychiatric Psychiatric: A&O x's 3, appropriate affect - Labs CBC & Chem 7: 04/03/21 04:45 04/03/21 04:45 Labs: Abnormal Lab Results - Last 24 Hours (Table) 04/03/21 04/03/21 04/03/21 Range/Units 04:45 04:45 04:45 WBC 34.2 H (3.8-10.6) k/uL RBC 2.14 L (4.30-5.90) m/uL Hgb 7.2 L (13.0-17.5) gm/dL Hct 23.4 L (39.0-53.0) % MCV 108.9 H (80.0-100.0) fL RDW 24.6 H (11.5-15.5) % Plt Count 47 L (150-450) k/uL Blast Cells % 10 H* % Neutrophils # (Manual) 28.00 H (1.3-7.7) k/uL Blast Cells # (Man) 3.42 H (0) k/uL Nucleated RBCs 18 H (0-0) /100 WBC Macrocytosis Marked A APTT 21.0 L (22.0-30.0) sec BUN/Creatinine Ratio 21.43 H (12.00-20.00) Ratio Uric Acid 10.9 H (3.7-8.7) mg/dL Calcium 8.0 L (8.7-10.3) mg/dL AST 58 H (14-35) U/L Lactate Dehydrogenase 1360 H (120-246) U/L Total Protein 5.6 L (6.2-8.2) g/dL Albumin 3.50 L (3.80-4.90) g/dL Assessment and Plan Plan: AML (acute myeloid leukemia) Narrative/Plan: - The patient is status post induction treatment with the 7+3 regimen. Unfortunetly he is here requiring re-duction - Monitor labs daily - GOod supportive care Current Visit: No Status: Acute Priority: High Code(s): C92.00 - ACUTE MYELOBLASTIC LEUKEMIA, NOT HAVING ACHIEVED REMISSION SNOMED Code(s): 87934045 Pancytopenia due to antineoplastic chemotherapy Narrative/Plan: - His counts are in a safe range from the hematology standpoint. - Transfuse, if needed, to keep hemoglobin greater than 7, and platelets greater than 10,000 unless the patient has active bleeding. - Only irradiated products to be transfused - Monitor CBC Daily Current Visit: No Status: Acute Code(s): D61.810 - ANTINEOPLASTIC CHEMOTHERAPY INDUCED PANCYTOPENIA; T45.1X5A - ADVERSE EFFECT OF ANTINEOPLASTIC AND IMMUNOSUP DRUGS, INIT SNOMED Code(s): 385731082194172 Continue Day 2 of chemo Daily Labs Add Bowel Regimen Physician Attest: I have completed the full history and physical and agree with above dictation, dictated as a ascribe
[2021-04-03] MEDS: ONDANSETRON 16 MG in SODIUM CHLORIDE 0.9% 50 ML IVPB SCH (15:50)
[2021-04-03] MEDS: IDARUBICIN HCL IV SCH ×2 (16:29)
[2021-04-03] MEDS: SODIUM CHLORIDE 0.9% IV SCH ×2 (16:44→20:53)
[2021-04-03] MEDS: FLUDARABINE PHOSPHATE IV SCH (16:44)
--- NOTE | 2021-04-03 17:02 | PN ---
PROGRESS NOTE DATE OF SERVICE: 04/03/2021 This 35-year-old gentleman was admitted by Dr. Gresham for treatment of acute myeloid leukemia, is being closely monitored. No chest pain. No palpitations. No fever. The baseline chest x-ray showed no acute findings. PHYSICAL EXAMINATION: Alert and oriented x3. Pulse 104, blood pressure 120/67, respirations 16 temperature 98.2, pulse ox 98% on room air. HEENT: Conjunctivae pale. Oral mucosa moist. NECK: No jugular venous distention. No lymph node enlargement. CARDIOVASCULAR: S1, S2, muffled. No S3, no S4, RESPIRATORY: Diminished breath sounds at the bases. ABDOMEN: Soft, nontender. LEGS: No edema, no swelling. NERVOUS SYSTEM: No focal deficits. LABS: WBC 34, hemoglobin 7.2. The platelets are 47. ASSESSMENT: 1. Acute myeloid leukemia, on chemotherapy. 2. Increased WBC. 3. Anemia. 4. Macrocytosis. 5. Thrombocytopenia. 6. Increased random glucose. 7. History of tonsillectomy. 8. History of obesity with body mass index of 38.7. RECOMMENDATIONS AND DISCUSSION: I recommend to continue current management, continue symptomatic treatment. Continue to monitor CBC closely. Further recommendations to follow. MMODL / IJN: [id number] /
[2021-04-03] MEDS: LEVOFLOXACIN 500 MG TAB PO SCH (20:41)
[2021-04-03] MEDS: ATORVASTATIN 20 MG TAB PO SCH (20:42)
[2021-04-03] MEDS: CYTARABINE IV SCH (20:53)
[2021-04-03] MEDS: FLUCONAZOLE 100 MG TAB PO SCH (21:18)
[2021-04-04] MEDS: PANTOPRAZOLE 40 MG TABLET PO SCH ×2 (08:59→16:50)
[2021-04-04] MEDS: SALT AND SODA MOUTHWASH 1,000 ML PO SCH ×3 (08:59→16:50)
[2021-04-04] MEDS: ACYCLOVIR 200 MG CAP PO SCH ×2 (08:59→20:04)
[2021-04-04] MEDS: CHLORHEXIDINE GLUCONATE 15 ML CUP MUCOUS MEM SCH (09:00)
[2021-04-04] MEDS: CHOLECALCIFEROL 25 MCG (1000 IU) TABLET PO SCH (09:00)
[2021-04-04] MEDS: NYSTATIN 100,000 UNIT/ML SUSP 500,000 UNIT/5 ML CUP PO SCH ×4 (09:00→23:06)
[2021-04-04] MEDS: FOLIC ACID 1 MG TAB PO SCH (09:00)
[2021-04-04] MEDS: METOPROLOL SUCCINATE (ER) 25 MG TAB.ER.24H PO SCH (09:00)
[2021-04-04] MEDS: LORATADINE 10 MG TAB PO SCH (09:00)
[2021-04-04] MEDS: prednisoLONE ACETATE 1% OPHTH DROPS 5 ML BTL BOTH EYES SCH ×4 (09:01→23:06)
[2021-04-04] MEDS: SODIUM CHLORIDE 0.9% 1,000 ML IV SCH ×2 (09:15→23:21)
[2021-04-04 10:18] LABS: Anisocytosis Moderate; HCT 22.7 % (39.0-53.0); Hypochromasia Marked; MCHC 30.6 g/dL (31.0-37.0); Macrocytosis Marked; Mean Platelet Volume 12.2; Poikilocytosis Moderate; RBC 2.05 m/uL (4.30-5.90); RDW 23.9 % (11.5-15.5)
[2021-04-04 10:32] LABS: ALT 19 U/L (4-49); AST 124 U/L (17-59); African American GFR (CKD) >90 (>60 ml/min/1.73 sqM); Albumin 3.6 g/dL (3.5-5.0); Albumin/Globulin Ratio 1.5; Alkaline Phosphatase 87 U/L (38-126); Anion Gap 6 mmol/L; Blood Urea Nitrogen 15 mg/dL (9-20); Calcium 8.5 mg/dL (8.4-10.2); Carbon Dioxide 23 mmol/L (22-30); Chloride 108 mmol/L (98-107); Globulin 2.4 g/dL; Glucose 133 mg/dL (74-99); Non-African American GFR(CKD) >90 (>60 ml/min/1.73 sqM); Phosphorus 3.2 mg/dL (2.5-4.5); Potassium 3.8 mmol/L (3.5-5.1); Sodium 137 mmol/L (137-145); Uric Acid 7.6 mg/dL (3.5-8.5)
[2021-04-04 10:35] LABS: Platelet Count 29 k/uL (150-450)
--- NOTE | 2021-04-04 10:46 | IR ---
PICC LINE PLACEMENT: HISTORY: Infection requiring long-term antibiotic therapy PROCEDURE: Ultrasound and fluoroscopic guidance of PICC line placement. COMPLICATIONS: None ANESTHESIA: 1. 1% Lidocaine locally. FINDINGS/TECHNIQUE: The procedure was explained to the patient. The risks, complications, benefits and alternatives were discussed and any questions were answered. Informed consent was obtained. The patient was placed supine on the fluoroscopic table and prepped and draped in the usual sterile fash ion. Utilizing a 21 gauge needle and sonographic and fluoroscopic guidance, access in the basilic v ein was achieved and there is placement of a 0.018 guidewire. The vein is patent. A 4-F sheath was placed over the guidewire. The guidewire and dilator were removed and a 4-F. PICC line was placed th rough the sheath with the tip at the level of the SVC. The sheath was removed, the catheter was flus hed and sutured into position. The patient was stable throughout the procedure and remained stable u juan discharge from the Department of Radiology. The vein puncture was patent under ultrasound. A ortega scale image was obtained to document patency of the vein punctured. All elements of the maximal barrier technique were utilized. FLUOROSCOPY TIME: 0.2 minutes IMPRESSION: Successful PICC line placement under ultrasound and fluoroscopic guidance.
[2021-04-04 11:05] LABS: Blast Cells # (M) 0.54 k/uL (0); Lymphocytes # (M) 0.27 k/uL (1.0-4.8); Neutrophils # (M) 12.73 k/uL (1.3-7.7); Neutrophils % (M) 95 %; Nucleated Red Blood Cells 1 /100 WBC (0-0); Total Cells Counted 200; WBC 13.4 k/uL (3.8-10.6)
[2021-04-04 11:07] LABS: Polychromasia Present; Tear Drop Cells Present
[2021-04-04] MEDS: FILGRASTIM-SNDZ 480 MCG/0.8 ML SYRINGE SQ SCH (13:01)
[2021-04-04] MEDS: ONDANSETRON 16 MG in SODIUM CHLORIDE 0.9% 50 ML IVPB SCH (15:29)
--- NOTE | 2021-04-04 15:36 | P.PN ---
Subjective Progress Note Date: 04/04/21 Principal diagnosis: AML - Timed Re-induction Tolerating chemo well, no acute complaints Objective - Vital Signs Vital signs: Vital Signs Temp 98.8 F 04/04/21 11:53 Pulse 101 H 04/04/21 11:53 Resp 19 04/04/21 11:53 BP 128/75 04/04/21 11:53 Pulse Ox 100 04/04/21 11:53 Intake & Output 04/03/21 04/04/21 04/04/21 18:59 06:59 18:59 Intake Total 1188 2000 120 Balance 1188 2000 120 Intake: Intake, IV Titration 1188 1400 Amount Cytarabine/Pf 4,000 mg 500 Cytarabine/Pf 700 mg In Sodium Chloride 0.9% 500 ml 500 ml @ 143.75 mls/hr IV Q24H [facility] Rx#: [id number] Fludarabine Phosphate 70 100 mg In Sodium Chloride 0.9 % 100 ml @ 200 mls/hr IV Q24H [facility] Rx#:[id number] IDArubicin HCL 20 mg 138 IDArubicin HCL 3 mg In Empty Syringe 1 syr @ 138 mls/hr IV Q24H [facility] Rx#: [id number] Ondansetron 16 mg In 50 Sodium Chloride 0.9% 50 ml @ 232 mls/hr IVPB Q24H [facility] Rx#:[id number] Sodium Chloride 0.9% 1, 900 900 000 ml @ 75 mls/hr IV . [id number] [facility] Rx#:[id number] Oral 600 120 Other: Voiding Method Toilet Toilet # Voids 3 - Exam - Constitutional General appearance: no acute distress - EENT Eyes: EOMI, PERRLA ENT: hearing grossly normal, normal oropharynx - Neck Neck: no lymphadenopathy Thyroid: bilateral: normal size - Respiratory Respiratory: bilateral: CTA - Cardiovascular Rhythm: regular Heart sounds: normal: S1, S2 - Gastrointestinal General gastrointestinal: normal bowel sounds, soft - Integumentary Integumentary: normal - Neurologic Neurologic: CNII-XII intact - Musculoskeletal Musculoskeletal: generalized weakness, strength equal bilaterally - Psychiatric Psychiatric: A&O x's 3, appropriate affect - Labs CBC & Chem 7: 04/04/21 09:21 04/04/21 09:21 Labs: Abnormal Lab Results - Last 24 Hours (Table) 04/04/21 04/04/21 Range/Units 09:21 09:21 WBC 13.4 H (3.8-10.6) k/uL RBC 2.05 L (4.30-5.90) m/uL Hgb 7.0 L (13.0-17.5) gm/dL Hct 22.7 L (39.0-53.0) % MCV 111.0 H (80.0-100.0) fL MCHC 30.6 L (31.0-37.0) g/dL RDW 23.9 H (11.5-15.5) % Plt Count 29 L (150-450) k/uL Blast Cells % 4 H* % Neutrophils # (Manual) 12.73 H (1.3-7.7) k/uL Lymphocytes # (Manual) 0.27 L (1.0-4.8) k/uL Blast Cells # (Man) 0.54 H (0) k/uL Nucleated RBCs 1 H (0-0) /100 WBC Macrocytosis Marked A Chloride 108 H (98-107) mmol/L Glucose 133 H (74-99) mg/dL AST 124 H (17-59) U/L Total Protein 6.0 L (6.3-8.2) g/dL Assessment and Plan Plan: AML (acute myeloid leukemia) Narrative/Plan: - The patient is status post induction treatment with the 7+3 regimen. Unfortunetly he is here requiring re-duction - Monitor labs daily - GOod supportive care Current Visit: No Status: Acute Priority: High Code(s): C92.00 - ACUTE MYELOBLASTIC LEUKEMIA, NOT HAVING ACHIEVED REMISSION SNOMED Code(s): 96584004 Pancytopenia due to antineoplastic chemotherapy Narrative/Plan: - His counts are in a safe range from the hematology standpoint. - Transfuse, if needed, to keep hemoglobin greater than 7, and platelets greater than 10,000 unless the patient has active bleeding. - Only irradiated products to be transfused - Monitor CBC Daily Current Visit: No Status: Acute Code(s): D61.810 - ANTINEOPLASTIC CHEMOTHERAPY INDUCED PANCYTOPENIA; T45.1X5A - ADVERSE EFFECT OF ANTINEOPLASTIC AND IMMUNOSUP DRUGS, INIT SNOMED Code(s): 658033475861523 Continue Day 3 of chemo Daily Labs Add Bowel Regimen Likely will require transfusion tomorrow Physician Attest: I have completed the full history and physical and agree with above dictation, dictated as a ascribe
[2021-04-04] MEDS: IDARUBICIN HCL IV SCH ×2 (15:56)
[2021-04-04] MEDS: ACETAMINOPHEN TAB 325 MG TAB PO PRN (16:50)
--- NOTE | 2021-04-04 17:41 | XR ---
EXAMINATION TYPE: XR chest 1V portable DATE OF EXAM: 04/04/2021 COMPARISON: 04/02/2021 HISTORY: Chest pain TECHNIQUE: Single view FINDINGS: Heart and mediastinum are normal. Lungs are clear. Diaphragm is normal. Bony thorax is inta ct. IMPRESSION: Normal chest. No change.
[2021-04-04] MEDS: SODIUM CHLORIDE 0.9% IV SCH ×2 (18:13→23:07)
[2021-04-04] MEDS: FLUDARABINE PHOSPHATE IV SCH (18:13)
[2021-04-04] MEDS: ATORVASTATIN 20 MG TAB PO SCH (20:04)
[2021-04-04] MEDS: LEVOFLOXACIN 500 MG TAB PO SCH (20:04)
[2021-04-04] MEDS: FLUCONAZOLE 100 MG TAB PO SCH (20:04)
--- NOTE | 2021-04-04 20:12 | P.PN ---
Progress Note - Text Progress Note Date: 04/04/21 Presenting complaint: AML-reduction Interval history: Patient is getting chemotherapy for AML. Reinduction. Cytarabine, fludarabine, April 04: Sitting up in a chair. No nausea vomiting. Oral intake good. No skin changes. No respiratory symptoms. at the bedside. Review of systems: Was done for constitutional, cardiovascular, GI, pulmonary. relevant finding as above Active Medications Acetaminophen (Acetaminophen Tab 325 Mg Tab) 650 mg PO Q6HR PRN PRN Reason: Fever and/ or Pain Last Admin: 04/04/21 16:50 Dose: 650 mg Documented by: Acyclovir (Acyclovir 200 Mg Cap) 400 mg PO BID [facility] [place] Last Admin: 04/04/21 20:04 Dose: 400 mg Documented by: Atorvastatin Calcium (Atorvastatin 20 Mg Tab) [address] [facility] Last Admin: 04/04/21 20:04 Dose: 20 mg Documented by: Chlorhexidine Gluconate (Chlorhexidine Gluconate 15 Ml Cup) 15 ml MUCOUS MEM DA OSIEL [facility] [place] Last Admin: 04/04/21 09:00 Dose: 15 ml Documented by: Cholecalciferol (Cholecalciferol 25 Mcg (1000 Iu) Tablet) 50 mcg PO DAILY [facility] [place] Last Admin: 04/04/21 09:00 Dose: 50 mcg Documented by: Filgrastim-Sndz (Filgrastim-Sndz 480 Mcg/0.8 Ml Syringe) 480 mcg SQ DAILY@1200 [facility] [place] Stop: 04/06/21 12:01 Last Admin: 04/04/21 13:01 Dose: 480 mcg Documented by: Fluconazole (Fluconazole 100 Mg Tab) [address] [facility] Last Admin: 04/04/21 20:04 Dose: 100 mg Documented by: Folic Acid (Folic Acid 1 Mg Tab) 1 mg PO DAILY [facility] [place] Last Admin: 04/04/21 09:00 Dose: 1 mg Documented by: Cytarabine 4,000 mg/Cytarabine 700 mg/ Sodium Chloride 575 mls @ 143.75 mls/hr IV Q24H [facility] [place] Stop: 04/07/21 02:59 Last Admin: 04/03/21 20:53 Dose: 143.75 mls/hr Documented by: Ondansetron HCl 16 mg/ Sodium (Chloride) 58 mls @ 232 mls/hr IVPB Q24H [facility] [place] Stop: 04/06/21 11:14 Last Admin: 04/04/21 15:29 Dose: 232 mls/hr Documented by: Fludarabine Phosphate 70 mg/ (Sodium Chloride) 100 mls @ 200 mls/hr IV Q24H [facility] [place] Stop: 04/06/21 19:29 Last Admin: 04/04/21 18:13 Dose: 200 mls/hr Documented by: Sodium Chloride (Saline 0.9%) 1,000 mls @ 75 mls/hr IV .[id number] [facility] [place] Last Admin: 04/04/21 09:15 Dose: 75 mls/hr Documented by: Levofloxacin (Levofloxacin 500 Mg Tab) 500 mg PO HS [facility] [place] Last Admin: 04/04/21 20:04 Dose: 500 mg Documented by: Loratadine (Loratadine 10 Mg Tab) 10 mg PO DAILY [facility] [place] Last Admin: 04/04/21 09:00 Dose: 10 mg Documented by: Lorazepam (Lorazepam 2 Mg/Ml Inj) 0.5 mg IV Q6HR PRN PRN Reason: Anxiety Metoprolol Succinate (Metoprolol Succinate (Er) 25 Mg Tab.Er.24h) 25 mg PO DAILY [facility] [place] Last Admin: 04/04/21 09:00 Dose: 25 mg Documented by: Nitroglycerin (Nitroglycerin Sl Tabs 0.4 Mg Tab) 0.4 mg SUBLINGUAL Q5M PRN PRN Reason: Chest Pain Nystatin (Nystatin 100,000 Unit/Ml Susp 500,000 Unit/5 Ml Cup) 500,000 unit PO QID [facility] [place] Last Admin: 04/04/21 18:47 Dose: 500,000 unit Documented by: Ondansetron HCl (Ondansetron 4 Mg/2 Ml Vial) 4 mg IVP Q6HR PRN PRN Reason: Nausea And Vomiting Pantoprazole Sodium (Pantoprazole 40 Mg Tablet) 40 mg PO AC-BID [facility] [place] Last Admin: 04/04/21 16:50 Dose: 40 mg Documented by: Prednisolone Acetate (Prednisolone Acetate 1% Ophth Drops 5 Ml Btl) 1 drops BOTH EYES QID [facility] [place] Last Admin: 04/04/21 18:48 Dose: 1 drops Documented by: Prochlorperazine Edisylate (Prochlorperazine Inj 10 Mg/2 Ml Vial) 10 mg IVP Q6H PRN PRN Reason: Nausea And Vomiting Sodium Bicarbonate (Salt And Soda Mouthwash 1,000 Ml) 5 ml PO AC-TID [facility] Last Admin: 04/04/21 16:50 Dose: 5 ml Documented by: Sodium Bicarbonate (Salt And Soda Mouthwash 1,000 Ml) 5 ml PO BID PRN PRN Reason: CHEMO On examination: VITAL SIGNS: 98.8, 101, 19, 128/75, 100% room air GENERAL APPEARANCE: Sitting up in a chair, awake, comfortable HEENT: Normal external appearance of nose and ear. Oral cavity normal EYES: Pupils equal. Conjunctiva normal. NECK: JVD not raised. Mass not palpable. RESPIRATORY: Respiratory effort normal. Lungs clear to auscultation. CARDIOVASCULAR: First and second sounds normal. No edema. ABDOMEN: Soft. Liver and spleen not palpable. No tenderness. No mass palpable. PSYCHIATRY: Alert and oriented x3. Mood and affect normal. INVESTIGATIONS, reviewed in the clinical context: WBC 13.4 hemoglobin 7 platelets 29 blood cells 4% potassium 3.8 creatinine 0.68 uric acid 7.6 AST 124 ALT 19 Chest x-ray film personally reviewed by me-no infiltrates Assessment and plan: -Acute myeloid leukemia Patient status post induction treatment with 7+3 regimen. Patient is requiring reinduction -Bicytopenia due to antineoplastic chemotherapy Follow CBC closely. Daily CBC. -GERD Prilosec 40 mg twice a day -Hyperuricemia Follow closely Patient is on day 3 of chemotherapy. Follow closely. Discussed with the patient and . Thank you Dr. dimas
[2021-04-04] MEDS: CYTARABINE IV SCH (23:07)
[2021-04-05 07:51] LABS: Anisocytosis Moderate; HCT 20.9 % (39.0-53.0); Hypochromasia Marked; MCH 33.1 pg (25.0-35.0); MCHC 30.3 g/dL (31.0-37.0); MCV 109.4 fL (80.0-100.0); Macrocytosis Marked; Mean Platelet Volume 13.4; Poikilocytosis Moderate; RBC 1.91 m/uL (4.30-5.90); RDW 22.8 % (11.5-15.5); WBC 6.4 k/uL (3.8-10.6)
[2021-04-05 09:28] LABS: HGB 6.3 gm/dL (13.0-17.5)
[2021-04-05] MEDS: CHLORHEXIDINE GLUCONATE 15 ML CUP MUCOUS MEM SCH (09:52)
[2021-04-05] MEDS: NYSTATIN 100,000 UNIT/ML SUSP 500,000 UNIT/5 ML CUP PO SCH ×4 (09:52→21:25)
[2021-04-05] MEDS: FOLIC ACID 1 MG TAB PO SCH (09:52)
[2021-04-05] MEDS: SALT AND SODA MOUTHWASH 1,000 ML PO SCH ×3 (09:53→17:27)
[2021-04-05] MEDS: LORATADINE 10 MG TAB PO SCH (09:53)
[2021-04-05] MEDS: PANTOPRAZOLE 40 MG TABLET PO SCH ×2 (09:53→17:27)
[2021-04-05] MEDS: ACYCLOVIR 200 MG CAP PO SCH ×2 (09:53→21:24)
[2021-04-05] MEDS: METOPROLOL SUCCINATE (ER) 25 MG TAB.ER.24H PO SCH (09:53)
[2021-04-05] MEDS: CHOLECALCIFEROL 25 MCG (1000 IU) TABLET PO SCH (09:53)
[2021-04-05] MEDS: prednisoLONE ACETATE 1% OPHTH DROPS 5 ML BTL BOTH EYES SCH ×4 (09:54→21:25)
[2021-04-05] MEDS: FILGRASTIM-SNDZ 480 MCG/0.8 ML SYRINGE SQ SCH (13:09)
[2021-04-05 14:22] LABS: African American GFR (CKD) 161.6 (60.0-200.0); Albumin 3.6 g/dL (3.80-4.90); Albumin/Globulin Ratio 1.71 (1.60-3.17); Anion Gap 8.6 mmol/L (4.00-12.00); Carbon Dioxide 22.4 mmol/L (21.6-31.8); Globulin 2.1 g/dL (1.6-3.3); Magnesium 1.9 mg/dL (1.5-2.4); Non-African American GFR(CKD) 139.4 (60.0-200.0); Phosphorus 2.9 mg/dL (2.4-5.1); Potassium 4.2 mmol/L (3.5-5.5); Total Bilirubin 0.8 mg/dL (0.2-1.2); Total Protein 5.7 g/dL (6.2-8.2); Uric Acid 5.8 mg/dL (3.7-8.7)
[2021-04-05 15:01] LABS: Nucleated Red Blood Cells 0 /100 WBC (0-0); Plasma Cells # (M) 0.06 k/uL (0)
[2021-04-05 15:02] LABS: Total Cells Counted 200
[2021-04-05 15:08] LABS: Band Neutrophils % 1 %; Blast Cells # (M) 0.19 k/uL (0); Lymphocytes # (M) 0.26 k/uL (1.0-4.8); Neutrophils % (M) 93 %
[2021-04-05 15:11] LABS: Basophilic Stippling Present; Tear Drop Cells Present
[2021-04-05 15:15] LABS: Polychromasia Present
[2021-04-05 15:16] LABS: Platelet Count 20 k/uL (150-450)
[2021-04-05] MEDS: ONDANSETRON 16 MG in SODIUM CHLORIDE 0.9% 50 ML IVPB SCH (15:59)
--- NOTE | 2021-04-05 16:47 | P.PN ---
Subjective Progress Note Date: 04/05/21 Principal diagnosis: AML - Timed Re-induction Febrile 04/04 100.6, no fever since. Full zapata cultures Hemoglobin 6.3, T and C and transfuse today Objective - Vital Signs Vital signs: Vital Signs Temp 99.6 F 04/05/21 12:00 Pulse 104 H 04/05/21 12:00 Resp 17 04/05/21 12:00 BP 124/70 04/05/21 12:00 Pulse Ox 100 04/05/21 12:00 Intake & Output 04/04/21 04/05/21 04/05/21 18:59 06:59 18:59 Intake Total 2843 1250 120 Balance 2843 1250 120 Intake: Intake, IV Titration 923 1250 Amount Cytarabine/Pf 4,000 mg 500 Cytarabine/Pf 700 mg In Sodium Chloride 0.9% 500 ml 500 ml @ 143.75 mls/hr IV Q24H [facility] Rx#: [id number] IDArubicin HCL 20 mg 23 IDArubicin HCL 3 mg In Empty Syringe 1 syr @ 138 mls/hr IV Q24H [facility] Rx#: [id number] Sodium Chloride 0.9% 1, 900 750 000 ml @ 75 mls/hr IV . [id number] [facility] Rx#:[id number] Oral 1920 120 Other: Voiding Method Toilet # Voids 5 - Exam - Constitutional General appearance: no acute distress - EENT Eyes: EOMI, PERRLA ENT: hearing grossly normal, normal oropharynx - Neck Neck: no lymphadenopathy Thyroid: bilateral: normal size - Respiratory Respiratory: bilateral: CTA - Cardiovascular Rhythm: regular Heart sounds: normal: S1, S2 - Gastrointestinal General gastrointestinal: normal bowel sounds, soft - Integumentary Integumentary: normal - Neurologic Neurologic: CNII-XII intact - Musculoskeletal Musculoskeletal: generalized weakness, strength equal bilaterally - Psychiatric Psychiatric: A&O x's 3, appropriate affect - Labs CBC & Chem 7: 04/05/21 07:02 04/05/21 07:02 Labs: Abnormal Lab Results - Last 24 Hours (Table) 04/05/21 04/05/21 Range/Units 07:02 11:21 RBC 1.91 L (4.30-5.90) m/uL Hgb 6.3 L* (13.0-17.5) gm/dL Hct 20.9 L (39.0-53.0) % MCV 109.4 H (80.0-100.0) fL MCHC 30.3 L (31.0-37.0) g/dL RDW 22.8 H (11.5-15.5) % Macrocytosis Marked A Crossmatch See Detail Microbiology - Last 24 Hours (Table) 04/04/21 17:50 Urine Culture - Preliminary Urine,Voided Assessment and Plan Plan: AML (acute myeloid leukemia) Narrative/Plan: - The patient is status post induction treatment with the 7+3 regimen. Unfortunetly he is here requiring re-duction - Monitor labs daily - GOod supportive care Current Visit: No Status: Acute Priority: High Code(s): C92.00 - ACUTE MYELOBLASTIC LEUKEMIA, NOT HAVING ACHIEVED REMISSION SNOMED Code(s): 62870815 Pancytopenia due to antineoplastic chemotherapy Narrative/Plan: - His counts are in a safe range from the hematology standpoint. - Transfuse, if needed, to keep hemoglobin greater than 7, and platelets greater than 10,000 unless the patient has active bleeding. - Only irradiated products to be transfused - Monitor CBC Daily Current Visit: No Status: Acute Code(s): D61.810 - ANTINEOPLASTIC CHEMOTHERAPY INDUCED PANCYTOPENIA; T45.1X5A - ADVERSE EFFECT OF ANTINEOPLASTIC AND IMMUNOSUP DRUGS, INIT SNOMED Code(s): 245694187976920 Continue Day 4 of chemo Daily Labs Bowel Regimen Transfuse today
[2021-04-05] MEDS: SODIUM CHLORIDE 0.9% IV SCH ×2 (17:21→21:58)
[2021-04-05] MEDS: FLUDARABINE PHOSPHATE IV SCH (17:21)
[2021-04-05] MEDS: SODIUM CHLORIDE 0.9% 1,000 ML IV SCH (17:28)
[2021-04-05] MEDS: LEVOFLOXACIN 500MG-D5W PMX 500 MG in DEXTROSE/WATER 1 100ML.BAG IVPB SCH (19:58)
[2021-04-05] MEDS: FLUCONAZOLE 100 MG TAB PO SCH (21:24)
[2021-04-05] MEDS: ATORVASTATIN 20 MG TAB PO SCH (21:24)
[2021-04-05] MEDS: CYTARABINE IV SCH (21:58)
--- NOTE | 2021-04-05 22:50 | P.PN ---
Progress Note - Text Progress Note Date: 04/05/21 Presenting complaint: AML-reinduction Interval history: Patient is getting chemotherapy for AML. Reinduction. Cytarabine, fludarabine, April 04: Sitting up in a chair. No nausea vomiting. Oral intake good. No skin changes. No respiratory symptoms. at the bedside. April 05: 24 off chemotherapy. Oral intake good. In and about. Some drop in blood counts. No dermatological or GI or respiratory or cardiac symptoms. Review of systems: Was done for constitutional, cardiovascular, GI, pulmonary. relevant finding as above Active Medications Acetaminophen (Acetaminophen Tab 325 Mg Tab) 650 mg PO Q6HR PRN PRN Reason: Fever and/ or Pain Last Admin: 04/04/21 16:50 Dose: 650 mg Documented by: Acyclovir (Acyclovir 200 Mg Cap) 400 mg PO BID [facility] Last Admin: 04/05/21 21:24 Dose: 400 mg Documented by: Atorvastatin Calcium (Atorvastatin 20 Mg Tab) 20 mg PO [facility] Last Admin: 04/05/21 21:24 Dose: 20 mg Documented by: Chlorhexidine Gluconate (Chlorhexidine Gluconate 15 Ml Cup) 15 ml MUCOUS MEM DAILY [facility] Last Admin: 04/05/21 09:52 Dose: 15 ml Documented by: Cholecalciferol (Cholecalciferol 25 Mcg (1000 Iu) Tablet) 50 mcg PO DAILY [facility] Last Admin: 04/05/21 09:53 Dose: 50 mcg Documented by: Filgrastim-Sndz (Filgrastim-Sndz 480 Mcg/0.8 Ml Syringe) 480 mcg SQ DAILY@1200 [facility] Stop: 04/06/21 12:01 Last Admin: 04/05/21 13:09 Dose: 480 mcg Documented by: Fluconazole (Fluconazole 100 Mg Tab) 100 mg PO [facility] Last Admin: 04/05/21 21:24 Dose: 100 mg Documented by: Folic Acid (Folic Acid 1 Mg Tab) 1 mg PO DAILY [facility] Last Admin: 04/05/21 09:52 Dose: 1 mg Documented by: Cytarabine 4,000 mg/Cytarabine 700 mg/ Sodium Chloride 575 mls @ 143.75 mls/hr IV Q24H [facility] Stop: 04/07/21 02:59 Last Admin: 04/05/21 21:58 Dose: 143.75 mls/hr Documented by: Ondansetron HCl 16 mg/ Sodium (Chloride) 58 mls @ 232 mls/hr IVPB Q24H [facility] Stop: 04/06/21 11:14 Last Admin: 04/05/21 15:59 Dose: 232 mls/hr Documented by: Fludarabine Phosphate 70 mg/ (Sodium Chloride) 100 mls @ 200 mls/hr IV Q24H [facility] Stop: 04/06/21 19:29 Last Admin: 04/05/21 17:21 Dose: 200 mls/hr Documented by: Sodium Chloride (Saline 0.9%) 1,000 mls @ 75 mls/hr IV .[id number] [facility] Last Admin: 04/05/21 17:28 Dose: 75 mls/hr Documented by: Levofloxacin 500 mg/ IV (Solution) 100 mls @ 100 mls/hr IVPB Q24H [facility] Last Admin: 04/05/21 19:58 Dose: 100 mls/hr Documented by: Loratadine (Loratadine 10 Mg Tab) 10 mg PO DAILY [facility] Last Admin: 04/05/21 09:53 Dose: 10 mg Documented by: Lorazepam (Lorazepam 2 Mg/Ml Inj) 0.5 mg IV Q6HR PRN PRN Reason: Anxiety Metoprolol Succinate (Metoprolol Succinate (Er) 25 Mg Tab.Er.24h) 25 mg PO DAILY [facility] Last Admin: 04/05/21 09:53 Dose: 25 mg Documented by: Nitroglycerin (Nitroglycerin Sl Tabs 0.4 Mg Tab) 0.4 mg SUBLINGUAL Q5M PRN PRN Reason: Chest Pain Nystatin (Nystatin 100,000 Unit/Ml Susp 500,000 Unit/5 Ml Cup) 500,000 unit PO QID [facility] Last Admin: 04/05/21 21:25 Dose: 500,000 unit Documented by: Ondansetron HCl (Ondansetron 4 Mg/2 Ml Vial) 4 mg IVP Q6HR PRN PRN Reason: Nausea And Vomiting Pantoprazole Sodium (Pantoprazole 40 Mg Tablet) 40 mg PO AC-BID [facility] Last Admin: 04/05/21 17:27 Dose: 40 mg Documented by: Prednisolone Acetate (Prednisolone Acetate 1% Ophth Drops 5 Ml Btl) 1 drops BOTH EYES QID [facility] Last Admin: 04/05/21 21:25 Dose: 1 drops Documented by: Prochlorperazine Edisylate (Prochlorperazine Inj 10 Mg/2 Ml Vial) 10 mg IVP Q6H PRN PRN Reason: Nausea And Vomiting Sodium Bicarbonate (Salt And Soda Mouthwash 1,000 Ml) 5 ml PO AC-TID [facility] Last Admin: 04/05/21 17:27 Dose: 5 ml Documented by: Sodium Bicarbonate (Salt And Soda Mouthwash 1,000 Ml) 5 ml PO BID PRN PRN Reason: CHEMO On examination: VITAL SIGNS: 99.2, 105, 17, 111/61, 100% room air GENERAL APPEARANCE: Sitting up in a chair, awake, comfortable HEENT: Normal external appearance of nose and ear. Oral cavity normal EYES: Pupils equal. Conjunctiva normal. NECK: JVD not raised. Mass not palpable. RESPIRATORY: Respiratory effort normal. Lungs clear to auscultation. CARDIOVASCULAR: First and second sounds normal. No edema. ABDOMEN: Soft. Liver and spleen not palpable. No tenderness. No mass palpable. PSYCHIATRY: Alert and oriented x3. Mood and affect normal. INVESTIGATIONS, reviewed in the clinical context: April 05: White count 6.4 hemoglobin 6.3 platelets 20 blast cells 3% potassium 4.2 creatinine 0.5 uric acid 5.8 LDH 2474 WBC 13.4 hemoglobin 7 platelets 29 blood cells 4% potassium 3.8 creatinine 0.68 uric acid 7.6 AST 124 ALT 19 Chest x-ray film personally reviewed by me-no infiltrates Assessment and plan: -Acute myeloid leukemia Patient status post induction treatment with 7+3 regimen. Patient is requiring reinduction -Bicytopenia due to antineoplastic chemotherapy Follow CBC closely. Daily CBC. -GERD Prilosec 40 mg twice a day -Hyperuricemia Follow closely Patient is on day 4 of chemotherapy. Follow closely. PRBC was ordered. Thank you Dr. dimas
[2021-04-06] MEDS: SODIUM CHLORIDE 0.9% 1,000 ML IV SCH ×2 (03:09→08:54)
[2021-04-06 05:45] LABS: Anisocytosis Moderate; HCT 21.1 % (39.0-53.0); Hypochromasia Marked; MCH 33.4 pg (25.0-35.0); MCHC 31.7 g/dL (31.0-37.0); MCV 105.5 fL (80.0-100.0); Macrocytosis Marked; Mean Platelet Volume 12.8; Poikilocytosis Moderate; RDW 23.3 % (11.5-15.5); WBC 2.1 k/uL (3.8-10.6)
[2021-04-06 06:12] LABS: ALT 15 U/L (4-49); AST 39 U/L (17-59); African American GFR (CKD) >90 (>60 ml/min/1.73 sqM); Albumin 3.4 g/dL (3.5-5.0); Albumin/Globulin Ratio 1.4; Alkaline Phosphatase 90 U/L (38-126); Anion Gap 5 mmol/L; Blood Urea Nitrogen 12 mg/dL (9-20); Calcium 8.3 mg/dL (8.4-10.2); Carbon Dioxide 25 mmol/L (22-30); Chloride 107 mmol/L (98-107); Globulin 2.4 g/dL; Glucose 108 mg/dL (74-99); Magnesium 2.1 mg/dL (1.6-2.3); Non-African American GFR(CKD) >90 (>60 ml/min/1.73 sqM); Phosphorus 3.1 mg/dL (2.5-4.5); Potassium 4.3 mmol/L (3.5-5.1); Sodium 137 mmol/L (137-145); Total Bilirubin 0.7 mg/dL (0.2-1.3); Total Protein 5.8 g/dL (6.3-8.2); Uric Acid 3.7 mg/dL (3.5-8.5)
[2021-04-06 06:13] LABS: HGB 6.7 gm/dL (13.0-17.5)
[2021-04-06 06:15] LABS: Platelet Count 15 k/uL (150-450)
[2021-04-06 07:17] LABS: LDH 4489 U/L (313-618)
[2021-04-06] MEDS: FOLIC ACID 1 MG TAB PO SCH (08:44)
[2021-04-06] MEDS: LORATADINE 10 MG TAB PO SCH (08:44)
[2021-04-06] MEDS: CHOLECALCIFEROL 25 MCG (1000 IU) TABLET PO SCH (08:44)
[2021-04-06] MEDS: METOPROLOL SUCCINATE (ER) 25 MG TAB.ER.24H PO SCH (08:45)
[2021-04-06] MEDS: ACYCLOVIR 200 MG CAP PO SCH ×2 (08:45→20:33)
[2021-04-06] MEDS: NYSTATIN 100,000 UNIT/ML SUSP 500,000 UNIT/5 ML CUP PO SCH ×4 (08:45→20:33)
[2021-04-06] MEDS: SALT AND SODA MOUTHWASH 1,000 ML PO SCH ×3 (08:45→17:46)
[2021-04-06] MEDS: PANTOPRAZOLE 40 MG TABLET PO SCH ×2 (08:45→17:45)
[2021-04-06] MEDS: CHLORHEXIDINE GLUCONATE 15 ML CUP MUCOUS MEM SCH (08:45)
[2021-04-06] MEDS: prednisoLONE ACETATE 1% OPHTH DROPS 5 ML BTL BOTH EYES SCH ×4 (08:45→20:33)
[2021-04-06 09:30] LABS: Lymphocytes # (M) 0.02 k/uL (1.0-4.8); Metamyelocytes # (M) 0.02 k/uL (0); Metamyelocytes % 1 %; Monocytes # (M) 0.02 k/uL (0-1.0); Neutrophils # (M) 2.04 k/uL (1.3-7.7); Neutrophils % (M) 97 %; Nucleated Red Blood Cells 0 /100 WBC (0-0); Total Cells Counted 100
[2021-04-06 09:31] LABS: Tear Drop Cells Present
[2021-04-06] MEDS ORDERED: LACTULOSE 20 GM/30 ML CUP PO ONE (11:05)
[2021-04-06] MEDS: FILGRASTIM-SNDZ 480 MCG/0.8 ML SYRINGE SQ SCH (11:52)
[2021-04-06] MEDS: ONDANSETRON 16 MG in SODIUM CHLORIDE 0.9% 50 ML IVPB SCH (15:52)
[2021-04-06] MEDS: FLUDARABINE PHOSPHATE IV SCH (17:27)
[2021-04-06] MEDS: SODIUM CHLORIDE 0.9% IV SCH ×2 (17:27→22:44)
[2021-04-06] MEDS: LEVOFLOXACIN 500MG-D5W PMX 500 MG in DEXTROSE/WATER 1 100ML.BAG IVPB SCH (19:50)
[2021-04-06] MEDS: ATORVASTATIN 20 MG TAB PO SCH (20:33)
[2021-04-06] MEDS: FLUCONAZOLE 100 MG TAB PO SCH (20:33)
--- NOTE | 2021-04-06 21:44 | P.PN ---
Subjective Progress Note Date: 04/06/21 Principal diagnosis: AML - Timed Re-induction He has done will with re-induction, TMS did note a 5 sec V-tach recorded, patient asymptomatic however unknown if true abnormality of artifactorial cardiology has been asked to evaluate Hemoglobin 6.7 and transfusion ordered Repeat CBC for am along with daily lab monitored ordered. He has some rasshing to bilateral forearms Objective - Vital Signs Vital signs: Vital Signs Temp 100.0 F H 04/06/21 08:00 Pulse 104 H 04/06/21 08:00 Resp 17 04/06/21 08:00 BP 119/74 04/06/21 08:00 Pulse Ox 98 04/06/21 08:00 Intake & Output 04/05/21 04/06/21 04/06/21 18:59 06:59 18:59 Intake Total 3280 1860 Balance 3280 1860 Intake: Intake, IV Titration 1050 1500 Amount Cytarabine/Pf 4,000 mg 500 Cytarabine/Pf 700 mg In Sodium Chloride 0.9% 500 ml 500 ml @ 143.75 mls/hr IV Q24H [facility] Rx#: [id number] Fludarabine Phosphate 70 100 mg In Sodium Chloride 0.9 % 100 ml @ 200 mls/hr IV Q24H [facility] Rx#:[id number] Levofloxacin 500Mg-D5w 100 Pmx 500 mg In Dextrose/ Water 1 100ml.bag @ 100 mls/hr IVPB Q24H [facility] Rx#: [id number] Ondansetron 16 mg In 50 Sodium Chloride 0.9% 50 ml @ 232 mls/hr IVPB Q24H [facility] Rx#:[id number] Sodium Chloride 0.9% 1, 900 900 000 ml @ 75 mls/hr IV . [id number] [facility] Rx#:[id number] Oral 1920 360 Blood Product 310 Rc Irr As1 Unit 310 [id number] Other: Voiding Method Toilet # Voids 1 - Exam - Constitutional General appearance: no acute distress - EENT Eyes: EOMI, PERRLA ENT: hearing grossly normal, normal oropharynx - Neck Neck: no lymphadenopathy Thyroid: bilateral: normal size - Respiratory Respiratory: bilateral: CTA - Cardiovascular Rhythm: regular Heart sounds: normal: S1, S2 - Gastrointestinal General gastrointestinal: normal bowel sounds, soft - Integumentary Integumentary: normal - Neurologic Neurologic: CNII-XII intact - Musculoskeletal Musculoskeletal: generalized weakness, strength equal bilaterally - Psychiatric Psychiatric: A&O x's 3, appropriate affect - Labs CBC & Chem 7: 04/06/21 05:06 04/06/21 05:06 Labs: Abnormal Lab Results - Last 24 Hours (Table) 04/05/21 04/05/21 04/05/21 Range/Units 07:02 07:02 11:21 WBC (3.8-10.6) k/uL RBC (4.30-5.90) m/uL Hgb (13.0-17.5) gm/dL Hct (39.0-53.0) % MCV (80.0-100.0) fL RDW (11.5-15.5) % Plt Count 20 L (150-450) k/uL Blast Cells % 3 H* % Lymphocytes # (Manual) 0.26 L (1.0-4.8) k/uL Metamyelocytes # (Man) (0) k/uL Blast Cells # (Man) 0.19 H (0) k/uL Plasma Cell # (Manual) 0.06 H (0) k/uL Macrocytosis Creatinine 0.5 L (0.6-1.5) mg/dL BUN/Creatinine Ratio 30.00 H (12.00-20.00) Ratio Glucose (74-99) mg/dL Calcium 8.0 L (8.7-10.3) mg/dL AST 57 H (14-35) U/L Lactate Dehydrogenase 2474 H (120-246) U/L Total Protein 5.7 L (6.2-8.2) g/dL Albumin 3.60 L (3.80-4.90) g/dL Crossmatch See Detail 04/06/21 04/06/21 Range/Units 05:06 05:06 WBC 2.1 L (3.8-10.6) k/uL RBC 2.00 L (4.30-5.90) m/uL Hgb 6.7 L* (13.0-17.5) gm/dL Hct 21.1 L (39.0-53.0) % MCV 105.5 H (80.0-100.0) fL RDW 23.3 H (11.5-15.5) % Plt Count 15 L* (150-450) k/uL Blast Cells % % Lymphocytes # (Manual) 0.02 L (1.0-4.8) k/uL Metamyelocytes # (Man) 0.02 H (0) k/uL Blast Cells # (Man) (0) k/uL Plasma Cell # (Manual) (0) k/uL Macrocytosis Marked A Creatinine 0.53 L (0.6-1.5) mg/dL BUN/Creatinine Ratio (12.00-20.00) Ratio Glucose 108 H (74-99) mg/dL Calcium 8.3 L (8.7-10.3) mg/dL AST (14-35) U/L Lactate Dehydrogenase 4489 H (120-246) U/L Total Protein 5.8 L (6.2-8.2) g/dL Albumin 3.4 L (3.80-4.90) g/dL Crossmatch Microbiology - Last 24 Hours (Table) 04/04/21 17:42 Blood Culture - Preliminary Blood No Growth after 24 hours 04/04/21 17:50 Urine Culture - Final Urine,Voided 04/04/21 17:33 Blood Culture - Preliminary Blood No Growth after 24 hours Assessment and Plan Plan: AML (acute myeloid leukemia) Narrative/Plan: - The patient is status post induction treatment with the 7+3 regimen. Unfortunetly he is here requiring re-duction - Monitor labs daily - GOod supportive care Current Visit: No Status: Acute Priority: High Code(s): C92.00 - ACUTE MYELOBLASTIC LEUKEMIA, NOT HAVING ACHIEVED REMISSION SNOMED Code(s): 54379810 Pancytopenia due to antineoplastic chemotherapy Narrative/Plan: - His counts are in a safe range from the hematology standpoint. - Transfuse, if needed, to keep hemoglobin greater than 7, and platelets greater than 10,000 unless the patient has active bleeding. - Only irradiated products to be transfused - Monitor CBC Daily Current Visit: No Status: Acute Code(s): D61.810 - ANTINEOPLASTIC CHEMOTHERAPY INDUCED PANCYTOPENIA; T45.1X5A - ADVERSE EFFECT OF ANTINEOPLASTIC AND IMMUNOSUP DRUGS, INIT SNOMED Code(s): 921108915539464 Continue Day 5 of chemo Daily Labs Cardiology to evaluate regarding TMS record of 5 sec V-Tach Transfuse today Physician Attest: I have completed the full history and physical and agree with above dictation, dictated as a scribe
[2021-04-06] MEDS ORDERED: ADENOSINE 3 MG/ML 2 ML VIAL IVP STA (21:56)
--- NOTE | 2021-04-06 22:23 | P.PN ---
Progress Note - Text Progress Note Date: 04/06/21 Presenting complaint: AML-reinduction Interval history: Patient is getting chemotherapy for AML. Reinduction. Cytarabine, fludarabine, April 04: Sitting up in a chair. No nausea vomiting. Oral intake good. No skin changes. No respiratory symptoms. at the bedside. April 05: Day 4 of chemotherapy. Oral intake good. In and about. Some drop in blood counts. No dermatological or GI or respiratory or cardiac symptoms. Given 1 unit of PRBC April 06: Up and about in the hallway. Wanting a laxative for a good bowel movement. Did have a small 1 earlier. Breathing stable. No new symptoms. Decrease in hemoglobin and platelets. Review of systems: Was done for constitutional, cardiovascular, GI, pulmonary. relevant finding as above Active Medications Acetaminophen (Acetaminophen Tab 325 Mg Tab) 650 mg PO Q6HR PRN PRN Reason: Fever and/ or Pain Last Admin: 04/04/21 16:50 Dose: 650 mg Documented by: Acyclovir (Acyclovir 200 Mg Cap) 400 mg PO BID [facility] Last Admin: 04/06/21 20:33 Dose: 400 mg Documented by: Atorvastatin Calcium (Atorvastatin 20 Mg Tab) 20 mg PO [facility] Last Admin: 04/06/21 20:33 Dose: 20 mg Documented by: Chlorhexidine Gluconate (Chlorhexidine Gluconate 15 Ml Cup) 15 ml MUCOUS MEM DAILY [facility] Last Admin: 04/06/21 08:45 Dose: 15 ml Documented by: Cholecalciferol (Cholecalciferol 25 Mcg (1000 Iu) Tablet) 50 mcg PO DAILY [facility] Last Admin: 04/06/21 08:44 Dose: 50 mcg Documented by: Fluconazole (Fluconazole 100 Mg Tab) 100 mg PO HS [facility] Last Admin: 04/06/21 20:33 Dose: 100 mg Documented by: Folic Acid (Folic Acid 1 Mg Tab) 1 mg PO DAILY [facility] Last Admin: 04/06/21 08:44 Dose: 1 mg Documented by: Cytarabine 4,000 mg/Cytarabine 700 mg/ Sodium Chloride 575 mls @ 143.75 mls/hr IV Q24H [facility] Stop: 04/07/21 02:59 Last Admin: 04/05/21 21:58 Dose: 143.75 mls/hr Documented by: Sodium Chloride (Saline 0.9%) 1,000 mls @ 75 mls/hr IV .[id number] [facility] Last Admin: 04/06/21 08:54 Dose: 75 mls/hr Documented by: Levofloxacin 500 mg/ IV (Solution) 100 mls @ 100 mls/hr IVPB Q24H [facility] Last Admin: 04/06/21 19:50 Dose: 100 mls/hr Documented by: Diltiazem HCl 125 mg/ Sodium (Chloride) 125 mls @ 10 mls/hr IV .[id number] [facility] Loratadine (Loratadine 10 Mg Tab) 10 mg PO DAILY [facility] Last Admin: 04/06/21 08:44 Dose: 10 mg Documented by: Lorazepam (Lorazepam 2 Mg/Ml Inj) 0.5 mg IV Q6HR PRN PRN Reason: Anxiety Metoprolol Succinate (Metoprolol Succinate (Er) 25 Mg Tab.Er.24h) 25 mg PO DAILY [facility] Last Admin: 04/06/21 08:45 Dose: 25 mg Documented by: Nitroglycerin (Nitroglycerin Sl Tabs 0.4 Mg Tab) 0.4 mg SUBLINGUAL Q5M PRN PRN Reason: Chest Pain Nystatin (Nystatin 100,000 Unit/Ml Susp 500,000 Unit/5 Ml Cup) 500,000 unit PO QID [facility] Last Admin: 04/06/21 20:33 Dose: 500,000 unit Documented by: Ondansetron HCl (Ondansetron 4 Mg/2 Ml Vial) 4 mg IVP Q6HR PRN PRN Reason: Nausea And Vomiting Pantoprazole Sodium (Pantoprazole 40 Mg Tablet) 40 mg PO AC-BID [facility] Last Admin: 04/06/21 17:45 Dose: 40 mg Documented by: Prednisolone Acetate (Prednisolone Acetate 1% Ophth Drops 5 Ml Btl) 1 drops BOTH EYES QID [facility] Last Admin: 04/06/21 20:33 Dose: 1 drops Documented by: Prochlorperazine Edisylate (Prochlorperazine Inj 10 Mg/2 Ml Vial) 10 mg IVP Q6H PRN PRN Reason: Nausea And Vomiting Sodium Bicarbonate (Salt And Soda Mouthwash 1,000 Ml) 5 ml PO AC-TID [facility] Last Admin: 04/06/21 17:46 Dose: 5 ml Documented by: Sodium Bicarbonate (Salt And Soda Mouthwash 1,000 Ml) 5 ml PO BID PRN PRN Reason: CHEMO On examination: VITAL SIGNS: 99, 96, 17, 121/77, 90% room air GENERAL APPEARANCE: awake, comfortable HEENT: Normal external appearance of nose and ear. Oral cavity normal EYES: Pupils equal. Conjunctiva normal. NECK: JVD not raised. Mass not palpable. RESPIRATORY: Respiratory effort normal. Lungs clear to auscultation. CARDIOVASCULAR: First and second sounds normal. No edema. ABDOMEN: Soft. Liver and spleen not palpable. No tenderness. No mass palpable. PSYCHIATRY: Alert and oriented x3. Mood and affect normal. INVESTIGATIONS, reviewed in the clinical context: April 06: WBC 2.1 hemoglobin 6.7 platelets 15 potassium 4.3 creatinine 0.53 uric acid 3.7 LDH 4489 April 05: White count 6.4 hemoglobin 6.3 platelets 20 blast cells 3% potassium 4.2 creatinine 0.5 uric acid 5.8 LDH 2474 WBC 13.4 hemoglobin 7 platelets 29 blood cells 4% potassium 3.8 creatinine 0.68 uric acid 7.6 AST 124 ALT 19 Chest x-ray film personally reviewed by me-no infiltrates Assessment and plan: -Acute myeloid leukemia Patient status post induction treatment with 7+3 regimen. requiring reinduction -Bicytopenia due to antineoplastic chemotherapy: Slow to respond Received 1 unit of PRBC. Daily CBC. -GERD Prilosec 40 mg twice a day -Hyperuricemia Follow closely Patient is on day 5 of chemotherapy. Follow closely. Discussed with the patient. Follow with hematology Thank you Dr. dimas
[2021-04-06] MEDS: DILTIAZEM 125 MG in SODIUM CHLORIDE 0.9% 100 ML IV SCH (22:26)
[2021-04-06] MEDS: DILTIAZEM DRIP BOLUS FROM BAG 1 MG SOLN IV ONE ×2 (22:26→23:00)
--- NOTE | 2021-04-06 22:42 | P.EN ---
A team note 35 year old admitted for AML chemotherapy A team activated for SVT. heart rate in the 200s range, patient feels light headed. denies chest pain or trouble breathing. on exam BP 107/65, oxygen sat 95% lungs clear to auscultation heart tachycardia no leg edema bilaterally no carotid bruit bilaterally attempted vagal maneuvers , no improvement patient connected to access director with pads on , adenosin 6 mg given , showed background of afib wtih RVR, patient tolerated well. assessment SVT / Afib with RVR AML with pancytopenia plan start cardizem with bolus then drip , target HR<110 no anticoagulation due to thrombocytopenia 15 check K, Mg cardiology consult echocardiogram transfer to 3 S cardiac nurse Total amount of critical care time spent was 40 minutes not counting procedures performed.
[2021-04-06] MEDS: CYTARABINE IV SCH (22:44)
[2021-04-06 23:50] LABS: African American GFR (CKD) >90 (>60 ml/min/1.73 sqM); Anion Gap 5 mmol/L; Blood Urea Nitrogen 11 mg/dL (9-20); Calcium 8.5 mg/dL (8.4-10.2); Carbon Dioxide 23 mmol/L (22-30); Chloride 109 mmol/L (98-107); Glucose 111 mg/dL (74-99); Magnesium 2.1 mg/dL (1.6-2.3); Non-African American GFR(CKD) >90 (>60 ml/min/1.73 sqM); Potassium 3.8 mmol/L (3.5-5.1); Sodium 137 mmol/L (137-145)
[2021-04-07] MEDS: SODIUM CHLORIDE 0.9% 1,000 ML IV SCH (00:11)
[2021-04-07] MEDS ORDERED: VANCOMYCIN IV PER PHARMACY 1 EACH MISC MISCELLANE PRN (05:29)
[2021-04-07] MEDS: VANCOMYCIN 1,750 MG in SODIUM CHLORIDE 0.9% 500 ML 500 ML IVPB SCH ×3 (06:36→22:48)
[2021-04-07] MEDS: PANTOPRAZOLE 40 MG TABLET PO SCH ×2 (06:37→17:51)
[2021-04-07] MEDS: DILTIAZEM 125 MG in SODIUM CHLORIDE 0.9% 100 ML IV SCH (06:47)
[2021-04-07] MEDS: METOPROLOL SUCCINATE (ER) 25 MG TAB.ER.24H PO SCH (09:21)
[2021-04-07] MEDS: CHOLECALCIFEROL 25 MCG (1000 IU) TABLET PO SCH (09:21)
[2021-04-07] MEDS: LORATADINE 10 MG TAB PO SCH (09:21)
[2021-04-07] MEDS: NYSTATIN 100,000 UNIT/ML SUSP 500,000 UNIT/5 ML CUP PO SCH ×3 (09:22→17:52)
[2021-04-07] MEDS: FOLIC ACID 1 MG TAB PO SCH (09:22)
[2021-04-07] MEDS: prednisoLONE ACETATE 1% OPHTH DROPS 5 ML BTL BOTH EYES SCH ×4 (09:23→20:43)
[2021-04-07] MEDS: ACYCLOVIR 200 MG CAP PO SCH ×2 (09:49→20:44)
[2021-04-07] MEDS: CHLORHEXIDINE GLUCONATE 15 ML CUP MUCOUS MEM SCH (09:49)
[2021-04-07 10:58] LABS: Anisocytosis Moderate; HCT 21.7 % (39.0-53.0); HGB 7.1 gm/dL (13.0-17.5); Hypochromasia Moderate; MCH 32.7 pg (25.0-35.0); MCHC 32.9 g/dL (31.0-37.0); Macrocytosis Marked; Mean Platelet Volume 7.3; Poikilocytosis Moderate; RBC 2.18 m/uL (4.30-5.90)
[2021-04-07 11:00] LABS: Platelet Count 7 k/uL (150-450)
[2021-04-07 11:01] LABS: MCV 99.4 fL (80.0-100.0)
[2021-04-07 11:03] LABS: WBC 0.4 k/uL (3.8-10.6)
[2021-04-07 11:18] LABS: ALT 16 U/L (4-49); AST 29 U/L (17-59); African American GFR (CKD) >90 (>60 ml/min/1.73 sqM); Albumin 3.4 g/dL (3.5-5.0); Albumin/Globulin Ratio 1.4; Alkaline Phosphatase 83 U/L (38-126); Anion Gap 5 mmol/L; Blood Urea Nitrogen 11 mg/dL (9-20); Calcium 8.5 mg/dL (8.4-10.2); Carbon Dioxide 24 mmol/L (22-30); Chloride 109 mmol/L (98-107); Globulin 2.4 g/dL; Glucose 103 mg/dL (74-99); Non-African American GFR(CKD) >90 (>60 ml/min/1.73 sqM); Potassium 4.2 mmol/L (3.5-5.1); Sodium 138 mmol/L (137-145); Total Bilirubin 1.3 mg/dL (0.2-1.3); Total Protein 5.8 g/dL (6.3-8.2)
[2021-04-07 11:20] LABS: ALT 16 U/L (4-49); AST 29 U/L (17-59); African American GFR (CKD) >90 (>60 ml/min/1.73 sqM); Albumin 3.3 g/dL (3.5-5.0); Albumin/Globulin Ratio 1.3; Alkaline Phosphatase 84 U/L (38-126); Anion Gap 5 mmol/L; Blood Urea Nitrogen 11 mg/dL (9-20); Calcium 8.4 mg/dL (8.4-10.2); Carbon Dioxide 23 mmol/L (22-30); Chloride 110 mmol/L (98-107); Globulin 2.5 g/dL; Glucose 102 mg/dL (74-99); Magnesium 2.1 mg/dL (1.6-2.3); Non-African American GFR(CKD) >90 (>60 ml/min/1.73 sqM); Phosphorus 2.9 mg/dL (2.5-4.5); Potassium 4.3 mmol/L (3.5-5.1); Sodium 138 mmol/L (137-145); Total Bilirubin 1.2 mg/dL (0.2-1.3); Total Protein 5.8 g/dL (6.3-8.2); Uric Acid 3.3 mg/dL (3.5-8.5)
[2021-04-07 11:39] LABS: LDH 2919 U/L (313-618)
--- NOTE | 2021-04-07 12:57 | P.CRDCN ---
History of Present Illness Consult date: 04/07/21 Reason for Consult (text): SVT History of present illness: The patient is a 35-year-old male who is currently admitted to the hospital for acute myeloid leukemia chemotherapy reinduction. Cardiology was consulted for an episode of SVT with the patient required single dose of adenosine. The patient had just gotten up and ambulated to the restroom and when he returned and rolled over in the bed, he developed acute onset of palpitations where he "felt like his heart was jumping out of his chest." He attempted to sit up in the bed and became very dizzy, which resolved once he lied flat. A team was notified, where he received a single dose of adenosine and spontaneously converted back to sinus mechanism. The patient states he has no history of similar symptoms. The patient was interviewed and examined lying comfortably in bed. no current cardiac symptoms. Overall he states he feels well, but does admit to for some fatigue. No chest pain or chest pressure. No dizziness or lightheadedness when ambulating to the restroom. DIAGNOSTICS: EKG reviewed which shows AV donny reentrant tachycardia Overnight telemetry strips reviewed from hospitalization which also shows one run of NSVT from earlier in his hospitalization, as well as one brief episode of atrial fibrillation after AVNRT Previous chest x-ray unremarkable Laboratory data: WBC 0.4, hemoglobin 7.1, hematocrit 21.7, platelet 7, sodium 138, potassium 4.2, BUN 11, creatinine 0.60 magnesium 2.1, AST 29, ALT 16, TSH 1.2 Vital signs: Blood pressure 110/63, respiratory rate 20, pulse rate 108, temp 100.4, SpO2 97% on room air PAST MEDICAL HISTORY: Acute myeloid leukemia REVIEW OF SYSTEMS: No fever or chills. No cough or expectoration. No diaphoresis. Patient denies headache, dizziness, blurred vision, double vision. Patient denies any stomach discomfort. No nausea, vomiting. No hematochezia. No hematemesis. Denies any black stools or blood in his stools. Denies dysuria or hematuria. No muscle weakness or numbness. PHYSICAL EXAMINATION: This is a 35-year-old male in no apparent distress at the time of my examination. HEENT: Head is atraumatic, normocephalic. Pupils are equal, round. Sclerae anicteric. Conjunctivae are clear. Mucous membranes of the mouth are moist. Neck is supple. There is no jugular venous distention. No carotid bruit is heard. CHEST EXAMINATION: Lungs are clear to auscultation. No chest wall tenderness is noted on palpation or with deep breathing. HEART EXAMINATION: Heart regular rate and rhythm. S1, S2 heard. No murmurs, gal lops or rub. ABDOMEN: Soft, nontender. Bowel sounds are heard. No organomegaly noted. EXTREMITIES: 2+ peripheral pulses with no evidence of peripheral edema and no calf tenderness noted. NEUROLOGIC EXAMINATION: Patient is awake, alert and oriented x3. FINAL ASSESSMENT AND PLAN: Acute myeloid leukemia, reinduction chemotherapy AVNRT, new onset Atrial fibrillation, brief episode status post AVNRT NSVT PLAN: Transition the patient oral metoprolol 50 mg daily Discontinue Cardizem drip Outpatient follow-up for AVNRT ablation after bone marrow transplant The patient has been seen and evaluated. Plan of care has been reviewed and agreed upon by Dr York. Past Medical History Past Medical History: Cancer Additional Past Medical History / Comment(s): AML, anemia/low RBC, elevated WBC, recent root canal with infection being treated with abx, occasional back pain History of Any Multi-Drug Resistant Organisms: None Reported Past Surgical History: Tonsillectomy Additional Past Surgical History / Comment(s): BMA/biopsy, EGD, colonoscopy Past Anesthesia/Blood Transfusion Reactions: No Reported Reaction Smoking Status: Never smoker - Past Family History Mother Family Medical History: No Reported History Father Family Medical History: Osteoarthritis (OA) Medications and Allergies Home Medications Medication Instructions Recorded Confirmed Type Chlorhexidine Gluconate [Peridex] 15 ml PO DAILY 01/25/21 02/15/21 History Omeprazole [PriLOSEC] 40 mg PO BID 01/25/21 02/15/21 History Acyclovir [Zovirax] 400 mg PO BID #60 cap 02/02/21 02/15/21 Rx Ondansetron Odt [Zofran ODT] 4 mg PO Q6HR PRN #45 tab 02/02/21 02/15/21 Rx Cholecalciferol [Vitamin D3 (25 50 mcg PO DAILY #60 tablet 02/03/21 02/15/21 Rx Mcg = 1000 Iu)] Folic Acid 1 mg PO DAILY #30 tablet 02/03/21 02/15/21 Rx Nystatin 100,000 Unit/ml Susp 500,000 unit PO QID #360 ml 02/03/21 02/15/21 Rx [Mycostatin Oral Susp] Levofloxacin [Levaquin] 750 mg PO DAILY 02/15/21 02/15/21 History Loratadine [Claritin] 10 mg PO DAILY 02/15/21 02/15/21 History Atorvastatin [Lipitor] 20 mg PO HS #30 tab 02/16/21 Rx Metoprolol Succinate (ER) [Toprol 25 mg PO DAILY #30 tab.er.24h 02/16/21 Rx XL] Nitroglycerin Sl Tabs [Nitrostat] 0.4 mg SUBLINGUAL Q5M PRN #30 tab 02/16/21 Rx Allergies Allergy/AdvReac Type Severity Reaction Status Date / Time No Known Allergies Allergy Verified 04/01/21 11:19 Physical Exam Vitals: Vital Signs Temp Pulse Pulse Pulse Resp BP BP 04/07/21 08:05 100.4 F H 108 H 20 110/63 04/07/21 05:22 100.1 F H 103 H 16 92/57 04/07/21 04:52 99.7 F H 106 H 16 101/56 04/07/21 04:42 99.7 F H 104 H 16 104/51 04/07/21 04:00 100.3 F H 113 H 16 106/62 04/07/21 01:49 109 H 16 114/50 04/07/21 00:39 116 H 18 101/52 04/07/21 00:14 121 H 18 102/52 04/06/21 23:52 118 H 105/51 04/06/21 23:25 123 H 115/66 04/06/21 23:11 151 H 18 103/58 04/06/21 22:57 144 H 104/61 04/06/21 22:45 156 H 91/52 04/06/21 22:30 176 H 113/65 04/06/21 17:41 99.7 F H 107 H 16 123/70 04/06/21 16:00 98.1 F 110 H 17 131/74 04/06/21 15:59 98.1 F 110 H 17 131/74 Pulse Ox 04/07/21 08:05 04/07/21 05:22 97 04/07/21 04:52 98 04/07/21 04:42 98 04/07/21 04:00 98 04/07/21 01:49 100 04/07/21 00:39 99 04/07/21 00:14 100 04/06/21 23:52 100 04/06/21 23:25 04/06/21 23:11 98 04/06/21 22:57 04/06/21 22:45 100 04/06/21 22:30 100 04/06/21 17:41 100 04/06/21 16:00 100 04/06/21 15:59 100 Intake and Output 04/06/21 04/07/21 04/07/21 22:59 06:59 14:59 Intake Total 183.5 310 Output Total 800 Balance -616.5 310 Intake: Intake, IV Titration 183.5 Amount Diltiazem 125 mg In 83.5 Sodium Chloride 0.9% 100 ml @ 10 MG/HR 10 mls/hr IV .[id number] [facility] Rx#: [id number] Levofloxacin 500Mg-D5w 100 Pmx 500 mg In Dextrose/ Water 1 100ml.bag @ 100 mls/hr IVPB Q24H [facility] Rx#: [id number] Blood Product 0 310 Rc Irr As1 Unit 0 310 [id number] Output: Urine 800 Other: Voiding Method Toilet Toilet Urinal # Voids 3 1 Results 04/07/21 10:40 04/07/21 10:40 Cardiac Enzymes 04/07/21 04/07/21 Range/Units 10:40 10:40 AST 29 29 (17-59) U/L Lactate Dehydrogenase 2919 H (313-618) U/L CBC 04/07/21 Range/Units 10:40 WBC 0.4 L* (3.8-10.6) k/uL RBC 2.18 L (4.30-5.90) m/uL Hgb 7.1 L (13.0-17.5) gm/dL Hct 21.7 L (39.0-53.0) % Plt Count 7 L* D (150-450) k/uL Comprehensive Metabolic Panel 04/06/21 04/07/21 04/07/21 Range/Units 23:00 10:40 10:40 Sodium 137 138 138 (137-145) mmol/L Potassium 3.8 4.3 4.2 (3.5-5.1) mmol/L Chloride 109 H 110 H 109 H (98-107) mmol/L Carbon Dioxide 23 23 24 (22-30) mmol/L BUN 11 11 11 (9-20) mg/dL Creatinine 0.61 L 0.55 L 0.60 L (0.66-1.25) mg/dL Glucose 111 H 102 H 103 H (74-99) mg/dL Calcium 8.5 8.4 8.5 (8.4-10.2) mg/dL AST 29 29 (17-59) U/L ALT 16 16 (4-49) U/L Alkaline Phosphatase 84 83 (38-126) U/L Total Protein 5.8 L 5.8 L (6.3-8.2) g/dL Albumin 3.3 L 3.4 L (3.5-5.0) g/dL Current Medications Generic Name Dose Route Start Last Admin Trade Name Freq PRN Reason Stop Dose Admin Acetaminophen 650 mg 04/04/21 16:29 04/04/21 16:50 Acetaminophen Tab 325 Mg Tab PO 650 mg Q6HR PRN Administration Fever and/ or Pain Acyclovir 400 mg 04/02/21 21:00 04/07/21 09:49 Acyclovir 200 Mg Cap PO 400 mg BID [facility] Administration Atorvastatin Calcium 20 mg 04/02/21 21:00 04/06/21 20:33 Atorvastatin 20 Mg Tab PO 20 mg HS [facility] Administration Chlorhexidine Gluconate 15 ml 04/03/21 09:00 04/07/21 09:49 Chlorhexidine Gluconate 15 Ml Cup MUCOUS MEM 15 ml DAILY [facility] Administration Cholecalciferol 50 mcg 04/03/21 09:00 04/07/21 09:21 Cholecalciferol 25 Mcg (1000 Iu) Tablet PO 50 mcg DAILY [facility] Administration Fluconazole 100 mg 04/02/21 21:00 04/06/21 20:33 Fluconazole 100 Mg Tab PO 100 mg HS [facility] Administration Folic Acid 1 mg 04/03/21 09:00 04/07/21 09:22 Folic Acid 1 Mg Tab PO 1 mg DAILY [facility] Administration Sodium Chloride 1,000 mls @ 75 mls/hr 04/02/21 16:30 04/07/21 00:11 Saline 0.9% IV 75 mls/hr .[id number] [facility] Administration Levofloxacin 500 mg/ IV 100 mls @ 100 mls/hr 04/05/21 20:00 04/06/21 19:50 Solution IVPB 100 mls/hr Q24H [facility] Administration Vancomycin HCl 1,750 mg/ 500 mls @ 167 mls/hr 04/07/21 07:00 04/07/21 06:36 Sodium Chloride IVPB 167 mls/hr Q8H [facility] Administration Loratadine 10 mg 04/03/21 09:00 04/07/21 09:21 Loratadine 10 Mg Tab PO 10 mg DAILY [facility] Administration Lorazepam 0.5 mg 04/02/21 10:07 Lorazepam 2 Mg/Ml Inj IV Q6HR PRN Anxiety Metoprolol Succinate 25 mg 04/03/21 09:00 04/07/21 09:21 Metoprolol Succinate (Er) 25 Mg Tab.Er.24h PO 25 mg DAILY [facility] Administration Miscellaneous Information 1 each 04/07/21 05:29 Vancomycin Iv Per Pharmacy 1 Each Misc MISCELLANE DIRECTED PRN Per Protocol Protocol Nitroglycerin 0.4 mg 04/02/21 10:04 Nitroglycerin Sl Tabs 0.4 Mg Tab SUBLINGUAL Q5M PRN Chest Pain Nystatin 500,000 unit 04/02/21 13:00 04/07/21 09:22 Nystatin 100,000 Unit/Ml Susp 500,000 Unit/5 Ml Cup PO 500,000 unit QID [facility] Administration Ondansetron HCl 4 mg 04/02/21 10:07 Ondansetron 4 Mg/2 Ml Vial IVP Q6HR PRN Nausea And Vomiting Pantoprazole Sodium 40 mg 04/02/21 17:30 04/07/21 06:37 Pantoprazole 40 Mg Tablet PO 40 mg AC-BID [facility] Administration Prednisolone Acetate 1 drops 04/02/21 13:00 04/07/21 09:23 Prednisolone Acetate 1% Ophth Drops 5 Ml Btl BOTH EYES 1 drops QID [facility] Administration Prochlorperazine Edisylate 10 mg 04/02/21 10:07 Prochlorperazine Inj 10 Mg/2 Ml Vial IVP Q6H PRN Nausea And Vomiting Sodium Bicarbonate 5 ml 04/02/21 12:30 04/06/21 17:46 Salt And Soda Mouthwash 1,000 Ml PO 5 ml AC-TID [facility] Administration Sodium Bicarbonate 5 ml 04/02/21 09:00 Salt And Soda Mouthwash 1,000 Ml PO BID PRN CHEMO Intake and Output 04/06/21 04/07/21 04/07/21 22:59 06:59 14:59 Intake Total 183.5 310 Output Total 800 Balance -616.5 310 Intake: Intake, IV Titration 183.5 Amount Diltiazem 125 mg In 83.5 Sodium Chloride 0.9% 100 ml @ 10 MG/HR 10 mls/hr IV .[id number] [facility] Rx#: [id number] Levofloxacin 500Mg-D5w 100 Pmx 500 mg In Dextrose/ Water 1 100ml.bag @ 100 mls/hr IVPB Q24H [facility] Rx#: [id number] Blood Product 0 310 Rc Irr As1 Unit 0 310 [id number] Output: Urine 800 Other: Voiding Method Toilet Toilet Urinal # Voids 3 1 04/07/21 10:40 04/07/21 10:40
[2021-04-07] MEDS: SALT AND SODA MOUTHWASH 1,000 ML PO SCH ×2 (14:57→15:02)
--- NOTE | 2021-04-07 16:01 | ECHOF ---
Referral Reason:new afib with RVR MEASUREMENTS -------- HEIGHT: 180.3 cm WEIGHT: 109.3 kg BP: 104/51 IVSd: 1.4 cm (0.6 - 1.1) LVIDd: 3.7 cm (3.9 - 5.3) LVPWd: 1.6 cm (0.6 - 1.1) EDV(Teich): 58 ml IVSs: 1.8 cm LVIDs: 1.7 cm LVPWs: 1.9 cm %IVS Thck: 25 % ESV(Teich): 8 ml EF(Teich): 86 % %FS: 54 % SV(Teich): 49 ml RVIDd: 2.7 cm (< 3.3) TR Vmax: 2.66 m/s TR maxP.38 mmHg RAP: 5.00 mmHg RVSP: 33.38 mmHg FINDINGS -------- Limited Study The left ventricular size is normal. There is moderate concentric left ventricular hypertrophy. O verall left ventricular systolic function is normal with, an EF between 55 - 60 %. Lumason used There is no pericardial effusion. CONCLUSIONS -------- 1. The left ventricular size is normal. 2. There is moderate concentric left ventricular hypertrophy. 3. Overall left ventricular systolic function is normal with, an EF between 55 - 60 %. 4. There is no pericardial effusion. QUALITY CLOTH TESTER: Dennise Sahu [facility]
--- NOTE | 2021-04-07 16:46 | P.PN ---
Subjective Progress Note Date: 04/07/21 Events of last p.m. noted. After the patient was seen yesterday, he subsequently developed palpitations with a feeling that his "heart was "jump out of his chest" he also noted severe dizziness when he tried to get up. A team was called and the patient was found to be in SVT . He reported to normal sinus rhythm with 1 dose of adenosine. He was subsequently transferred to the cardiac floor. He has had no recurrence of symptoms since and has remained in an SR. He was evaluated by cardiology this a.m. and was diagnosed with AVNRT. He continues to have mildly itchy skin rash involving his upper chest and bilateral upper extremities. Objective - Vital Signs Vital signs: Vital Signs Temp 99.2 F 04/07/21 14:57 Pulse 101 H 04/07/21 14:57 Resp 18 04/07/21 14:57 BP 128/77 04/07/21 14:57 Pulse Ox 100 04/07/21 14:57 Intake & Output 04/06/21 04/07/21 04/07/21 18:59 06:59 18:59 Intake Total 183.5 625 Output Total 800 Balance -616.5 625 Intake: Intake, IV Titration 183.5 Amount Diltiazem 125 mg In 83.5 Sodium Chloride 0.9% 100 ml @ 10 MG/HR 10 mls/hr IV .[id number] [facility] Rx#: [id number] Levofloxacin 500Mg-D5w 100 Pmx 500 mg In Dextrose/ Water 1 100ml.bag @ 100 mls/hr IVPB Q24H [facility] Rx#: [id number] Blood Product 0 625 Platelet Pheresis Pas 315 Psoralen Unit [id number] Rc Irr As1 Unit 0 310 [id number] Output: Urine 800 Other: Voiding Method Toilet Urinal # Voids 3 1 - Constitutional General appearance: Present: no acute distress - EENT Eyes: Present: EOMI ENT: Present: hearing grossly normal, normal oropharynx - Respiratory Respiratory: bilateral: CTA - Cardiovascular Rhythm: regular Heart sounds: normal: S1, S2 - Gastrointestinal General gastrointestinal: Present: normal bowel sounds, soft - Integumentary Integumentary: Present: rash (Reddish, nodular, raised, partially confluent, involving bilateral upper extremities and upper chest) - Neurologic Neurologic: Present: CNII-XII intact - Musculoskeletal Musculoskeletal: Present: generalized weakness, strength equal bilaterally - Psychiatric Psychiatric: Present: A&O x's 3, appropriate affect - Labs CBC & Chem 7: 04/07/21 10:40 04/07/21 10:40 Labs: Abnormal Lab Results - Last 24 Hours (Table) 04/05/21 04/06/21 04/07/21 Range/Units 11:21 23:00 10:40 WBC (3.8-10.6) k/uL RBC (4.30-5.90) m/uL Hgb (13.0-17.5) gm/dL Hct (39.0-53.0) % RDW (11.5-15.5) % Plt Count (150-450) k/uL Macrocytosis Chloride 109 H 110 H (98-107) mmol/L Creatinine 0.61 L 0.55 L (0.66-1.25) mg/dL Glucose 111 H 102 H (74-99) mg/dL Uric Acid 3.3 L (3.5-8.5) mg/dL Lactate Dehydrogenase 2919 H (313-618) U/L Total Protein 5.8 L (6.3-8.2) g/dL Albumin 3.3 L (3.5-5.0) g/dL Crossmatch See Detail 04/07/21 04/07/21 Range/Units 10:40 10:40 WBC 0.4 L* (3.8-10.6) k/uL RBC 2.18 L (4.30-5.90) m/uL Hgb 7.1 L (13.0-17.5) gm/dL Hct 21.7 L (39.0-53.0) % RDW 23.0 H (11.5-15.5) % Plt Count 7 L* D (150-450) k/uL Macrocytosis Marked A Chloride 109 H (98-107) mmol/L Creatinine 0.60 L (0.66-1.25) mg/dL Glucose 103 H (74-99) mg/dL Uric Acid (3.5-8.5) mg/dL Lactate Dehydrogenase (313-618) U/L Total Protein 5.8 L (6.3-8.2) g/dL Albumin 3.4 L (3.5-5.0) g/dL Crossmatch Microbiology - Last 24 Hours (Table) 04/04/21 17:42 Blood Culture Gram Stain - Preliminary Blood Blood Culture - Preliminary Coagulase Negative Staph 04/04/21 17:42 Blood Culture - Final Blood 04/04/21 17:33 Blood Culture - Preliminary Blood No Growth after 48 hours Assessment and Plan (1) AV donny re-entry tachycardia Narrative/Plan: The patient had an episode of the same last p.m. and was transferred to the cardiac floor. He reverted back to normal sinus rhythm with 1 dose of adenosine. He has remained in NSR since. He has been evaluated by cardiology and dose of metoprolol and adjusted - Plan is for outpatient cardiology follow-up and possible ablation once his hematology issues are stable Current Visit: Yes Status: Acute Code(s): I47.1 - SUPRAVENTRICULAR TACHYCARDIA SNOMED Code(s): 169457290 (2) AML (acute myeloid leukemia) Narrative/Plan: The patient has completed reinduction with the Moni-FLAG regimen. Once determined to be stable from the cardiology and ID standpoint, he will be discharged home with plans for outpatient monitoring, supportive transfusion and prophylactic antibiotics. He will also start Midostaurin - Subsequent plan is for allogenic bone marrow transplant for consolidation. Current Visit: Yes Status: Acute Priority: High Code(s): C92.00 - ACUTE MYELOBLASTIC LEUKEMIA, NOT HAVING ACHIEVED REMISSION SNOMED Code(s): 54721074 (3) Pancytopenia due to antineoplastic chemotherapy Narrative/Plan: Hemoglobin today was greater than 7. Platelets were 7. Therefore one unit related platelets ordered. No evidence of bleeding. Continue to monitor and transfuse to keep hemoglobin greater than 7 and platelets >10. Current Visit: No Status: Acute Code(s): D61.810 - ANTINEOPLASTIC CHEMOTHERAPY INDUCED PANCYTOPENIA; T45.1X5A - ADVERSE EFFECT OF ANTINEOPLASTIC AND IMMUNOSUP DRUGS, INIT SNOMED Code(s): 212231458663122
[2021-04-07] MEDS: SALT AND SODA MOUTHWASH 1,000 ML PO PRN ×2 (17:52→17:59)
[2021-04-07] MEDS ORDERED: diphenhydrAMINE 25 MG CAP PO PRN (18:13)
[2021-04-07] MEDS: ACETAMINOPHEN TAB 325 MG TAB PO PRN (19:24)
--- NOTE | 2021-04-07 20:02 | P.PN ---
Progress Note - Text Progress Note Date: 04/07/21 Presenting complaint: AML-reinduction Interval history: Patient is getting chemotherapy for AML. Reinduction. Cytarabine, fludarabine, April 04: Sitting up in a chair. No nausea vomiting. Oral intake good. No skin changes. No respiratory symptoms. at the bedside. April 05: Day 4 of chemotherapy. Oral intake good. In and about. Some drop in blood counts. No dermatological or GI or respiratory or cardiac symptoms. Given 1 unit of PRBC April 06: Up and about in the hallway. Wanting a laxative for a good bowel movement. Did have a small 1 earlier. Breathing stable. No new symptoms. Decrease in hemoglobin and platelets. April 07: Yesterday evening patient went into A. fib/AV donny reentrant tachycardia with rapid ventricular rate. Moved to the cardiology floor. Put on IV Cardizem. Otherwise feeling well. Breathing stable or chest pain. Oral intake fair. Also receiving 1 unit of blood this morning. Also been having fever. Started on IV vancomycin and Levaquin Review of systems: Was done for constitutional, cardiovascular, GI, pulmonary. relevant finding as above Active Medications Acetaminophen (Acetaminophen Tab 325 Mg Tab) 650 mg PO Q6HR PRN PRN Reason: Fever and/ or Pain Last Admin: 04/07/21 19:24 Dose: 650 mg Documented by: Acyclovir (Acyclovir 200 Mg Cap) 400 mg PO BID [facility] Last Admin: 04/07/21 09:49 Dose: 400 mg Documented by: Atorvastatin Calcium (Atorvastatin 20 Mg Tab) 20 mg PO [facility] Last Admin: 04/06/21 20:33 Dose: 20 mg Documented by: Chlorhexidine Gluconate (Chlorhexidine Gluconate 15 Ml Cup) 15 ml MUCOUS MEM DAILY [facility] Last Admin: 04/07/21 09:49 Dose: 15 ml Documented by: Cholecalciferol (Cholecalciferol 25 Mcg (1000 Iu) Tablet) 50 mcg PO DAILY [facility] Last Admin: 04/07/21 09:21 Dose: 50 mcg Documented by: Diphenhydramine HCl (Diphenhydramine 25 Mg Cap) 25 mg PO QID PRN PRN Reason: Itching Last Admin: 04/07/21 19:18 Dose: 25 mg Documented by: Fluconazole (Fluconazole 100 Mg Tab) 100 mg PO [facility] Last Admin: 04/06/21 20:33 Dose: 100 mg Documented by: Folic Acid (Folic Acid 1 Mg Tab) 1 mg PO DAILY [facility] Last Admin: 04/07/21 09:22 Dose: 1 mg Documented by: Sodium Chloride (Saline 0.9%) 1,000 mls @ 75 mls/hr IV .[id number] [facility] Last Admin: 04/07/21 00:11 Dose: 75 mls/hr Documented by: Levofloxacin 500 mg/ IV (Solution) 100 mls @ 100 mls/hr IVPB Q24H [facility] Last Admin: 04/06/21 19:50 Dose: 100 mls/hr Documented by: Vancomycin HCl 1,750 mg/ (Sodium Chloride) 500 mls @ 167 mls/hr IVPB Q8H [facility] Last Admin: 04/07/21 14:56 Dose: 167 mls/hr Documented by: Loratadine (Loratadine 10 Mg Tab) 10 mg PO DAILY [facility] Last Admin: 04/07/21 09:21 Dose: 10 mg Documented by: Lorazepam (Lorazepam 2 Mg/Ml Inj) 0.5 mg IV Q6HR PRN PRN Reason: Anxiety Metoprolol Succinate (Metoprolol Succinate (Er) 25 Mg Tab.Er.24h) 25 mg PO DAILY [facility] Last Admin: 04/07/21 09:21 Dose: 25 mg Documented by: Metoprolol Succinate (Metoprolol Succinate (Er) 50 Mg Tab.Er.24h) 50 mg PO DAILY [facility] Miscellaneous Information (Vancomycin Iv Per Pharmacy 1 Each Misc) 1 each MIS CELLANE DIRECTED PRN; Protocol PRN Reason: Per Protocol Nitroglycerin (Nitroglycerin Sl Tabs 0.4 Mg Tab) 0.4 mg SUBLINGUAL Q5M PRN PRN Reason: Chest Pain Nystatin (Nystatin 100,000 Unit/Ml Susp 500,000 Unit/5 Ml Cup) 500,000 unit PO QID [facility] Last Admin: 04/07/21 17:52 Dose: 500,000 unit Documented by: Ondansetron HCl (Ondansetron 4 Mg/2 Ml Vial) 4 mg IVP Q6HR PRN PRN Reason: Nausea And Vomiting Pantoprazole Sodium (Pantoprazole 40 Mg Tablet) 40 mg PO AC-BID [facility] Last Admin: 04/07/21 17:51 Dose: 40 mg Documented by: Prednisolone Acetate (Prednisolone Acetate 1% Ophth Drops 5 Ml Btl) 1 drops BOTH EYES QID [facility] Last Admin: 04/07/21 17:51 Dose: 1 drops Documented by: Prochlorperazine Edisylate (Prochlorperazine Inj 10 Mg/2 Ml Vial) 10 mg IVP Q6H PRN PRN Reason: Nausea And Vomiting Sodium Bicarbonate (Salt And Soda Mouthwash 1,000 Ml) 5 ml PO AC-TID [facility] Last Admin: 04/07/21 15:02 Dose: 5 ml Documented by: Sodium Bicarbonate (Salt And Soda Mouthwash 1,000 Ml) 5 ml PO BID PRN PRN Reason: CHEMO Last Admin: 04/07/21 17:59 Dose: 5 ml Documented by: On examination: VITAL SIGNS: 100.4, 18, 16, 1 28 x 77, 100% room air GENERAL APPEARANCE: awake, comfortable HEENT: Normal external appearance of nose and ear. Oral cavity normal EYES: Pupils equal. Conjunctiva normal. NECK: JVD not raised. Mass not palpable. RESPIRATORY: Respiratory effort normal. Lungs clear to auscultation. CARDIOVASCULAR: First and second sounds normal. No edema. ABDOMEN: Soft. Liver and spleen not palpable. No tenderness. No mass palpable. PSYCHIATRY: Alert and oriented x3. Mood and affect normal. INVESTIGATIONS, reviewed in the clinical context: April 07: WBC 0.4 hemoglobin 7.1 platelet 7 potassium 4.2 creatinine 0.6 LDH 2919 April 06: WBC 2.1 hemoglobin 6.7 platelets 15 potassium 4.3 creatinine 0.53 uric acid 3.7 LDH 4489 April 05: White count 6.4 hemoglobin 6.3 platelets 20 blast cells 3% potassium 4.2 creatinine 0.5 uric acid 5.8 LDH 2474 WBC 13.4 hemoglobin 7 platelets 29 blood cells 4% potassium 3.8 creatinine 0.68 uric acid 7.6 AST 124 ALT 19 Chest x-ray film personally reviewed by me-no infiltrates Assessment and plan: -Acute myeloid leukemia Patient status post induction treatment with 7+3 regimen. requiring reinduction. Completed day 5 of chemotherapy. -Febrile neutropenia Started on IV vancomycin and Levaquin. Patient has no respiratory or urinary symptoms. -Blood cultures growing, coagulase-negative staph Repeat blood cultures. Consult ID. -Paroxysmal atrial fibrillation with AVRNT On Toprol-XL -Bicytopenia due to antineoplastic chemotherapy: Slow to respond Received second unit of PRBC today Daily CBC. -GERD Prilosec 40 mg twice a day -Hyperuricemia Follow closely On IV vancomycin, Levaquin. Blood cultures have shown coagulase-negative staph. Repeat blood cultures. Consult ID. Discussed with the patient and . Thank you Dr. dimas
[2021-04-07] MEDS: LEVOFLOXACIN 500MG-D5W PMX 500 MG in DEXTROSE/WATER 1 100ML.BAG IVPB SCH (20:43)
[2021-04-07] MEDS: ATORVASTATIN 20 MG TAB PO SCH (20:43)
[2021-04-07] MEDS: FLUCONAZOLE 100 MG TAB PO SCH (20:44)
[2021-04-07 21:56] LABS: African American GFR (CKD) 149.9 (60.0-200.0); Anion Gap 9.4 mmol/L (4.00-12.00); BUN/Creat Ratio 21.67 Ratio (12.00-20.00); Calcium 8.9 mg/dL (8.7-10.3); Carbon Dioxide 22.6 mmol/L (21.6-31.8); Magnesium 2.3 mg/dL (1.5-2.4); Non-African American GFR(CKD) 129.3 (60.0-200.0); Potassium 4.7 mmol/L (3.5-5.5)
[2021-04-08] MEDS: SALT AND SODA MOUTHWASH 1,000 ML PO SCH ×4 (01:01→17:24)
[2021-04-08] MEDS: NYSTATIN 100,000 UNIT/ML SUSP 500,000 UNIT/5 ML CUP PO SCH ×5 (01:02→21:10)
[2021-04-08] MEDS: SODIUM CHLORIDE 0.9% 1,000 ML IV SCH ×3 (01:03→21:10)
[2021-04-08 05:40] LABS: Appearance,Urine Clear (Clear); Bacteria,Urine Rare /hpf; Bilirubin,Urine Negative (Negative); Blood,Urine Trace (Negative); Color,Urine Yellow; Glucose,Urine (UA) Negative (Negative); Ketones,Urine Negative (Negative); Leukocyte Esterase,Urine Negative (Negative); Mucus,Urine Rare /hpf; Nitrite,Urine Negative (Negative); PH, Urine 6.5 (5.0-8.0); Protein,Urine Negative (Negative); RBC,Urine 2 /hpf (0-5); Specific Gravity,Urine 1.013 (1.001-1.035); Squamous Epithelial Cell,Urine <1 /hpf (0-4); Urobilinogen,Urine <2.0 mg/dL (<2.0); WBC,Urine 1 /hpf (0-5)
[2021-04-08 06:53] LABS: Anisocytosis Moderate; HCT 20.5 % (39.0-53.0); Hypochromasia Moderate; MCH 32.9 pg (25.0-35.0); MCV 99.9 fL (80.0-100.0); Macrocytosis Marked; Mean Platelet Volume 12.4; Poikilocytosis Moderate; RBC 2.05 m/uL (4.30-5.90); RDW 22.4 % (11.5-15.5)
[2021-04-08 07:09] LABS: WBC 0.2 k/uL (3.8-10.6)
[2021-04-08 07:10] LABS: African American GFR (CKD) >90 (>60 ml/min/1.73 sqM); Anion Gap 4 mmol/L; Blood Urea Nitrogen 10 mg/dL (9-20); Calcium 8.5 mg/dL (8.4-10.2); Carbon Dioxide 23 mmol/L (22-30); Chloride 110 mmol/L (98-107); Glucose 113 mg/dL (74-99); Non-African American GFR(CKD) >90 (>60 ml/min/1.73 sqM); Platelet Count 16 k/uL (150-450); Sodium 137 mmol/L (137-145); Uric Acid 2.6 mg/dL (3.5-8.5)
[2021-04-08 07:12] LABS: HGB 6.8 gm/dL (13.0-17.5)
[2021-04-08 07:28] LABS: LDH 2126 U/L (313-618)
[2021-04-08] MEDS: LORATADINE 10 MG TAB PO SCH (09:24)
[2021-04-08] MEDS: ACYCLOVIR 200 MG CAP PO SCH ×2 (09:24→21:10)
[2021-04-08] MEDS: FOLIC ACID 1 MG TAB PO SCH (09:24)
[2021-04-08] MEDS: PANTOPRAZOLE 40 MG TABLET PO SCH ×2 (09:25→17:23)
[2021-04-08] MEDS: METOPROLOL SUCCINATE (ER) 50 MG TAB.ER.24H PO SCH (09:25)
[2021-04-08] MEDS: CHLORHEXIDINE GLUCONATE 15 ML CUP MUCOUS MEM SCH (09:25)
[2021-04-08] MEDS: CHOLECALCIFEROL 25 MCG (1000 IU) TABLET PO SCH (09:25)
[2021-04-08] MEDS: METOPROLOL SUCCINATE (ER) 25 MG TAB.ER.24H PO SCH (09:25)
[2021-04-08] MEDS: prednisoLONE ACETATE 1% OPHTH DROPS 5 ML BTL BOTH EYES SCH ×4 (09:26→21:12)
[2021-04-08] MEDS: SALT AND SODA MOUTHWASH 1,000 ML PO PRN ×3 (09:27→17:24)
[2021-04-08] MEDS: VANCOMYCIN 2,000 MG in SODIUM CHLORIDE 0.9% 500 ML 500 ML IVPB SCH ×3 (09:35→23:43)
--- NOTE | 2021-04-08 14:03 | P.PN ---
Subjective Progress Note Date: 04/08/21 The patient is clinically stable, other than some progression of skin rash especially on his upper and lower extremities with development of a petechial component. He denies any oral bleeding, hemoptysis, or blood in the stool or urine. He has not had any recurrence of palpitations. No shortness of breath over baseline or chest pain. Objective - Vital Signs Vital signs: Vital Signs Temp 98 F 04/08/21 13:02 Pulse 102 H 04/08/21 13:02 Resp 16 04/08/21 13:02 BP 124/78 04/08/21 11:33 Pulse Ox 100 04/08/21 11:33 Intake & Output 04/07/21 04/08/21 04/08/21 18:59 06:59 18:59 Intake Total 1125 600 310 Balance 1125 600 310 Weight 110.5 kg Intake: Intake, IV Titration 500 Amount Vancomycin 1,750 mg In 500 Sodium Chloride 0.9% 500 ml 500 ml @ 167 mls/hr IVPB Q8H [facility] Rx#: [id number] Oral 600 Blood Product 625 310 Platelet Pheresis Pas 315 Psoralen Unit [id number] Rc Irr As1 Unit 310 [id number] Rc Irr As1 Unit 310 [id number] Other: Voiding Method Toilet Urinal # Voids 2 - Constitutional General appearance: Present: no acute distress - EENT Eyes: Present: EOMI ENT: Present: hearing grossly normal, normal oropharynx - Respiratory Respiratory: bilateral: CTA - Cardiovascular Rhythm: regular Heart sounds: normal: S1, S2 - Gastrointestinal General gastrointestinal: Present: normal bowel sounds, soft - Integumentary Integumentary: Present: rash (Slightly raised, reddish, nodular skin rash partially confluent with development of petechial-type appearance in scattered areas) - Neurologic Neurologic: Present: CNII-XII intact - Musculoskeletal Musculoskeletal: Present: generalized weakness, strength equal bilaterally - Psychiatric Psychiatric: Present: A&O x's 3, appropriate affect - Labs CBC & Chem 7: 04/08/21 06:16 04/08/21 06:16 Labs: Abnormal Lab Results - Last 24 Hours (Table) 04/05/21 04/06/21 04/08/21 Range/Units 11:21 18:18 04:34 WBC (3.8-10.6) k/uL RBC (4.30-5.90) m/uL Hgb (13.0-17.5) gm/dL Hct (39.0-53.0) % RDW (11.5-15.5) % Plt Count (150-450) k/uL Macrocytosis Chloride (98-107) mmol/L Creatinine (0.66-1.25) mg/dL BUN/Creatinine Ratio 21.67 H (12.00-20.00) Ratio Glucose 152 H (70-110) mg/dL Uric Acid (3.5-8.5) mg/dL Lactate Dehydrogenase (313-618) U/L Urine Blood Trace H (Negative) Urine Bacteria Rare H (None) /hpf Urine Mucus Rare H (None) /hpf Crossmatch See Detail 04/08/21 04/08/21 Range/Units 06:16 06:16 WBC 0.2 L* (3.8-10.6) k/uL RBC 2.05 L (4.30-5.90) m/uL Hgb 6.8 L* (13.0-17.5) gm/dL Hct 20.5 L (39.0-53.0) % RDW 22.4 H (11.5-15.5) % Plt Count 16 L* D (150-450) k/uL Macrocytosis Marked A Chloride 110 H (98-107) mmol/L Creatinine 0.47 L (0.66-1.25) mg/dL BUN/Creatinine Ratio (12.00-20.00) Ratio Glucose 113 H (70-110) mg/dL Uric Acid 2.6 L (3.5-8.5) mg/dL Lactate Dehydrogenase 2126 H (313-618) U/L Urine Blood (Negative) Urine Bacteria (None) /hpf Urine Mucus (None) /hpf Crossmatch Microbiology - Last 24 Hours (Table) 04/04/21 17:33 Blood Culture - Preliminary Blood No Growth after 72 hours 04/04/21 17:42 Blood Culture Gram Stain - Preliminary Blood Blood Culture - Preliminary Coagulase Negative Staph Assessment and Plan (1) AV donny re-entry tachycardia Narrative/Plan: The patient is stable on metoprolol. Cardiology is following. Repeat echocardiogram did not show any deterioration in LV function. Continue follow- up outpatient with cardiology Current Visit: Yes Status: Acute Code(s): I47.1 - SUPRAVENTRICULAR TACHYCARDIA SNOMED Code(s): 834717740 (2) AML (acute myeloid leukemia) Narrative/Plan: The patient has completed re induction with the Moni-FLAG component. He will start midostaurin on 04/09/21. Additional preprocedure workup as an outpatient in anticipation of planned allogenic transplant Current Visit: Yes Status: Acute Priority: High Code(s): C92.00 - ACUTE MYELOBLASTIC LEUKEMIA, NOT HAVING ACHIEVED REMISSION SNOMED Code(s): 26054019 (3) Pancytopenia due to antineoplastic chemotherapy Narrative/Plan: WBC is markedly reduced as expected for this stage of treatment. Platelet counts of greater than 10,000. He received 1 unit PRBC for hemoglobin of 6.8. Current Visit: No Status: Acute Code(s): D61.810 - ANTINEOPLASTIC CHEMOTHERAPY INDUCED PANCYTOPENIA; T45.1X5A - ADVERSE EFFECT OF ANTINEOPLASTIC AND IMMUNOSUP DRUGS, INIT SNOMED Code(s): 913018025730439 (4) Neutropenic fever Narrative/Plan: While the patient is severely neutropenic, his fever pattern has not been very impressive. In the last 48 hours T-max has been 100.4. Cultures are negative. ID has been consulted. Case will be discussed with them to see if the patient can potentially stop vancomycin as that is a probable cause for his skin rash. Current Visit: Yes Status: Acute Code(s): D70.9 - NEUTROPENIA, UNSPECIFIED; R50.81 - FEVER PRESENTING WITH CONDITIONS CLASSIFIED ELSEWHERE SNOMED Code(s): 311439402 Plan: Continue Benadryl for some dramatic treatment of his skin rash. Plan to make adjustments in his regimen as noted above
--- NOTE | 2021-04-08 15:44 | P.PN ---
Progress Note - Text Progress Note Date: 04/08/21 Presenting complaint: AML-reinduction Interval history: Patient is getting chemotherapy for AML. Reinduction. Cytarabine, fludarabine, April 04: Sitting up in a chair. No nausea vomiting. Oral intake good. No skin changes. No respiratory symptoms. at the bedside. April 05: Day 4 of chemotherapy. Oral intake good. In and about. Some drop in blood counts. No dermatological or GI or respiratory or cardiac symptoms. Given 1 unit of PRBC April 06: Up and about in the hallway. Wanting a laxative for a good bowel movement. Did have a small 1 earlier. Breathing stable. No new symptoms. Decrease in hemoglobin and platelets. April 07: Yesterday evening patient went into A. fib/AV donny reentrant tachycardia with rapid ventricular rate. Moved to the cardiology floor. Put on IV Cardizem. Otherwise feeling well. Breathing stable or chest pain. Oral intake fair. Also receiving 1 unit of blood this morning. Also been having fever. Started on IV vancomycin and Levaquin April 08: Fevers have been down. Has a rash in the body. Exact cause unknown. Also possible petechiae on the harper. Oral intake good. Patient usually received his third unit of PRBC this morning. Received platelets yesterday. Review of systems: Was done for constitutional, cardiovascular, GI, pulmonary. relevant finding as above Active Medications Acetaminophen (Acetaminophen Tab 325 Mg Tab) 650 mg PO Q6HR PRN PRN Reason: Fever and/ or Pain Last Admin: 04/07/21 19:24 Dose: 650 mg Documented by: Acyclovir (Acyclovir 200 Mg Cap) 400 mg PO BID [facility] Last Admin: 04/08/21 09:24 Dose: 400 mg Documented by: Atorvastatin Calcium (Atorvastatin 20 Mg Tab) 20 mg PO HS [facility] Last Admin: 04/07/21 20:43 Dose: 20 mg Documented by: Chlorhexidine Gluconate (Chlorhexidine Gluconate 15 Ml Cup) 15 ml MUCOUS MEM DAILY [facility] Last Admin: 04/08/21 09:25 Dose: 15 ml Documented by: Cholecalciferol (Cholecalciferol 25 Mcg (1000 Iu) Tablet) 50 mcg PO DAILY [facility] Last Admin: 04/08/21 09:25 Dose: 50 mcg Documented by: Diphenhydramine HCl (Diphenhydramine 25 Mg Cap) 25 mg PO QID PRN PRN Reason: Itching Last Admin: 04/07/21 19:18 Dose: 25 mg Documented by: Fluconazole (Fluconazole 100 Mg Tab) 100 mg PO [facility] Last Admin: 04/07/21 20:44 Dose: 100 mg Documented by: Folic Acid (Folic Acid 1 Mg Tab) 1 mg PO DAILY [facility] Last Admin: 04/08/21 09:24 Dose: 1 mg Documented by: Sodium Chloride (Saline 0.9%) 1,000 mls @ 75 mls/hr IV .[id number] [facility] Last Admin: 04/08/21 09:26 Dose: 75 mls/hr Documented by: Levofloxacin 500 mg/ IV (Solution) 100 mls @ 100 mls/hr IVPB Q24H [facility] Last Admin: 04/07/21 20:43 Dose: 100 mls/hr Documented by: Vancomycin HCl 2,000 mg/ (Sodium Chloride) 500 mls @ 167 mls/hr IVPB Q8H [facility] Last Admin: 04/08/21 09:35 Dose: 167 mls/hr Documented by: Loratadine (Loratadine 10 Mg Tab) 10 mg PO DAILY [facility] Last Admin: 04/08/21 09:24 Dose: 10 mg Documented by: Lorazepam (Lorazepam 2 Mg/Ml Inj) 0.5 mg IV Q6HR PRN PRN Reason: Anxiety Metoprolol Succinate (Metoprolol Succinate (Er) 25 Mg Tab.Er.24h) 25 mg PO DAILY [facility] Last Admin: 04/08/21 09:25 Dose: 25 mg Documented by: Metoprolol Succinate (Metoprolol Succinate (Er) 50 Mg Tab.Er.24h) 50 mg PO DAILY [facility] Last Admin: 04/08/21 09:25 Dose: 50 mg Documented by: Nitroglycerin (Nitroglycerin Sl Tabs 0.4 Mg Tab) 0.4 mg SUBLINGUAL Q5M PRN PRN Reason: Chest Pain Nystatin (Nystatin 100,000 Unit/Ml Susp 500,000 Unit/5 Ml Cup) 500,000 unit PO QID [facility] Last Admin: 04/08/21 13:20 Dose: 500,000 unit Documented by: Ondansetron HCl (Ondansetron 4 Mg/2 Ml Vial) 4 mg IVP Q6HR PRN PRN Reason: Nausea And Vomiting Pantoprazole Sodium (Pantoprazole 40 Mg Tablet) 40 mg PO AC-BID [facility] Last Admin: 04/08/21 09:25 Dose: 40 mg Documented by: Prednisolone Acetate (Prednisolone Acetate 1% Ophth Drops 5 Ml Btl) 1 drops BOTH EYES QID [facility] Last Admin: 04/08/21 13:20 Dose: 1 drops Documented by: Prochlorperazine Edisylate (Prochlorperazine Inj 10 Mg/2 Ml Vial) 10 mg IVP Q6H PRN PRN Reason: Nausea And Vomiting Sodium Bicarbonate (Salt And Soda Mouthwash 1,000 Ml) 5 ml PO AC-TID [facility] Last Admin: 04/08/21 13:20 Dose: Not Given Documented by: Sodium Bicarbonate (Salt And Soda Mouthwash 1,000 Ml) 5 ml PO BID PRN PRN Reason: CHEMO Last Admin: 04/08/21 13:20 Dose: 5 ml Documented by: On examination: VITAL SIGNS: Afebrile, 97, 16, 122/85, 98% room air GENERAL APPEARANCE: Sitting up to chair, comfortable DERMATOLOGICAL: Possible scattered petechial rash on the harper. Patient also has a rash on the forearms back upper chest. HEENT: Normal external appearance of nose and ear. Oral cavity normal EYES: Pupils equal. Conjunctiva normal. NECK: JVD not raised. Mass not palpable. RESPIRATORY: Respiratory effort normal. Lungs clear to auscultation. CARDIOVASCULAR: First and second sounds normal. No edema. ABDOMEN: Soft. Liver and spleen not palpable. No tenderness. No mass palpable. PSYCHIATRY: Alert and oriented x3. Mood and affect normal. INVESTIGATIONS, reviewed in the clinical context: April 08: WBC 0.2 hemoglobin 6.8 platelets 16 potassium 4 creatinine 0.47 LDH 2125 UA: Negative Blood culture [April 04]: Coagulase negative staph April 07: WBC 0.4 hemoglobin 7.1 platelet 7 potassium 4.2 creatinine 0.6 LDH 291April 06: WBC 2.1 hemoglobin 6.7 platelets 15 potassium 4.3 creatinine 0.53 uric acid 3.7 LDH 448April 05: White count 6.4 hemoglobin 6.3 platelets 20 blast cells 3% potassium 4.2 creatinine 0.5 uric acid 5.8 LDH 2474 WBC 13.4 hemoglobin 7 platelets 29 blood cells 4% potassium 3.8 creatinine 0.68 uric acid 7.6 AST 124 ALT 19 Chest x-ray film personally reviewed by me-no infiltrates Assessment and plan: -Acute myeloid leukemia Patient status post induction treatment with 7+3 regimen. requiring reinduction. Completed day 5 of chemotherapy. -Febrile neutropenia Started on IV vancomycin and Levaquin. Patient has no respiratory or urinary symptoms. Blood culture positive from April 04 with coagulase negative staph -Blood cultures growing, coagulase-negative staph Repeat blood cultures. Follow with ID. on IV vancomycin -Paroxysmal atrial fibrillation with AVRNT On Toprol-XL -Bicytopenia due to antineoplastic chemotherapy: Slow to respond Received third unit of PRBC today Daily CBC. -GERD Prilosec 40 mg twice a day -Hyperuricemia Follow closely -Petechial rash. Also other undetermined rash. Unclear if side effect of medications/antibiotics. Follow clinically Continue IV vancomycin, Levaquin. Blood cultures have shown coagulase-negative staph. Discussed with the patient. Follow labs closely. Received third unit of PRBC o today. Thank you Dr. dimas
[2021-04-08] MEDS: LEVOFLOXACIN 500MG-D5W PMX 500 MG in DEXTROSE/WATER 1 100ML.BAG IVPB SCH (21:09)
[2021-04-08] MEDS: ATORVASTATIN 20 MG TAB PO SCH (21:10)
[2021-04-08] MEDS: FLUCONAZOLE 100 MG TAB PO SCH (23:43)
[2021-04-09 07:24] LABS: Anisocytosis Moderate; HCT 20.9 % (39.0-53.0); HGB 7.1 gm/dL (13.0-17.5); Hypochromasia Slight; MCH 33.5 pg (25.0-35.0); MCHC 33.8 g/dL (31.0-37.0); MCV 99.2 fL (80.0-100.0); Macrocytosis Moderate; Mean Platelet Volume 7.4; Poikilocytosis Moderate; RBC 2.11 m/uL (4.30-5.90); RDW 20.6 % (11.5-15.5)
[2021-04-09 07:28] LABS: Platelet Count 11 k/uL (150-450); WBC 0.1 k/uL (3.8-10.6)
--- NOTE | 2021-04-09 08:09 | P.CONS ---
History of Present Illness - Reason for Consult Consult date: 04/08/21 Febrile neutropenia Requesting physician: Patrice Gann - Chief Complaint Fever x few days - History of Present Illness Patient is a 35-year-old male with a past medical he significant for acute myeloid leukemia this patient who has been admitted to the hospital on 02 April 2021 for reinduction chemotherapy patient did have a PICC line left arm that was replaced on the for the chemotherapy patient was afebrile on admission did have low-grade fever 100.6 on the and did have a low-grade fever 100.4 on 07 April patient did have a blood culture done on the which came back positive coagulase-negative staph patient has been treated with the vancomycin infectious disease was consulted last night for febrile neutropenia in this patient white count remains to be low patient did have normal kidney function as well as liver enzymes urine has been negative Vanco trough has been on the low side patient did have a chest x-ray did not show any acute finding patient did have a rash to bilateral upper and lower extremity with the patient mention he has since admission to the hospital and did not mention any worsening after the vancomycin was started he did have mild itching to it but no burning pain no vesicles or blisters, patient currently denies having any headache no URI symptoms no chest pain shortness of breath or cough no abdominal pain no diarrhea no urinary symptoms Review of Systems Positive point has been mentioned in the HPI rest of the systems are negative Past Medical History Past Medical History: Cancer Additional Past Medical History / Comment(s): AML, anemia/low RBC, elevated WBC, recent root canal with infection being treated with abx, occasional back pain History of Any Multi-Drug Resistant Organisms: None Reported Past Surgical History: Tonsillectomy Additional Past Surgical History / Comment(s): BMA/biopsy, EGD, colonoscopy Past Anesthesia/Blood Transfusion Reactions: No Reported Reaction Smoking Status: Never smoker - Past Family History Mother Family Medical History: No Reported History Father Family Medical History: Osteoarthritis (OA) Medications and Allergies Home Medications Medication Instructions Recorded Confirmed Type Chlorhexidine Gluconate [Peridex] 15 ml PO DAILY 01/25/21 02/15/21 History Omeprazole [PriLOSEC] 40 mg PO BID 01/25/21 02/15/21 History Acyclovir [Zovirax] 400 mg PO BID #60 cap 02/02/21 02/15/21 Rx Ondansetron Odt [Zofran ODT] 4 mg PO Q6HR PRN #45 tab 02/02/21 02/15/21 Rx Cholecalciferol [Vitamin D3 (25 50 mcg PO DAILY #60 tablet 02/03/21 02/15/21 Rx Mcg = 1000 Iu)] Folic Acid 1 mg PO DAILY #30 tablet 02/03/21 02/15/21 Rx Nystatin 100,000 Unit/ml Susp 500,000 unit PO QID #360 ml 02/03/21 02/15/21 Rx [Mycostatin Oral Susp] Levofloxacin [Levaquin] 750 mg PO DAILY 02/15/21 02/15/21 History Loratadine [Claritin] 10 mg PO DAILY 02/15/21 02/15/21 History Atorvastatin [Lipitor] 20 mg PO HS #30 tab 02/16/21 Rx Metoprolol Succinate (ER) [Toprol 25 mg PO DAILY #30 tab.er.24h 02/16/21 Rx XL] Nitroglycerin Sl Tabs [Nitrostat] 0.4 mg SUBLINGUAL Q5M PRN #30 tab 02/16/21 Rx Allergies Allergy/AdvReac Type Severity Reaction Status Date / Time No Known Allergies Allergy Verified 04/01/21 11:19 Physical Exam Vitals: Vital Signs Temp Pulse Pulse Pulse Resp BP BP 04/08/21 11:33 98.1 F 90 18 124/78 04/08/21 09:51 98.2 F 97 16 126/81 04/08/21 09:27 98.2 F 102 H 16 127/81 04/08/21 09:17 98.3 F 97 16 123/85 04/08/21 04:00 98.6 F 101 H 18 126/75 04/07/21 20:00 100.1 F H 110 H 20 143/87 04/07/21 14:57 99.2 F 101 H 18 128/77 04/07/21 14:56 99.2 F 101 H 16 128/77 Pulse Ox 04/08/21 11:33 100 04/08/21 09:51 98 04/08/21 09:27 98 04/08/21 09:17 98 04/08/21 04:00 04/07/21 20:00 100 04/07/21 14:57 100 04/07/21 14:56 100 Intake and Output 04/07/21 04/08/21 04/08/21 22:59 06:59 14:59 Intake Total 600 0 Balance 600 0 Intake: Oral 600 Blood Product 0 Rc Irr As1 Unit 0 [id number] Other: Voiding Method Toilet Urinal # Voids 1 2 Weight 110.5 kg GENERAL DESCRIPTION: Middle-aged male lying in bed, no distress. No tachypnea or accessory muscle of respiration use. HEENT: Shows Pallor , no scleral icterus. Oral mucous membrane is dry. No pharyngeal erythema or thrush NECK: Trachea central, no thyromegaly. LUNGS: Unlabored breathing. Clear to auscultation anteriorly. No wheeze or crackle. HEART: S1, S2, regular rate and rhythm. No loud murmur ABDOMEN: Soft, no tenderness , guarding or rigidity, no organomegaly EXTREMITIES: No edema of feet. SKIN: Maculopapular rash to the upper and lower extremity no vesicles no masses palpable NEUROLOGICAL: The patient is awake, alert, oriented x3, mood and affect normal. Results CBC & Chem 7: 04/09/21 07:01 04/08/21 06:16 Labs: Abnormal Lab Results - Last 24 Hours (Table) 04/05/21 04/06/21 04/08/21 Range/Units 11:21 18:18 04:34 WBC (3.8-10.6) k/uL RBC (4.30-5.90) m/uL Hgb (13.0-17.5) gm/dL Hct (39.0-53.0) % RDW (11.5-15.5) % Plt Count (150-450) k/uL Macrocytosis Chloride (98-107) mmol/L Creatinine (0.66-1.25) mg/dL BUN/Creatinine Ratio 21.67 H (12.00-20.00) Ratio Glucose 152 H (70-110) mg/dL Uric Acid (3.5-8.5) mg/dL Lactate Dehydrogenase (313-618) U/L Urine Blood Trace H (Negative) Urine Bacteria Rare H (None) /hpf Urine Mucus Rare H (None) /hpf Crossmatch See Detail 04/08/21 04/08/21 Range/Units 06:16 06:16 WBC 0.2 L* (3.8-10.6) k/uL RBC 2.05 L (4.30-5.90) m/uL Hgb 6.8 L* (13.0-17.5) gm/dL Hct 20.5 L (39.0-53.0) % RDW 22.4 H (11.5-15.5) % Plt Count 16 L* D (150-450) k/uL Macrocytosis Marked A Chloride 110 H (98-107) mmol/L Creatinine 0.47 L (0.66-1.25) mg/dL BUN/Creatinine Ratio (12.00-20.00) Ratio Glucose 113 H (70-110) mg/dL Uric Acid 2.6 L (3.5-8.5) mg/dL Lactate Dehydrogenase 2126 H (313-618) U/L Urine Blood (Negative) Urine Bacteria (None) /hpf Urine Mucus (None) /hpf Crossmatch Microbiology - Last 24 Hours (Table) 04/04/21 17:33 Blood Culture - Preliminary Blood No Growth after 72 hours 04/04/21 17:42 Blood Culture Gram Stain - Preliminary Blood Blood Culture - Preliminary Coagulase Negative Staph Assessment and Plan Assessment: patient with febrile neutropenia in this patient admitted to the hospital for reinduction of chemotherapy for underlying acute myeloid leukemia this patient currently do not have obvious focus of infection patient did have 1 blood culture positive for coagulase-negative staph which could have been disregarded as possible contaminant however the patient did have a PICC line and could be the source which was renewed this admission (1) Febrile neutropenia Current Visit: Yes Status: Acute Code(s): D70.9 - NEUTROPENIA, UNSPECIFIED; R50.81 - FEVER PRESENTING WITH CONDITIONS CLASSIFIED ELSEWHERE SNOMED Code(s): 151580846 Plan: 1-we will obtain blood cultures from the PICC line and peripherally 2-vancomycin pharmacy to dose her with a target trough of 15 while watching her kidney function and Vanco trough closely. While waiting for repeat culture to finalize Plan was discussed with the oncologist We will follow on clinical condition and cultures to further adjust medication if needed Thank you for this consultation we will follow the patient along with you Time with Patient: Greater than 30
[2021-04-09] MEDS: METOPROLOL SUCCINATE (ER) 50 MG TAB.ER.24H PO SCH (08:48)
[2021-04-09] MEDS: ACYCLOVIR 200 MG CAP PO SCH ×2 (08:48→19:24)
[2021-04-09] MEDS: PANTOPRAZOLE 40 MG TABLET PO SCH ×2 (08:48→17:29)
[2021-04-09] MEDS: METOPROLOL SUCCINATE (ER) 25 MG TAB.ER.24H PO SCH (08:48)
[2021-04-09] MEDS: LORATADINE 10 MG TAB PO SCH (08:49)
[2021-04-09] MEDS: FOLIC ACID 1 MG TAB PO SCH (08:49)
[2021-04-09] MEDS: CHOLECALCIFEROL 25 MCG (1000 IU) TABLET PO SCH (08:49)
[2021-04-09] MEDS: NYSTATIN 100,000 UNIT/ML SUSP 500,000 UNIT/5 ML CUP PO SCH ×4 (08:49→19:26)
[2021-04-09] MEDS: SALT AND SODA MOUTHWASH 1,000 ML PO PRN (08:51)
[2021-04-09] MEDS: prednisoLONE ACETATE 1% OPHTH DROPS 5 ML BTL BOTH EYES SCH ×4 (08:51→20:34)
[2021-04-09] MEDS: SODIUM CHLORIDE 0.9% 1,000 ML IV SCH (08:51)
[2021-04-09] MEDS: SALT AND SODA MOUTHWASH 1,000 ML PO SCH ×3 (08:54→17:30)
[2021-04-09] MEDS: VANCOMYCIN 2,000 MG in SODIUM CHLORIDE 0.9% 500 ML 500 ML IVPB SCH ×2 (08:56→15:42)
[2021-04-09] MEDS: CHLORHEXIDINE GLUCONATE 15 ML CUP MUCOUS MEM SCH (09:13)
--- NOTE | 2021-04-09 13:47 | PN ---
PROGRESS NOTE DATE OF SERVICE: 04/09/2021 REASON FOR FOLLOWUP: Positive blood culture INTERVAL HISTORY: The patient did not have any fever over the last 48 hours. The patient overall is feeling better, breathing comfortably. No chest pain, shortness of breath or cough. No abdominal pain or diarrhea. PHYSICAL EXAMINATION: Blood pressure 137/63 with a pulse of 101, temperature 98.3. He is 96% on room air. GENERAL DESCRIPTION: General description is a middle-aged male up in a chair in no distress. RESPIRATORY SYSTEM: Unlabored breathing. Clear to auscultation anteriorly. HEART: S1, S2. Regular rate and rhythm. ABDOMEN: Soft. No tenderness. Skin examination shows rash, but no worsening was noted. LABS: Hemoglobin is 7.1, white count 0.1, platelet count is 11. Blood culture on 04/04 was peripherally positive for . Blood culture on 04/07 has been negative. DIAGNOSTIC IMPRESSION AND PLAN: Patient with febrile neutropenia in this patient with no obvious focus. He did have a positive blood culture; however, those were done peripherally. If the blood cultures from the PICC line that were drawn yesterday remain negative by tomorrow, will recommend no antibiotic on discharge. However, if those are positive he may need to be treated for a line-related infection. This was explained to the nurse. Continue with supportive care. MMODL / IJN: [id number] /
[2021-04-09 13:55] VITALS: BMI 33.0
[2021-04-09 15:05] LABS: African American GFR (CKD) 161.6 (60.0-200.0); Calcium 8.3 mg/dL (8.7-10.3); Non-African American GFR(CKD) 139.4 (60.0-200.0); Potassium 4.2 mmol/L (3.5-5.5)
--- NOTE | 2021-04-09 15:35 | P.PN ---
Subjective Progress Note Date: 04/09/21 Principal diagnosis: AML, re-induction, FLT3 mutation In f/u today pt is feeling pretty good, rash is stable, maybe a little better, no fever, bleeding. Pending the culture from PICC line so that antibiotics can be adjusted. Patient has no oral irritation, nausea, vomiting, difficulty in breathing, abdominal pain or cramping, appetite is fair to good, no acute changes in bowel or bladder habits. Objective - Vital Signs Vital signs: Vital Signs Temp 98.2 F 04/09/21 12:52 Pulse 91 04/09/21 12:52 Resp 16 04/09/21 12:52 BP 126/81 04/09/21 12:52 Pulse Ox 100 04/09/21 12:52 Intake & Output 04/08/21 04/09/21 04/09/21 18:59 06:59 18:59 Intake Total 1410 1989 Balance 1410 1989 Weight 110.6 kg 110.6 kg Intake: Intake, IV Titration 1100 1400 Amount Sodium Chloride 0.9% 1, 600 900 000 ml @ 75 mls/hr IV . [id number] [facility] Rx#:[id number] Vancomycin 2,000 mg In 500 500 Sodium Chloride 0.9% 500 ml 500 ml @ 167 mls/hr IVPB Q8H [facility] Rx#: [id number] Oral 590 Blood Product 310 Rc Irr As1 Unit 310 [id number] Other: Voiding Method Toilet Toilet Urinal Urinal # Voids 2 - Constitutional General appearance: Present: average body habitus, cooperative, no acute distress - EENT Eyes: Present: anicteric sclerae, EOMI ENT: Present: hearing grossly normal, normal oropharynx - Respiratory Respiratory: bilateral: CTA - Cardiovascular Rhythm: regular Heart sounds: normal: S1, S2 Abnormal Heart Sounds: Absent: systolic murmur, diastolic murmur, rub, S3 Gallop, S4 Gallop, click, other - Peripheral edema leg Peripheral Edema: bilateral: None - Gastrointestinal General gastrointestinal: Present: normal bowel sounds, soft - Integumentary Integumentary Comment(s): Reddened macular rash on the abdomen and extremities, not palpable, not painful to the touch, no oozing or drainage - Neurologic Neurologic: Present: CNII-XII intact - Musculoskeletal Musculoskeletal: Present: strength equal bilaterally - Psychiatric Psychiatric: Present: A&O x's 3, appropriate affect, intact judgment & insight - Labs CBC & Chem 7: 04/09/21 07:01 04/09/21 07:01 Labs: Abnormal Lab Results - Last 24 Hours (Table) 04/08/21 04/08/21 04/09/21 Range/Units 14:56 14:56 07:01 WBC 0.1 L* (3.8-10.6) k/uL RBC 2.11 L (4.30-5.90) m/uL Hgb 7.1 L (13.0-17.5) gm/dL Hct 20.9 L (39.0-53.0) % RDW 20.6 H (11.5-15.5) % Plt Count 11 L* (150-450) k/uL Chloride (96-109) mmol/L Creatinine (0.6-1.5) mg/dL BUN/Creatinine Ratio (12.00-20.00) Ratio Calcium (8.7-10.3) mg/dL C-Reactive Protein 8.0 H (<1.0) mg/dL Procalcitonin 0.24 H (0.02-0.09) ng/mL 04/09/21 Range/Units 07:01 WBC (3.8-10.6) k/uL RBC (4.30-5.90) m/uL Hgb (13.0-17.5) gm/dL Hct (39.0-53.0) % RDW (11.5-15.5) % Plt Count (150-450) k/uL Chloride 111 H (96-109) mmol/L Creatinine 0.5 L (0.6-1.5) mg/dL BUN/Creatinine Ratio 22.00 H (12.00-20.00) Ratio Calcium 8.3 L (8.7-10.3) mg/dL C-Reactive Protein (<1.0) mg/dL Procalcitonin (0.02-0.09) ng/mL Microbiology - Last 24 Hours (Table) 04/04/21 17:42 Blood Culture Gram Stain - Final Blood Blood Culture - Final Coagulase Negative Staph 04/07/21 20:29 Blood Culture - Preliminary Blood No Growth after 24 hours 04/04/21 17:33 Blood Culture - Preliminary Blood No Growth after 96 hours Assessment and Plan (1) AML (acute myeloid leukemia) Narrative/Plan: FLT 3 mutation. He is to start rydapt today. Med was brought from home. Orders place for the same Status post reinduction chemo for disease that was not responsive to induction. Patient will be on antiviral, antibiotic, antifungal on discharge. Currently pending PICC line culture per ID recommendations 3 times a week follow-up appointments for CBC and transfusions as needed. Soon to f/u/meet with transplant team? Current Visit: Yes Status: Acute Priority: High Code(s): C92.00 - ACUTE MYELOBLASTIC LEUKEMIA, NOT HAVING ACHIEVED REMISSION SNOMED Code(s): 97684815
--- NOTE | 2021-04-09 16:41 | P.PN ---
Subjective Progress Note Date: 04/09/21 Presenting complaint: AML-reinduction Interval history: Patient is getting chemotherapy for AML. Reinduction. Cytarabine, fludarabine, April 04: Sitting up in a chair. No nausea vomiting. Oral intake good. No skin changes. No respiratory symptoms. at the bedside. April 05: Day 4 of chemotherapy. Oral intake good. In and about. Some drop in blood counts. No dermatological or GI or respiratory or cardiac symptoms. Given 1 unit of PRBC April 06: Up and about in the hallway. Wanting a laxative for a good bowel movement. Did have a small 1 earlier. Breathing stable. No new symptoms. Decrease in hemoglobin and platelets. April 07: Yesterday evening patient went into A. fib/AV donny reentrant tachycardia with rapid ventricular rate. Moved to the cardiology floor. Put on IV Cardizem. Otherwise feeling well. Breathing stable or chest pain. Oral intake fair. Also receiving 1 unit of blood this morning. Also been having fever. Started on IV vancomycin and Levaquin April 08: Fevers have been down. Has a rash in the body. Exact cause unknown. Also possible petechiae on the harper. Oral intake good. Patient usually received his third unit of PRBC this morning. Received platelets yesterday. 04/09/2021 Patient is seen in follow-up currently on oncology unit and off IV Cardizem and maintaining sinus mechanism. Patient continues on IV antibiotics in the form of Levaquin and vancomycin with infectious disease following closely. Patient continues to have a rash that he states is improving and this rash occurred status post initial antibiotic administration. Patient feels much improved and has remained afebrile for 48 hours. Blood pressure has been stable and patient is breathing comfortably with no reports of shortness of breath at 100% on room air. Will add topical Benadryl for the itching of the upper extremities. White blood count is 0.1, hemoglobin is 7.1, platelets are 11, sodium is 143 with a potassium of 4.2 current creatinine is 0.5. Review of systems: Constitutional: No reports of fatigue, fever, or chills, reports generalized itching to the upper extremities Cardiovascular: No reports of chest pain or palpitations Respiratory: No reports of shortness of breath or cough GI: No reports of nausea, vomiting, or diarrhea : No reports of dysuria or retention Neurovascular: No reports of weakness or numbness All medications have been reviewed Objective - Vital Signs Vital signs: Vital Signs Temp 98.2 F 04/09/21 12:52 Pulse 91 04/09/21 12:52 Resp 16 04/09/21 12:52 BP 126/81 04/09/21 12:52 Pulse Ox 100 04/09/21 12:52 Intake & Output 04/08/21 04/09/21 04/09/21 18:59 06:59 18:59 Intake Total 1410 1989 Balance 1410 1989 Weight 110.6 kg 110.6 kg Intake: Intake, IV Titration 1100 1400 Amount Sodium Chloride 0.9% 1, 600 900 000 ml @ 75 mls/hr IV . [id number] [facility] Rx#:[id number] Vancomycin 2,000 mg In 500 500 Sodium Chloride 0.9% 500 ml 500 ml @ 167 mls/hr IVPB Q8H [facility] Rx#: [id number] Oral 590 Blood Product 310 Rc Irr As1 Unit 310 [id number] Other: Voiding Method Toilet Toilet Urinal Urinal # Voids 2 2 - Exam VITAL SIGNS: Afebrile, temp is 98.2F, pulse is 91, respirations are 16, blood pressure is 126/81, oxygen saturation is 100% on room air. GENERAL APPEARANCE: Sitting up in the chair, comfortable DERMATOLOGICAL: Possible scattered petechial rash on the harper and bilateral forearms back upper chest. HEENT: Normal external appearance of nose and ear. Oral cavity normal EYES: Pupils equal. Conjunctiva normal. NECK: JVD not raised. Mass not palpable. RESPIRATORY: Respiratory effort normal. Lungs clear to auscultation. CARDIOVASCULAR: S1, S2 present ABDOMEN: Soft. No tenderness. No mass palpable. PSYCHIATRY: Alert and oriented x3. Mood and affect normal. - Labs CBC & Chem 7: 04/09/21 07:01 04/09/21 07:01 Labs: Abnormal Lab Results - Last 24 Hours (Table) 04/08/21 04/09/21 04/09/21 Range/Units 14:56 07:01 07:01 WBC 0.1 L* (3.8-10.6) k/uL RBC 2.11 L (4.30-5.90) m/uL Hgb 7.1 L (13.0-17.5) gm/dL Hct 20.9 L (39.0-53.0) % RDW 20.6 H (11.5-15.5) % Plt Count 11 L* (150-450) k/uL Chloride 111 H (96-109) mmol/L Creatinine 0.5 L (0.6-1.5) mg/dL BUN/Creatinine Ratio 22.00 H (12.00-20.00) Ratio Calcium 8.3 L (8.7-10.3) mg/dL Procalcitonin 0.24 H (0.02-0.09) ng/mL Microbiology - Last 24 Hours (Table) 04/04/21 17:42 Blood Culture Gram Stain - Final Blood Blood Culture - Final Coagulase Negative Staph 04/07/21 20:29 Blood Culture - Preliminary Blood No Growth after 24 hours 04/04/21 17:33 Blood Culture - Preliminary Blood No Growth after 96 hours Assessment and Plan Assessment: -Acute myeloid leukemia, status post induction treatment and has completed day 5 of chemotherapy -Febrile neutropenia, patient continued on IV Levaquin along with vancomycin and infectious disease following closely -Blood cultures bacteremia, coagulase-negative staph, most recent negative and infectious disease is following -Paroxysmal atrial fibrillation with RVR, has discontinued IV Cardizem and maint ained on Toprol-XL presently rate controlled -Bicytopenia due to antineoplastic chemotherapy: Slow to respond -GERD -Hyperuricemia -Petechial rash, possibly secondary to initial antibiotic and will continue to monitor closely and will use Benadryl topical and oral as needed Plan: Continue with IV vancomycin along with Levaquin and will continue to follow along closely with oncology along with infectious disease. Patient to transfuse if less than 7 and platelets less than 10 per oncology recommendations. No transfusion today. We will continue to follow along closely and make further recommendations based on the clinical course of the patient. Thank you for this consultation.
[2021-04-09] MEDS: diphenhydrAMINE 2% CREAM 28.4 GM TUBE TOPICAL SCH ×2 (17:29→20:34)
[2021-04-09] MEDS: LEVOFLOXACIN 500MG-D5W PMX 500 MG in DEXTROSE/WATER 1 100ML.BAG IVPB SCH (19:24)
[2021-04-09] MEDS: ATORVASTATIN 20 MG TAB PO SCH (19:24)
[2021-04-09] MEDS: FLUCONAZOLE 100 MG TAB PO SCH (20:32)
[2021-04-09] MEDS: ACETAMINOPHEN TAB 325 MG TAB PO PRN (20:32)
[2021-04-09] MEDS: [UNRECOGNIZED DRUG - OTHER] PO SCH (20:33)
[2021-04-09] MEDS ORDERED: [UNRECOGNIZED DRUG - OTHER] PO SCH (21:00)
[2021-04-10] MEDS: VANCOMYCIN 2,000 MG in SODIUM CHLORIDE 0.9% 500 ML 500 ML IVPB SCH ×2 (00:17→08:01)
[2021-04-10] MEDS: SODIUM CHLORIDE 0.9% 1,000 ML IV SCH ×2 (00:17→11:40)
[2021-04-10 06:29] LABS: ALT 20 U/L (4-49); AST 22 U/L (17-59); African American GFR (CKD) >90 (>60 ml/min/1.73 sqM); Albumin 3.2 g/dL (3.5-5.0); Albumin/Globulin Ratio 1.3; Alkaline Phosphatase 95 U/L (38-126); Anion Gap 7 mmol/L; Blood Urea Nitrogen 10 mg/dL (9-20); Calcium 8.9 mg/dL (8.4-10.2); Carbon Dioxide 25 mmol/L (22-30); Chloride 108 mmol/L (98-107); Globulin 2.5 g/dL; Glucose 105 mg/dL (74-99); Non-African American GFR(CKD) >90 (>60 ml/min/1.73 sqM); Potassium 3.9 mmol/L (3.5-5.1); Sodium 140 mmol/L (137-145); Total Bilirubin 0.5 mg/dL (0.2-1.3); Total Protein 5.7 g/dL (6.3-8.2)
[2021-04-10 06:32] LABS: Anisocytosis Slight; HCT 20.5 % (39.0-53.0); Hypochromasia Moderate; MCHC 33.2 g/dL (31.0-37.0); MCV 99.7 fL (80.0-100.0); Macrocytosis Moderate; Mean Platelet Volume 7.7; Poikilocytosis Slight; RBC 2.06 m/uL (4.30-5.90); RDW 19.9 % (11.5-15.5)
[2021-04-10 06:52] LABS: WBC 0.1 k/uL (3.8-10.6)
[2021-04-10 06:53] LABS: Platelet Count 7 k/uL (150-450)
[2021-04-10 06:55] LABS: HGB 6.8 gm/dL (13.0-17.5)
[2021-04-10] MEDS: ACYCLOVIR 200 MG CAP PO SCH (08:01)
[2021-04-10] MEDS: METOPROLOL SUCCINATE (ER) 25 MG TAB.ER.24H PO SCH (08:01)
[2021-04-10] MEDS: METOPROLOL SUCCINATE (ER) 50 MG TAB.ER.24H PO SCH (08:01)
[2021-04-10] MEDS: LORATADINE 10 MG TAB PO SCH (08:02)
[2021-04-10] MEDS: FOLIC ACID 1 MG TAB PO SCH (08:02)
[2021-04-10] MEDS: PANTOPRAZOLE 40 MG TABLET PO SCH (08:02)
[2021-04-10] MEDS: CHOLECALCIFEROL 25 MCG (1000 IU) TABLET PO SCH (08:02)
[2021-04-10] MEDS: NYSTATIN 100,000 UNIT/ML SUSP 500,000 UNIT/5 ML CUP PO SCH ×2 (08:02→11:40)
[2021-04-10] MEDS: diphenhydrAMINE 2% CREAM 28.4 GM TUBE TOPICAL SCH (08:03)
[2021-04-10] MEDS: SALT AND SODA MOUTHWASH 1,000 ML PO SCH ×2 (08:03→11:40)
[2021-04-10] MEDS: CHLORHEXIDINE GLUCONATE 15 ML CUP MUCOUS MEM SCH (08:03)
[2021-04-10] MEDS: prednisoLONE ACETATE 1% OPHTH DROPS 5 ML BTL BOTH EYES SCH ×2 (08:04→11:40)
[2021-04-10] MEDS: [UNRECOGNIZED DRUG - OTHER] PO SCH (08:04)
[2021-04-10 14:33] VITALS: BP 126/75; PULSE 98; RESP 16; TEMP 98
--- NOTE | 2021-04-10 15:02 | P.PN ---
Subjective Progress Note Date: 04/10/21 Principal diagnosis: AML, re-induction, FLT3 mutation, started Rydapt 04/09/21-evening dose In f/u today pt is feeling pretty good, rash is improved, no fever, bleeding. PICC culture is neg. Patient has no oral irritation, mild nausea after last nights dose of rydapt but, did ok with today's dose. No vomiting, difficulty in breathing, abdominal pain or cramping, appetite is fair to good, no acute changes in bowel or bladder habits. Objective - Vital Signs Vital signs: Vital Signs Temp 98.7 F 04/10/21 04:16 Pulse 100 04/10/21 04:16 Resp 16 04/10/21 04:16 BP 130/68 04/10/21 04:16 Pulse Ox 99 04/10/21 04:16 Intake & Output 04/09/21 04/10/21 04/10/21 18:59 06:59 18:59 Intake Total 2220 Balance 2220 Weight 110.6 kg 110.3 kg Intake: Intake, IV Titration 1500 Amount Levofloxacin 500Mg-D5w 100 Pmx 500 mg In Dextrose/ Water 1 100ml.bag @ 100 mls/hr IVPB Q24H [facility] Rx#: [id number] Sodium Chloride 0.9% 1, 900 000 ml @ 75 mls/hr IV . [id number] [facility] Rx#:[id number] Vancomycin 2,000 mg In 500 Sodium Chloride 0.9% 500 ml 500 ml @ 167 mls/hr IVPB Q8H [facility] Rx#: [id number] Oral 720 Other: Voiding Method Toilet Toilet Urinal Urinal # Voids 2 1 - Constitutional General appearance: Present: average body habitus, cooperative, no acute distress - EENT Eyes: Present: anicteric sclerae, EOMI ENT: Present: hearing grossly normal, normal oropharynx - Respiratory Respiratory: bilateral: CTA - Cardiovascular Rhythm: regular Heart sounds: normal: S1, S2 Abnormal Heart Sounds: Absent: systolic murmur, diastolic murmur, rub, S3 Gallop, S4 Gallop, click, other - Peripheral edema leg Peripheral Edema: bilateral: None - Gastrointestinal General gastrointestinal: Present: normal bowel sounds, soft - Integumentary Integumentary Comment(s): abd, extremity red, macular rash is reduced greatly Integumentary: Present: pale - Neurologic Neurologic: Present: CNII-XII intact - Musculoskeletal Musculoskeletal: Present: strength equal bilaterally - Psychiatric Psychiatric: Present: A&O x's 3, appropriate affect, intact judgment & insight - Labs CBC & Chem 7: 04/10/21 05:22 04/10/21 05:22 Labs: Abnormal Lab Results - Last 24 Hours (Table) 04/09/21 04/10/21 04/10/21 Range/Units 07:01 05:22 05:22 WBC 0.1 L* (3.8-10.6) k/uL RBC 2.06 L (4.30-5.90) m/uL Hgb 6.8 L* (13.0-17.5) gm/dL Hct 20.5 L (39.0-53.0) % RDW 19.9 H (11.5-15.5) % Plt Count 7 L* (150-450) k/uL Chloride 111 H 108 H (96-109) mmol/L Creatinine 0.5 L 0.57 L (0.6-1.5) mg/dL BUN/Creatinine Ratio 22.00 H (12.00-20.00) Ratio Glucose 105 H (74-99) mg/dL Calcium 8.3 L (8.7-10.3) mg/dL Total Protein 5.7 L (6.3-8.2) g/dL Albumin 3.2 L (3.5-5.0) g/dL Microbiology - Last 24 Hours (Table) 04/07/21 20:29 Blood Culture - Preliminary Blood No Growth after 48 hours 04/04/21 17:33 Blood Culture - Preliminary Blood No Growth after 120 hours 04/08/21 14:56 Blood Culture - Preliminary Blood No Growth after 24 hours 04/04/21 17:42 Blood Culture Gram Stain - Final Blood Blood Culture - Final Coagulase Negative Staph Assessment and Plan (1) AML (acute myeloid leukemia) Narrative/Plan: FLT 3 mutation. He started rydapt 04/09/21, evening dose. Med was brought from home. Hgb 6.8, 1 unit PRBCs irradiated. Plt 7000, 1 unit SDP irradiated. No GCSF yet Status post reinduction chemo for disease that did not have adequate response to 1st induction treatment. Patient will be on antiviral, antibiotic, antifungal on discharge-sent to his [facility]. Discussed with ID, no abx needed from infection standpoint if PICC line culture negative-confirmed with RN, she diane from PICC line Appt in ofc for CBC in 2 days in DC summary Soon to f/u/meet with transplant team? Current Visit: Yes Status: Acute Priority: High Code(s): C92.00 - ACUTE MYELOBLASTIC LEUKEMIA, NOT HAVING ACHIEVED REMISSION SNOMED Code(s): 07340288
--- NOTE | 2021-04-10 15:38 | P.DS ---
Providers Date of admission: 04/02/21 09:02 Expected date of discharge: 04/10/21 Attending physician: Leif Gresham Consults: 04/02/21 15:37 Consult Physician Routine Consulting Provider: Patrice Gann Consult Reason/Comments: medical management Do you want consulting provider notified?: Yes 04/06/21 17:00 Consult Physician Routine Consulting Provider: Israel York Consult Reason/Comments: Intermittent ventr arryth Do you want consulting provider notified?: Yes 04/07/21 20:00 Consult Physician Routine Consulting Provider: Alisia Huitron Consult Reason/Comments: Febrile neutropenia Do you want consulting provider notified?: Yes Primary care physician: Ronn Hough - Discharge Diagnosis(es) (1) AML (acute myeloid leukemia) Current Visit: Yes Status: Acute Priority: High Hospital Course: Admitted for re-induction chemotherapy. Had fever 100.4F on 04/07, 1 blood culture come back positive, none drawn from PICC. Had reaction to vancomycin (rash), no other symptoms so he remained on. PICC culture neg at 24 hours. Discussed with ID, no abx needed from that standpoint. Pt was started in FLT3 mutation oral med rydapt 04/09/21, day 8-21 of treatment, evening dose only. Mild nausea, antiemetic worked well. He has antiemetics at home. In f/u today pt is feeling pretty good, rash is improved, no fever, bleeding, vomiting, difficulty in breathing, abdominal pain or cramping, appetite is fair to good, no acute changes in bowel or bladder habits. Assessment: See progress note dated same day-no new findings, rash better Patient Condition at Discharge: Fair Plan - Discharge Summary New Discharge Prescriptions: No Action Acyclovir [Zovirax] 400 mg PO BID #60 cap Levofloxacin [Levaquin] 750 mg PO DAILY Atorvastatin [Lipitor] 20 mg PO HS #30 tab Omeprazole [PriLOSEC] 40 mg PO BID Chlorhexidine Gluconate [Peridex] 15 ml PO DAILY Ondansetron Odt [Zofran ODT] 4 mg PO Q6HR PRN #45 tab PRN Reason: Nausea Nystatin 100,000 Unit/ml Susp [Mycostatin Oral Susp] 500,000 unit PO QID #360 ml Cholecalciferol [Vitamin D3 (25 Mcg = 1000 Iu)] 50 mcg PO DAILY #60 tablet Folic Acid 1 mg PO DAILY #30 tablet Loratadine [Claritin] 10 mg PO DAILY Nitroglycerin Sl Tabs [Nitrostat] 0.4 mg SUBLINGUAL Q5M PRN #30 tab PRN Reason: Chest Pain Metoprolol Succinate (ER) [Toprol XL] 25 mg PO DAILY #30 tab.er.24h Discharge Medication List Chlorhexidine Gluconate [Peridex] 15 ml PO DAILY 01/25/21 [History] Omeprazole [PriLOSEC] 40 mg PO BID 01/25/21 [History] Acyclovir [Zovirax] 400 mg PO BID #60 cap 02/02/21 [Rx] Ondansetron Odt [Zofran ODT] 4 mg PO Q6HR PRN #45 tab 02/02/21 [Rx] Cholecalciferol [Vitamin D3 (25 Mcg = 1000 Iu)] 50 mcg PO DAILY #60 tablet 02/03/21 [Rx] Folic Acid 1 mg PO DAILY #30 tablet 02/03/21 [Rx] Nystatin 100,000 Unit/ml Susp [Mycostatin Oral Susp] 500,000 unit PO QID #360 ml 02/03/21 [Rx] Levofloxacin [Levaquin] 750 mg PO DAILY 02/15/21 [History] Loratadine [Claritin] 10 mg PO DAILY 02/15/21 [History] Atorvastatin [Lipitor] 20 mg PO HS #30 tab 02/16/21 [Rx] Metoprolol Succinate (ER) [Toprol XL] 25 mg PO DAILY #30 tab.er.24h 02/16/21 [Rx] Nitroglycerin Sl Tabs [Nitrostat] 0.4 mg SUBLINGUAL Q5M PRN #30 tab 02/16/21 [Rx] Follow up Appointment(s)/Referral(s): Leif Gresham MD [STAFF PHYSICIAN] - 04/12/21 10:30 am (lab encounter at [facility] ) Patient Instructions/Handouts: Acute Myeloid Leukemia (DC), Anemia (DC) Discharge Disposition: HOME SELF-CARE Pending Studies Pending Results: none
--- NOTE | 2021-04-10 15:40 | PN ---
PROGRESS NOTE DATE OF SERVICE: 04/10/2021 REASON FOR FOLLOWUP: Positive blood culture, coagulase-negative staph, febrile neutropenia. INTERVAL HISTORY: The patient did have a low-grade fever of 100 degrees Fahrenheit. The patient denies having any patient overall is feeling better, breathing comfortably. No chest pain, shortness of breath or cough. No nausea, vomiting or diarrhea. PHYSICAL EXAMINATION: Blood pressure 135/85 with a pulse of 97, temperature 98.7. He is 100% on room air. GENERAL DESCRIPTION: General description is a young male up in the bed in no distress. RESPIRATORY SYSTEM: Unlabored breathing. Decreased breath sounds at the bases. No wheeze. HEART: S1, S2. Regular rate and rhythm. ABDOMEN: Soft. No tenderness. LABS: Hemoglobin is white count 0.1. Platelet count is 7. Blood culture repeat has been negative. Blood culture from the PICC line is negative for coagulase-negative Staph. DIAGNOSTIC IMPRESSION AND PLAN: Patient with a positive blood culture with coagulase-negative Staph likely contaminant. Blood culture from the PICC line is negative, making it less likely to be a PICC line infection. No need for any antibiotics specifically for the coagulase- negative Staph on discharge. This was discussed in detail with the nurse practitioner for the oncology team. MMODL / IJN: [id number] /
--- NOTE | 2021-04-10 16:02 | P.PN ---
Subjective Progress Note Date: 04/10/21 Presenting complaint: AML-reinduction Interval history: Patient is getting chemotherapy for AML. Reinduction. Cytarabine, fludarabine, April 04: Sitting up in a chair. No nausea vomiting. Oral intake good. No skin changes. No respiratory symptoms. at the bedside. April 05: Day 4 of chemotherapy. Oral intake good. In and about. Some drop in blood counts. No dermatological or GI or respiratory or cardiac symptoms. Given 1 unit of PRBC April 06: Up and about in the hallway. Wanting a laxative for a good bowel movement. Did have a small 1 earlier. Breathing stable. No new symptoms. Decrease in hemoglobin and platelets. April 07: Yesterday evening patient went into A. fib/AV donny reentrant tachycardia with rapid ventricular rate. Moved to the cardiology floor. Put on IV Cardizem. Otherwise feeling well. Breathing stable or chest pain. Oral intake fair. Also receiving 1 unit of blood this morning. Also been having fever. Started on IV vancomycin and Levaquin April 08: Fevers have been down. Has a rash in the body. Exact cause unknown. Also possible petechiae on the harper. Oral intake good. Patient usually received his third unit of PRBC this morning. Received platelets yesterday. 04/09/2021 Patient is seen in follow-up currently on oncology unit and off IV Cardizem and maintaining sinus mechanism. Patient continues on IV antibiotics in the form of Levaquin and vancomycin with infectious disease following closely. Patient continues to have a rash that he states is improving and this rash occurred status post initial antibiotic administration. Patient feels much improved and has remained afebrile for 48 hours. Blood pressure has been stable and patient is breathing comfortably with no reports of shortness of breath at 100% on room air. Will add topical Benadryl for the itching of the upper extremities. White blood count is 0.1, hemoglobin is 7.1, platelets are 11, sodium is 143 with a potassium of 4.2 current creatinine is 0.5. 04/10/2021 Patient is seen in follow-up this morning awaiting to receive a unit of PRBCs as hemoglobin was 6.8 this morning and white blood count continues to be 0.1. Platelets were also found to be low at 7 and awaiting to receive a unit of platelets. BMP within normal limits. Patient continues on IV antibiotics and infectious disease is following and working on discharge antibiotic recommenda tions. Patient will follow with oncology Dr. Gresham in the office in 2 days. Patient is adamant about getting home and family at the bedside. Review of systems: Constitutional: No reports of fatigue, fever, or chills, reports generalized itching to the upper extremities that has improved Cardiovascular: No reports of chest pain or palpitations Respiratory: No reports of shortness of breath or cough GI: No reports of nausea, vomiting, or diarrhea : No reports of dysuria or retention Neurovascular: No reports of weakness or numbness All medications have been reviewed Objective - Vital Signs Vital signs: Vital Signs Temp 98.7 F 04/10/21 04:16 Pulse 100 04/10/21 04:16 Resp 16 04/10/21 04:16 BP 130/68 04/10/21 04:16 Pulse Ox 99 04/10/21 04:16 Intake & Output 04/09/21 04/10/21 04/10/21 18:59 06:59 18:59 Intake Total 2220 Balance 2220 Weight 110.6 kg 110.3 kg Intake: Intake, IV Titration 1500 Amount Levofloxacin 500Mg-D5w 100 Pmx 500 mg In Dextrose/ Water 1 100ml.bag @ 100 mls/hr IVPB Q24H [facility] Rx#: [id number] Sodium Chloride 0.9% 1, 900 000 ml @ 75 mls/hr IV . [id number] [facility] Rx#:[id number] Vancomycin 2,000 mg In 500 Sodium Chloride 0.9% 500 ml 500 ml @ 167 mls/hr IVPB Q8H [facility] Rx#: [id number] Oral 720 Other: Voiding Method Toilet Toilet Urinal Urinal # Voids 2 1 - Exam VITAL SIGNS: Afebrile currently, patient continues to have intermittent low- grade temps throughout the night GENERAL APPEARANCE: Sitting up in the chair, comfortable DERMATOLOGICAL: Possible scattered petechial rash on the harper and bilateral forearms back upper chest. HEENT: Normal external appearance of nose and ear. Oral cavity normal EYES: Pupils equal. Conjunctiva normal. NECK: JVD not raised. Mass not palpable. RESPIRATORY: Respiratory effort normal. Lungs clear to auscultation. CARDIOVASCULAR: S1, S2 present ABDOMEN: Soft. No tenderness. No mass palpable. PSYCHIATRY: Alert and oriented x3. Mood and affect normal. - Labs CBC & Chem 7: 04/10/21 05:22 04/10/21 05:22 Labs: Abnormal Lab Results - Last 24 Hours (Table) 04/09/21 04/10/21 04/10/21 Range/Units 07:01 05:22 05:22 WBC 0.1 L* (3.8-10.6) k/uL RBC 2.06 L (4.30-5.90) m/uL Hgb 6.8 L* (13.0-17.5) gm/dL Hct 20.5 L (39.0-53.0) % RDW 19.9 H (11.5-15.5) % Plt Count 7 L* (150-450) k/uL Chloride 111 H 108 H (96-109) mmol/L Creatinine 0.5 L 0.57 L (0.6-1.5) mg/dL BUN/Creatinine Ratio 22.00 H (12.00-20.00) Ratio Glucose 105 H (74-99) mg/dL Calcium 8.3 L (8.7-10.3) mg/dL Total Protein 5.7 L (6.3-8.2) g/dL Albumin 3.2 L (3.5-5.0) g/dL Microbiology - Last 24 Hours (Table) 04/07/21 20:29 Blood Culture - Preliminary Blood No Growth after 48 hours 04/04/21 17:33 Blood Culture - Preliminary Blood No Growth after 120 hours 04/08/21 14:56 Blood Culture - Preliminary Blood No Growth after 24 hours 04/04/21 17:42 Blood Culture Gram Stain - Final Blood Blood Culture - Final Coagulase Negative Staph Assessment and Plan Assessment: -Acute myeloid leukemia, status post induction treatment and has completed day 5 of chemotherapy -Febrile neutropenia, patient continued on IV Levaquin along with vancomycin and infectious disease following closely -Blood cultures bacteremia, coagulase-negative staph, most recent negative and infectious disease is following -Paroxysmal atrial fibrillation with RVR, has discontinued IV Cardizem and maintained on Toprol-XL presently rate controlled -Bicytopenia due to antineoplastic chemotherapy: Slow to respond -GERD -Hyperuricemia -Petechial rash, possibly secondary to initial antibiotic and will continue to monitor closely and will use Benadryl topical and oral as needed Plan: Recommend to transfuse 1 unit of PRBCs along with platelets and oncology has ordered that and pending at this time. Patient continues IV antibiotic therapy with infectious disease following and making recommendations on discharge antibiotics. Patient continues to have low-grade intermittent fevers and instructed to monitor closely in the outpatient setting. Patient does have an appointment in [address] Gresham in the clinic. Patient is adamant about going home today and family is at the bedside. Recommend to continue with Benadryl topical as needed and monitor the rash closely for any signs of worsening or infection. Patient and verbalized understanding. Will continue to monitor closely and follow along with oncology during hospitalization. Thank you for this consultation. Patient is being discharged later this afternoon.
[2021-04-11] MEDS ORDERED: VANCOMYCIN TROUGH DUE 1 EACH MISC MISCELLANE ONE (07:00)
== END 2021-04-10 15:58 | disposition home or self-care (01) | DRG 837 ==
LOC: 5NMEDONC 09:02 → 3SCARD 04-07 04:04 → 5NMEDONC 04-07 17:42
PROVIDERS: ADMIT Internal Medicine Hematology & Oncology; ATTEND Internal Medicine Hematology & Oncology
PROC: XW043B3 Introduction of Cytarabine and Daunorubicin Liposome Antineoplastic into Central Vein, Percutaneous Approach, New Technology Group 3 (ICD-10-PCS; principal; 2021-04-02 19:20)
PROC: 02HV33Z Insertion of Infusion Device into Superior Vena Cava, Percutaneous Approach (ICD-10-PCS; 2021-04-02 19:20)
PROC: 3E04317 Introduction of Other Thrombolytic into Central Vein, Percutaneous Approach (ICD-10-PCS; 2021-04-02 19:20)
DX: Z51.11 Encounter for antineoplastic chemotherapy (principal); D61.810 Antineoplastic chemotherapy induced pancytopenia; C92.00 Acute myeloblastic leukemia, not having achieved remission; I47.1 Supraventricular tachycardia; I47.2 Ventricular tachycardia; T82.898A Other specified complication of vascular prosthetic devices, implants and grafts, initial encounter; D75.89 Other specified diseases of blood and blood-forming organs; E66.9 Obesity, unspecified; I48.0 Paroxysmal atrial fibrillation; K21.9 Gastro-esophageal reflux disease without esophagitis; K44.9 Diaphragmatic hernia without obstruction or gangrene; L27.0 Generalized skin eruption due to drugs and medicaments taken internally; T45.1X5A Adverse effect of antineoplastic and immunosuppressive drugs, initial encounter; R50.81 Fever presenting with conditions classified elsewhere; Z68.32 Body mass index [BMI] 32.0-32.9, adult; Z79.2 Long term (current) use of antibiotics; Z79.899 Other long term (current) drug therapy; Z90.89 Acquired absence of other organs; Z98.890 Other specified postprocedural states; Z82.61 Family history of arthritis
CPT/HCPCS: 36573; 71045; 76937; 77001; 80048; 80053; 80202; 81001; 83615; 83735; 84100; 84145; 84443; 84550; 85025; 85027; 85610; 85730; 86140; 86850; 86900; 86901; 86920; 87040; 87086; 93005; 93308